=== PATIENT | female | born 1940 | race Caucasian/White ===

== ENCOUNTER 2016-11-28 13:20 | Observation (INO) | payer MEDICARE, OTHER ==
[2016-11-28] MEDS ORDERED: Sodium Chloride 0.9% 10 ML Syringe FLUSH PRN (13:35)
[2016-11-28] MEDS ORDERED: Aspirin 81 MG Tab.Chew PO ONE (13:39)
[2016-11-28] MEDS ORDERED: Labetalol 20 MG/4 ML Syringe IVPUSH ONE (13:40)
--- NOTE | 2016-11-28 13:45 | EDM.PDOC ---
[id number] 4d C/O Irregular heart beat Time Seen by Provider: 11/28/16 13:30 Source of Information: Reports: Patient History Limitations: Reports: No Limitations - History of Present Illness Onset: Gradual Onset Date: 11/28/16 Duration: Hour(s):, Intermittent Location: Reports: Chest, Upper Extremity, Left Severity: Mild Improves with: Reports: None Worsens with: Reports: None Associated Symptoms: Reports: Confusion (for the past 3 to 4 month notice increase confusion with the left hand numbness), Chest Pain Treatments STOCK TURNER: Reports: Aspirin, EKG, Other Medication(s) - Related Data Allergies Allergy/AdvReac Type Severity Reaction Status Date / Time albuterol Allergy Vomiting Verified 11/28/16 13:44 [From Proventil HFA] nitrofurantoin Allergy Rash Verified 11/28/16 13:44 macrocrystalline [From Macrobid] Penicillins Allergy Cannot Verified 11/28/16 13:44 Remember sulfamethoxazole Allergy Itching Verified 11/28/16 13:44 [From Bactrim] Home Meds: Home Meds Aspirin [Halfprin] 81 mg PO DAILY 06/05/13 [History] Calcium Carbonate/Vitamin D3 [Calcium 500 + Vit D 400] 1 tab PO BID 06/05/13 [ History] Diltiazem HCl [Diltiazem 24Hr ER] 180 mg PO BEDTIME 06/05/13 [History] Metoprolol Succinate [Toprol XL 100mg] 50 mg PO DAILY 06/05/13 [History] [place]-3 Fatty Acids/Fish Oil [Fish Oil 1,200 mg Softgel] 600 mg PO BID 06/05/13 [History] Ranitidine [Zantac] 150 mg PO BID 06/05/13 [History] atorvaSTATin [Lipitor] 20 mg PO BEDTIME 06/05/13 [History] Hydrochlorothiazide 12.5 mg PO DAILY 11/28/16 [History] Losartan Potassium [Cozaar] 100 mg PO DAILY 11/28/16 [History] Past Medical History HEENT History: Reports: Impaired Vision Cardiovascular History: Reports: Heart Murmur, High Cholesterol, Hypertension Other Cardiovascular History: vasovagal response Gastrointestinal History: Reports: GERD, Other (See Below) Other Gastrointestinal History: darren s esophagus [employer] History: Reports: Other (See Below) Other OB/BYN History: cysts removed from ovaries Musculoskeletal History: Reports: Arthritis Neurological History: Reports: Seizure Psychiatric History: Reports: None Endocrine/Metabolic History: Reports: None Hematologic History: Reports: None Immunologic History: Reports: None Oncologic (Cancer) History: Reports: None Dermatologic History: Reports: None - Infectious Disease History Infectious Disease History: Reports: Chicken Pox, Measles, Shingles - Past Surgical History HEENT Surgical History: Reports: Cataract Surgery Musculoskeletal Surgical History: Reports: Knee Replacement, Other (See Below) Social & Family History - Tobacco Use Smoking Status *Q: Never Smoker Second Hand Smoke Exposure: Yes - Caffeine Use Caffeine Use: Reports: Coffee - Alcohol Use Days Per Week of Alcohol Use: 0 - Recreational Drug Use Recreational Drug Use: No - Living Situation & Occupation Living situation: Reports: , with Family ED ROS GENERAL - Review of Systems Review Of Systems: See Below Constitutional: Reports: No Symptoms HEENT: Reports: No Symptoms Respiratory: Reports: Shortness of Breath Cardiovascular: Reports: Chest Pain, Blood Pressure Problem, Other (atrial fib.) Endocrine: Reports: No Symptoms GI/Abdominal: Reports: No Symptoms : Reports: No Symptoms Musculoskeletal: Reports: Other (left arm numbness) Skin: Reports: No Symptoms Neurological: Reports: Confusion, Numbness (left arm) Psychiatric: Reports: No Symptoms Hematologic/Lymphatic: Reports: No Symptoms Immunologic: Reports: No Symptoms ED EXAM, GENERAL - Physical Exam Exam: See Below Exam Limited By: No Limitations General Appearance: Alert, WD/WN, Obese Ears: Normal External Exam, Normal Canal Nose: Normal Inspection, Normal Mucosa, No Blood Throat/Mouth: Normal Inspection, Normal Lips Head: Atraumatic, Normocephalic. No: Facial Swelling, Facial Tenderness, Sinus Tenderness Neck: Normal Inspection, Supple Respiratory/Chest: No Respiratory Distress, Lungs Clear, Normal Breath Sounds, No Accessory Muscle Use, Chest Non-Tender Cardiovascular: Regular Rate, Rhythm, No Edema, No Murmur, No Rub GI/Abdominal: Normal Bowel Sounds, Soft Course - Vital Signs Last Recorded V/S: Last Vital Signs Temp 97.5 F 11/28/16 13:49 Pulse 51 L 11/28/16 14:55 Resp 20 11/28/16 14:55 BP 153/62 H 11/28/16 14:55 Pulse Ox 93 L 11/28/16 14:55 - Orders/Labs/Meds Orders: Active Orders 24 hr Category Date Time Status Admission Status [Patient Status] [ADT] Routine ADT 11/28/16 15:09 Active Cardiac Monitoring [RC] . DIRECTED Care 11/28/16 14:18 Active EKG Documentation Completion [RC] ASDIRECTED Care 11/28/16 13:36 Active CXR [Chest 2V] [CR] Stat Exams 11/28/16 13:34 Taken Head wo Cont [CT] Stat Exams 11/28/16 14:16 Taken Sodium Chloride 0.9% [Saline Flush] Med 11/28/16 13:35 Active 10 ml FLUSH ASDIRECTED PRN Saline Lock Insert [OM.PC] Stat Oth 11/28/16 13:34 Ordered Medication Orders Aspirin (Halfprin) 81 mg PO DAILY [facility] Calcium Carbonate (Caltrate 600+D 1500 Mg-400 Units) 1 tab PO BID FERN Diltiazem HCl (Cardizem Cd) 120 mg PO Q12H [facility]ERN Enoxaparin Sodium (Lovenox) 40 mg SUBCUT BEDTIME FERN Hydrochlorothiazide (Hydrochlorothiazide) 12.5 mg PO DAILY [facility] Non-Formulary Medication (Losartan Potassium [Cozaar]) 100 mg PO DAILY [facility]ERN Non-Formulary Medication (Metoprolol Succinate [Toprol Xl 100mg]) 50 mg PO DAILY [facility]ERN Non-Formulary Medication ([place]-3 Fatty Acids/Fish Oil [Fish Oil 1,200 Mg Softgel]) 600 mg PO BID FERN Non-Formulary Medication (Ranitidine [Zantac]) 150 mg PO BID [facility] Non-Formulary Medication (Atorvastatin [Lipitor]) 20 mg PO BEDTIME FERN Sodium Chloride (Saline Flush) 10 ml FLUSH ASDIRECTED PRN PRN Reason: Keep Vein Open Last Admin: 11/28/16 14:03 Dose: 10 ml Labs: Laboratory Tests 11/28/16 11/28/16 11/28/16 Range/Units 13:40 13:40 13:40 WBC 5.4 (4.0-10.2) K/uL RBC 4.25 (3.77-5.09) M/uL Hgb 14.1 (11.7-15.5) g/dL Hct 40.5 (34.0-46.0) % MCV 95.3 (84.0-98.0) fL MCH 33.2 (28.2-33.3) pg MCHC 34.8 (31.7-36.0) g/dL RDW 12.2 (11.2-14.1) % Plt Count 174 (150-350) K/uL Neut % (Auto) 51.8 (45.0-80.0) % Lymph % (Auto) 34.7 (10.0-50.0) % [place] % (Auto) 7.0 (2.0-14.0) % Eos % (Auto) 4.8 (0.0-5.0) % Baso % (Auto) 1.7 (0.0-2.0) % Neut # (Auto) 2.81 (1.40-7.00) K/uL Lymph # (Auto) 1.88 (0.50-3.50) K/uL [place] # (Auto) 0.38 (0.00-1.00) K/uL Eos # (Auto) 0.26 (0.00-0.50) K/uL Baso # (Auto) 0.09 (0.00-0.20) K/uL D-Dimer, Quantitative (0-400) ng/mL Sodium 139 (136-145) mmol/L Potassium 3.2 L (3.5-5.1) mmol/L Chloride 103 (98-107) mmol/L Carbon Dioxide 30.4 (21.0-32.0) mmol/L BUN 22 H (7-18) mg/dL Creatinine 0.97 (0.51-1.17) mg/dL Est Cr Clr Drug Dosing TNP Estimated GFR (MDRD) 56 mL/min Glucose 138 H (74-106) mg/dL Calcium 8.9 (8.5-10.1) mg/dL Troponin I 0.000 (0.000-0.056) ng/mL 11/28/16 Range/Units 13:40 WBC (4.0-10.2) K/uL RBC (3.77-5.09) M/uL Hgb (11.7-15.5) g/dL Hct (34.0-46.0) % MCV (84.0-98.0) fL MCH (28.2-33.3) pg MCHC (31.7-36.0) g/dL RDW (11.2-14.1) % Plt Count (150-350) K/uL Neut % (Auto) (45.0-80.0) % Lymph % (Auto) (10.0-50.0) % De[place] % (Auto) (2.0-14.0) % Eos % (Auto) (0.0-5.0) % Baso % (Auto) (0.0-2.0) % Neut # (Auto) (1.40-7.00) K/uL Lymph # (Auto) (0.50-3.50) K/uL Deuel # (Auto) (0.00-1.00) K/uL Eos # (Auto) (0.00-0.50) K/uL Baso # (Auto) (0.00-0.20) K/uL D-Dimer, Quantitative 439 H (0-400) ng/mL Sodium (136-145) mmol/L Potassium (3.5-5.1) mmol/L Chloride (98-107) mmol/L Carbon Dioxide (21.0-32.0) mmol/L BUN (7-18) mg/dL Creatinine (0.51-1.17) mg/dL Est Cr Clr Drug Dosing Estimated GFR (MDRD) mL/min Glucose (74-106) mg/dL Calcium (8.5-10.1) mg/dL Troponin I (0.000-0.056) ng/mL Meds: Medications Generic Name Dose Route Start Last Admin Trade Name Freq PRN Reason Stop Dose Admin Aspirin 81 mg 11/29/16 08:00 Halfprin PO DAILY FERN Calcium Carbonate 1 tab 11/28/16 18:00 Caltrate 600+D 1500 Mg-400 Units PO BID FERN Diltiazem HCl 120 mg 11/28/16 20:00 Cardizem Cd PO Q12H FERN Enoxaparin Sodium 40 mg 11/28/16 20:00 Lovenox SUBCUT BEDTIME FERN Hydrochlorothiazide 12.5 mg 11/29/16 08:00 Hydrochlorothiazide PO DAILY FERN Non-Formulary Medication 100 mg 11/29/16 08:00 Losartan Potassium [Cozaar] PO DAILY FERN Non-Formulary Medication 50 mg 11/29/16 08:00 Metoprolol Succinate [Toprol Xl 100mg] PO DAILY FERN Non-Formulary Medication 600 mg 11/28/16 18:00 [place]-3 Fatty Acids/Fish Oil [Fish Oil 1,200 Mg Softgel] PO BID FERN Non-Formulary Medication 150 mg 11/28/16 18:00 Ranitidine [Zantac] PO BID FERN Non-Formulary Medication 20 mg 11/28/16 20:00 Atorvastatin [Lipitor] PO BEDTIME FERN Sodium Chloride 10 ml 11/28/16 13:35 11/28/16 14:03 Saline Flush FLUSH 10 ml ASDIRECTED PRN Administration Keep Vein Open Discontinued Medications Generic Name Dose Route Start Last Admin Trade Name Freq PRN Reason Stop Dose Admin Aspirin 324 mg 11/28/16 13:39 11/28/16 13:48 Aspirin PO 11/28/16 13:40 324 mg ONETIME ONE Administration Iopamidol 100 ml 11/28/16 16:20 Isovue-370 (76%) IVPUSH 11/28/16 16:21 ONETIME ONE Labetalol HCl 10 mg 11/28/16 13:40 11/28/16 13:54 Normodyne IVPUSH 11/28/16 13:41 10 mg ONETIME ONE Administration Protocol Departure - Departure Time of Disposition: 15:18 Disposition: Refer to Observation Condition: fair Clinical Impression: Chest pain in adult - My Orders Last 24 Hours: My Active Orders 11/28/16 13:34 CXR [Chest 2V] [CR] Stat Saline Lock Insert [OM.PC] Stat 11/28/16 13:35 Sodium Chloride 0.9% [Saline Flush] 10 ml FLUSH ASDIRECTED PRN 11/28/16 13:36 EKG Documentation Completion [RC] ASDIRECTED 11/28/16 14:16 Head wo Cont [CT] Stat 11/28/16 14:18 Cardiac Monitoring [RC] . DIRECTED 11/28/16 15:09 Admission Status [Patient Status] [ADT] Routine - Assessment/Plan Last 24 Hours: My Active Orders 11/28/16 13:34 CXR [Chest 2V] [CR] Stat Saline Lock Insert [OM.PC] Stat 11/28/16 13:35 Sodium Chloride 0.9% [Saline Flush] 10 ml FLUSH ASDIRECTED PRN 11/28/16 13:36 EKG Documentation Completion [RC] ASDIRECTED 11/28/16 14:16 Head wo Cont [CT] Stat 11/28/16 14:18 Cardiac Monitoring [RC] . DIRECTED 11/28/16 15:09 Admission Status [Patient Status] [ADT] Routine
[2016-11-28 14:04] LABS: CHLORIDE,CL 103 mmol/L (98-107); SODIUM,NA 139 mmol/L (136-145)
[2016-11-28] MEDS ORDERED: Iopamidol 755 Mg/ML 100 ML Bottle IVPUSH ONE (16:20)
[2016-11-28] MEDS: Famotidine 20 MG Tab PO SCH (18:09)
[2016-11-28] MEDS: Calcium Carbonate/Vitamin D3 1500 MG-400 Units Tab PO SCH (18:10)
[2016-11-28] MEDS: Diltiazem 120 MG Cap.CD PO SCH (19:33)
[2016-11-28] MEDS ORDERED: Enoxaparin 40 MG/0.4 ML Syringe SUBCUT SCH (20:00)
[2016-11-28] MEDS ORDERED: atorvaSTATin 10 MG Tab PO SCH (20:00)
[2016-11-29 06:21] LABS: CHLORIDE,CL 106 mmol/L (98-107); SODIUM,NA 142 mmol/L (136-145)
[2016-11-29] MEDS: Calcium Carbonate/Vitamin D3 1500 MG-400 Units Tab PO SCH (07:14)
[2016-11-29] MEDS: Diltiazem 120 MG Cap.CD PO SCH (07:15)
[2016-11-29] MEDS: Famotidine 20 MG Tab PO SCH (07:16)
[2016-11-29 07:17] VITALS: BP 145/57
[2016-11-29] MEDS ORDERED: Hydrochlorothiazide 25 MG Tab PO SCH (08:00)
[2016-11-29] MEDS ORDERED: Losartan 50 MG Tab PO SCH (08:00)
[2016-11-29] MEDS ORDERED: Metoprolol Succinate 50 MG Tab.ER PO SCH (08:00)
[2016-11-29] MEDS ORDERED: Fish Oil/Omega-3 Fatty Acids 1 Gm Cap PO SCH (08:00)
[2016-11-29] MEDS ORDERED: Aspirin 81 MG Tab.EC PO SCH (08:00)
--- NOTE | 2016-11-29 09:29 | PCM.PN ---
- General Info Date of Service: 11/29/16 Admission Dx/Problem (Free Text): chest pain - Patient Data Vitals - most recent: Last Vital Signs Temp 98.3 F 11/29/16 08:00 Pulse 69 11/29/16 08:00 Resp 18 11/29/16 08:00 BP 145/57 H 11/29/16 08:00 Pulse Ox 94 L 11/29/16 08:00 Weight - most recent: 192 lb 8.016 oz I&O - last 24 hours: Intake & Output 11/28/16 11/29/16 11/29/16 22:59 06:59 14:59 Intake Total 940 1040 Output Total 1000 550 Balance -60 490 Lab Results last 24 hrs: Laboratory Results - last 24 hr 11/28/16 11/29/16 11/29/16 Range/Units 20:50 03:45 03:45 Sodium 142 (136-145) mmol/L Potassium 3.2 L (3.5-5.1) mmol/L Chloride 106 (98-107) mmol/L Carbon Dioxide 27.6 (21.0-32.0) mmol/L BUN 19 H (7-18) mg/dL Creatinine 0.89 (0.51-1.17) mg/dL Est Cr Clr Drug Dosing 40.58 mL/min Estimated GFR (MDRD) > 60 mL/min Glucose 95 (74-106) mg/dL Calcium 9.0 (8.5-10.1) mg/dL Troponin I 0.002 0.000 (0.000-0.056) ng/mL Med Orders - Current: Current Medications Aspirin (Halfprin) 81 mg PO DAILY [facility] Last Admin: 11/29/16 07:15 Dose: 81 mg Atorvastatin Calcium (Lipitor) 20 mg PO BEDTIME [facility] Last Admin: 11/28/16 19:33 Dose: 20 mg Calcium Carbonate (Caltrate 600+D 1500 Mg-400 Units) 1 tab PO BID [facility] Last Admin: 11/29/16 07:14 Dose: 1 tab Diltiazem HCl (Cardizem Cd) 120 mg PO Q12H [facility] Last Admin: 11/29/16 07:15 Dose: 120 mg Enoxaparin Sodium (Lovenox) 40 mg SUBCUT BEDTIME [facility] Last Admin: 11/28/16 19:39 Dose: 40 mg Famotidine (Pepcid) 10 mg PO BIDAC [facility] Last Admin: 11/29/16 07:16 Dose: 10 mg Fish Oil (Fish Oil) 1 gm PO DAILY [facility] Last Admin: 11/29/16 07:12 Dose: 1 gm Hydrochlorothiazide (Hydrochlorothiazide) 12.5 mg PO DAILY [facility] Last Admin: 11/29/16 07:13 Dose: 12.5 mg Losartan Potassium (Cozaar) 100 mg PO DAILY [facility] Last Admin: 11/29/16 07:14 Dose: 100 mg Metoprolol Succinate (Toprol Xl) 50 mg PO DAILY [facility] Last Admin: 11/29/16 07:15 Dose: 50 mg Sodium Chloride (Saline Flush) 10 ml FLUSH ASDIRECTED PRN PRN Reason: Keep Vein Open Last Admin: 11/28/16 14:03 Dose: 10 ml Discontinued Medications Aspirin (Aspirin) 324 mg PO ONETIME ONE Stop: 11/28/16 13:40 Last Admin: 11/28/16 13:48 Dose: 324 mg Iopamidol (Isovue-370 (76%)) 100 ml IVPUSH ONETIME ONE Stop: 11/28/16 16:21 Last Admin: 11/28/16 16:59 Dose: 100 ml Labetalol HCl (Normodyne) 10 mg IVPUSH ONETIME ONE PRN Reason: Protocol Stop: 11/28/16 13:41 Last Admin: 11/28/16 13:54 Dose: 10 mg - Problem List Review Problem List Initiated/Reviewed/Updated: Yes - My Orders Last 24 Hours: My Active Orders 11/28/16 15:54 Patient Status [ADT] Routine Ambulate [RC] ASDIRECTED Oxygen Therapy [RC] PRN VTE/DVT Education [RC] PER UNIT ROUTINE Vital Signs [RC] Q4H Resuscitation Status Routine 11/28/16 15:58 Cardiac Monitoring [RC] CONTINUOUS Notify Provider Vital Signs [RC] ASDIRECTED 11/28/16 16:05 EKG Documentation Completion [RC] ASDIRECTED 11/28/16 16:15 CTA Chest W WO Contrast [Ang Chest] [CT] Routine 11/28/16 17:30 Famotidine [Pepcid] 10 mg PO BIDAC 11/28/16 18:00 Calcium Carbonate/Vitamin D3 [Caltrate 600+D 1500 MG-400 Units] 1 tab PO BID 11/28/16 20:00 Diltiazem [Cardizem CD] 120 mg PO Q12H Enoxaparin [Lovenox] 40 mg SUBCUT BEDTIME atorvaSTATin [Lipitor] 20 mg PO BEDTIME 11/28/16 Dinner Regular Diet [DIET] 11/29/16 08:00 Aspirin [Halfprin] 81 mg PO DAILY Fish Oil/[place]-3 Fatty Acids [Fish Oil] 1 gm PO DAILY Hydrochlorothiazide 12.5 mg PO DAILY Losartan [Cozaar] 100 mg PO DAILY Metoprolol Succinate [Toprol XL] 50 mg PO DAILY 11/29/16 08:30 Venous Doppler Lwr Ext Bi [US] Routine
[2016-11-29] MEDS ORDERED: Potassium Chloride 20 MEQ Tab.ER PO SCH (09:30)
== END 2016-11-29 10:58 | disposition home or self-care (01) ==
LOC: LL.ED 13:20 → LL.MS 15:18
PROVIDERS: ADMIT Family Medicine; ATTEND Family Medicine
DX: R07.9 Chest pain, unspecified (principal); I10 Essential (primary) hypertension; E78.00 Pure hypercholesterolemia, unspecified; K21.9 Gastro-esophageal reflux disease without esophagitis; Z88.0 Allergy status to penicillin; Z88.2 Allergy status to sulfonamides; Z88.8 Allergy status to other drugs, medicaments and biological substances; Z79.82 Long term (current) use of aspirin; Z79.899 Other long term (current) drug therapy; Z98.890 Other specified postprocedural states; Z96.659 Presence of unspecified artificial knee joint
CPT/HCPCS: 36415; 70450; 71020; 71275; 80048; 84484; 85025; 85379; 93005; 93970; 96372; 96374; 99285; A9270; G0378; J1650; J7050; Q9967; 99217; 99219

== ENCOUNTER 2017-10-20 17:37 | Observation (INO) | payer MEDICARE, OTHER ==
[2017-10-20] MEDS ORDERED: Metoprolol Tartrate 25 MG Tab PO ONE (17:48)
[2017-10-20 18:51] LABS: CHLORIDE,CL 101 mmol/L (98-107); SODIUM,NA 137 mmol/L (136-145)
--- NOTE | 2017-10-20 19:00 | EDM.PDOC ---
ED HPI GENERAL MEDICAL PROBLEM - General Chief Complaint: General Stated Complaint: high blood pressure Time Seen by Provider: 10/20/17 18:13 Source of Information: Reports: Patient History Limitations: Reports: No Limitations - History of Present Illness INITIAL COMMENTS - FREE TEXT/NARRATIVE: Patient notes that she didn't feel well starting around 4pm. Complains of mild generalized headache. Intermittent epigastric fullness, left jaw feels a bit numb at times. Has had headaches and has felt like this in past when having elevated BP. Took own BP at home and noted systolic elevated at 170/111. Checked it a few more times and decided to come to the ER when systolic exceeded 200. Has not taken any extra BP meds. Denies any changes in medications except for starting Lexapro early in September, almost one month ago. Has history of widely variable BP readings, so this is not a new problem. She is on a number of BP medications in an attempt to keep BP under decent control. No recent illness or other health changes reported. Denies fevers/chills. Denies sweating. No other HEENT changes except for headache/jaw complaint. No SOB/cough/respiratory change. Has felt the epigastric fullness/heartburn like sensation but no radiation of discomfort noted. History of GERD and Harris's esophagus. No nausea/GI changes. No complaints. No vision changes/focal neuro changes. No other complaints. Was feeling like usual self this morning. Headache Pain Score (Numeric/FACES): 4 Epigastric Pain Score (Numeric/FACES): 3 - Related Data Allergies Allergy/AdvReac Type Severity Reaction Status Date / Time albuterol Allergy Vomiting Verified 10/20/17 20:48 [From Proventil HFA] nitrofurantoin Allergy Rash Verified 10/20/17 20:48 macrocrystalline [From Macrobid] Penicillins Allergy Cannot Verified 10/20/17 20:48 Remember sulfamethoxazole Allergy Itching Verified 10/20/17 20:48 [From Bactrim] Home Meds: Home Meds Aspirin [Halfprin] 81 mg PO Q2D 06/05/13 [History] Calcium Carbonate/Vitamin D3 [Calcium 500 + Vit D 400] 1 tab PO BID 06/05/13 [ History] Metoprolol Succinate [Toprol XL 100mg] 50 mg PO DAILY 06/05/13 [History] [place]-3 Fatty Acids/Fish Oil [Fish Oil 1,200 mg Softgel] 600 mg PO BID 06/05/13 [History] Ranitidine [Zantac] 150 mg PO BID 06/05/13 [History] atorvaSTATin [Lipitor] 20 mg PO BEDTIME 06/05/13 [History] Hydrochlorothiazide 12.5 mg PO DAILY 11/28/16 [History] Losartan Potassium [Cozaar] 100 mg PO DAILY 11/28/16 [History] Diltiazem [Cardizem CD] 120 mg PO BID #60 cap.cd 11/29/16 [Rx] Potassium Chloride [Klor-Con M20] 20 meq PO DAILY #30 tab.er 11/29/16 [Rx] Escitalopram [Lexapro] 10 mg PO BEDTIME 10/20/17 [History] Past Medical History HEENT History: Reports: Impaired Vision Cardiovascular History: Reports: Heart Murmur, High Cholesterol, Hypertension, Syncope Other Cardiovascular History: vasovagal response Gastrointestinal History: Reports: GERD, Other (See Below) Other Gastrointestinal History: darren s esophagus 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 (See Below) Other OB/BYN History: cysts removed from ovaries Musculoskeletal History: Reports: Arthritis Neurological History: Reports: Seizure Psychiatric History: Reports: None Endocrine/Metabolic History: Reports: None Hematologic History: Reports: None Immunologic History: Reports: None Oncologic (Cancer) History: Reports: None Dermatologic History: Reports: None - Infectious Disease History Infectious Disease History: Reports: Chicken Pox, Measles, Shingles - Past Surgical History HEENT Surgical History: Reports: Cataract Surgery Musculoskeletal Surgical History: Reports: Knee Replacement, Other (See Below) Social & Family History - Tobacco Use Smoking Status *Q: Never Smoker Second Hand Smoke Exposure: Yes - Caffeine Use Caffeine Use: Reports: Coffee - Alcohol Use Days Per Week of Alcohol Use: 0 - Recreational Drug Use Recreational Drug Use: No - Living Situation & Occupation Living situation: Reports: , with Family ED ROS GENERAL - Review of Systems Review Of Systems: See Below Constitutional: Reports: No Symptoms HEENT: Reports: Other (left jawline feels a bit numb) Respiratory: Reports: No Symptoms. Denies: Shortness of Breath, Wheezing, Pleuritic Chest Pain, Cough, Sputum, Hemoptysis Cardiovascular: Reports: Chest Pain (heartburn-like epigastric discomfort. ), Blood Pressure Problem. Denies: Dyspnea on Exertion, Edema, Lightheadedness, Palpitations, Syncope GI/Abdominal: Reports: No Symptoms : Reports: No Symptoms Musculoskeletal: Reports: Other (Jaw discomfort as noted above) Skin: Reports: No Symptoms Neurological: Reports: Headache. Denies: Confusion, Dizziness, Syncope, Trouble Speaking, Difficulty Walking, Weakness, Change in Speech, Gait Disturbance Psychiatric: Reports: No Symptoms Hematologic/Lymphatic: Reports: No Symptoms Immunologic: Reports: No Symptoms ED EXAM, GENERAL - Physical Exam Exam: See Below Exam Limited By: No Limitations General Appearance: Alert, WD/WN, No Apparent Distress Eye Exam: Bilateral Eye: EOMI, Normal Inspection, PERRL Ears: Normal External Exam Nose: No: Nasal Deformity, Nasal Swelling, Nasal Drainage Throat/Mouth: Normal Inspection, Normal Lips, Normal Voice, No Airway Compromise Head: Atraumatic, Normocephalic Neck: Normal Inspection, Supple, Non-Tender, Full Range of Motion. No: Lymphadenopathy (L), Lymphadenopathy (R) Respiratory/Chest: No Respiratory Distress, Lungs Clear, Normal Breath Sounds, No Accessory Muscle Use, Chest Non-Tender Cardiovascular: Normal Peripheral Pulses, Regular Rate, Rhythm, No Edema, No Murmur Peripheral Pulses: 2+: Radial (L), Radial (R), Dorsalis Pedis (L), Dorsalis Pedis (R) GI/Abdominal: Normal Bowel Sounds, Soft, Non-Tender, No Distention (Female) Exam: Deferred Rectal (Female) Exam: Deferred Back Exam: Normal Inspection. No: CVA Tenderness (L), Paraspinal Tenderness Extremities: Normal Inspection, Normal Range of Motion, Non-Tender, No Pedal Edema, Normal Capillary Refill Neurological: Alert, Oriented, CN II-XII Intact, Normal Cognition, Normal Gait, No Motor/Sensory Deficits Psychiatric: Flat Affect (pleasant but somewhat flat affect noted. ) Skin Exam: Warm, Dry, Intact, Normal Color EKG INTERPRETATION EKG Date: 10/20/17 Time: 19:04 Rhythm: Other (Sinus Bradycardia) Rate (Beats/Min): 50 [place]or: Normal P-Wave: Present QRS: Normal ST-T: Normal QT: Normal MO/PQ Interval: 1st degree AV block, MO interval 212ms Comparison: Other: (Minimal change from previous EKG except for previous MO interval of 200ms and today it was 212. Has history of bradycardia.) Course - Vital Signs Last Recorded V/S: Last Vital Signs Temp 36.2 C 10/20/17 17:40 Pulse 53 L 10/20/17 19:00 Resp 18 10/20/17 19:00 BP 178/66 H 10/20/17 19:00 Pulse Ox 95 10/20/17 19:00 - Orders/Labs/Meds Orders: Active Orders 24 hr Category Date Time Status EKG Documentation Completion [RC] ASDIRECTED Care 10/20/17 18:51 Active Chest 2V [CR] Routine Exams 10/20/17 20:05 Ordered MG [MAGNESIUM] [CHEM] Stat Lab 10/20/17 18:30 Results UA W/MICROSCOPIC [URIN] Stat Lab 10/20/17 19:00 Ordered VITAMIN D,25-HYDROXY [CHEM] Stat Lab 10/20/17 18:30 Results Sodium Chloride 0.9% [Saline Flush] Med 10/20/17 18:59 Active 10 ml FLUSH ASDIRECTED PRN Saline Lock Insert [OM.PC] Routine Oth 10/20/17 18:58 Ordered Medication Orders Sodium Chloride (Saline Flush) 10 ml FLUSH ASDIRECTED PRN PRN Reason: Keep Vein Open Labs: Laboratory Tests 10/20/17 10/20/17 10/20/17 Range/Units 18:30 18:30 18:30 WBC 5.8 (4.0-10.2) K/uL RBC 4.05 (3.77-5.09) M/uL Hgb 13.7 (11.7-15.5) g/dL Hct 38.7 (34.0-46.0) % MCV 95.6 (84.0-98.0) fL MCH 33.8 H (28.2-33.3) pg MCHC 35.4 (31.7-36.0) g/dL RDW 12.1 (11.2-14.1) % Plt Count 169 (150-350) K/uL Neut % (Auto) 46.7 (45.0-80.0) % Lymph % (Auto) 36.8 (10.0-50.0) % [place] % (Auto) 12.0 (2.0-14.0) % Eos % (Auto) 3.6 (0.0-5.0) % Baso % (Auto) 0.9 (0.0-2.0) % Neut # (Auto) 2.69 (1.40-7.00) K/uL Lymph # (Auto) 2.12 (0.50-3.50) K/uL [place] # (Auto) 0.69 (0.00-1.00) K/uL Eos # (Auto) 0.21 (0.00-0.50) K/uL Baso # (Auto) 0.05 (0.00-0.20) K/uL Sodium 137 (136-145) mmol/L Potassium 3.3 L (3.5-5.1) mmol/L Chloride 101 (98-107) mmol/L Carbon Dioxide 29.5 (21.0-32.0) mmol/L BUN 20 H (7-18) mg/dL Creatinine 0.88 (0.51-1.17) mg/dL Est Cr Clr Drug Dosing 40.40 mL/min Estimated GFR (MDRD) > 60 mL/min Glucose 98 (74-106) mg/dL Calcium 9.0 (8.5-10.1) mg/dL Magnesium 1.8 (1.8-2.4) mg/dL Total Bilirubin 0.5 (0.2-1.0) mg/dL AST 22 (15-37) U/L ALT 40 (12-78) U/L Alkaline Phosphatase 60 (46-116) IU/L Creatine Kinase (26-308) U/L Creatine Kinase Index (0.0-2.5) % CK-MB (CK-2) (0.00-3.60) ng/mL Troponin I (0.000-0.056) ng/mL Total Protein 7.1 (6.4-8.2) g/dL Albumin 3.8 (3.4-5.0) g/dL Specimen Type Urine Color Urine Appearance Urine pH (5.0-9.0) Ur Specific [place] (1.005-1.030) Urine Protein (NEGATIVE) mg/dL Urine Glucose (UA) (NEGATIVE) mg/dL Urine Ketones (NEGATIVE) mg/dL Urine Occult Blood (NEGATIVE) Urine Nitrite (NEGATIVE) Urine Bilirubin (NEGATIVE) Urine Urobilinogen (0.2-1.0) E.U./dL Ur Leukocyte Esterase (NEGATIVE) Urine RBC /HPF Urine WBC /HPF Ur Epithelial Cells /LPF Urine Bacteria (NONE TO FEW) /HPF 10/20/17 10/20/17 Range/Units 18:30 19:00 WBC (4.0-10.2) K/uL RBC (3.77-5.09) M/uL Hgb (11.7-15.5) g/dL Hct (34.0-46.0) % MCV (84.0-98.0) fL MCH (28.2-33.3) pg MCHC (31.7-36.0) g/dL RDW (11.2-14.1) % Plt Count (150-350) K/uL Neut % (Auto) (45.0-80.0) % Lymph % (Auto) (10.0-50.0) % [place] % (Auto) (2.0-14.0) % Eos % (Auto) (0.0-5.0) % Baso % (Auto) (0.0-2.0) % Neut # (Auto) (1.40-7.00) K/uL Lymph # (Auto) (0.50-3.50) K/uL [place] # (Auto) (0.00-1.00) K/uL Eos # (Auto) (0.00-0.50) K/uL Baso # (Auto) (0.00-0.20) K/uL Sodium (136-145) mmol/L Potassium (3.5-5.1) mmol/L Chloride (98-107) mmol/L Carbon Dioxide (21.0-32.0) mmol/L BUN (7-18) mg/dL Creatinine (0.51-1.17) mg/dL Est Cr Clr Drug Dosing mL/min Estimated GFR (MDRD) mL/min Glucose (74-106) mg/dL Calcium (8.5-10.1) mg/dL Magnesium (1.8-2.4) mg/dL Total Bilirubin (0.2-1.0) mg/dL AST (15-37) U/L ALT (12-78) U/L Alkaline Phosphatase (46-116) IU/L Creatine Kinase 89 (26-308) U/L Creatine Kinase Index 1.9 (0.0-2.5) % CK-MB (CK-2) 1.70 (0.00-3.60) ng/mL Troponin I 0.005 (0.000-0.056) ng/mL Total Protein (6.4-8.2) g/dL Albumin (3.4-5.0) g/dL Specimen Type Urinblad Urine Color Light yellow Urine Appearance Clear Urine pH 7.0 (5.0-9.0) Ur Specific [place] 1.010 (1.005-1.030) Urine Protein Negative (NEGATIVE) mg/dL Urine Glucose (UA) Negative (NEGATIVE) mg/dL Urine Ketones Negative (NEGATIVE) mg/dL Urine Occult Blood Negative (NEGATIVE) Urine Nitrite Negative (NEGATIVE) Urine Bilirubin Negative (NEGATIVE) Urine Urobilinogen 0.2 (0.2-1.0) E.U./dL Ur Leukocyte Esterase Negative (NEGATIVE) Urine RBC 0-5 /HPF Urine WBC 0-5 /HPF Ur Epithelial Cells Rare /LPF Urine Bacteria Rare (NONE TO FEW) /HPF Meds: Medications Generic Name Dose Route Start Last Admin Trade Name Freq PRN Reason Stop Dose Admin Sodium Chloride 10 ml 10/20/17 18:59 Saline Flush FLUSH ASDIRECTED PRN Keep Vein Open Discontinued Medications Generic Name Dose Route Start Last Admin Trade Name Freq PRN Reason Stop Dose Admin Metoprolol Tartrate 25 mg 10/20/17 17:48 10/20/17 17:54 Lopressor PO 10/20/17 17:49 25 mg ONETIME ONE Administration - Radiology Interpretation Free Text/Narrative:: Chest xray shows cardiomegaly. No localized infiltrates/pneumo noted. - Re-Assessments/Exams Free Text/Narrative Re-Assessment/Exam: 10/20/17 19:55 Headache improved as BP improved after single dose Metoprolol given in ER. EKG unremarkable except for bradycardia and 1st degree AV block. Patient reports that her pulse is usually in low 50s. Troponin/CKMB normal. CBC/UA/Chem normal except for mild decrease in K as well as low normal serum Mg. Low serum Magnesium is associated with very low intracellular Mg levels, as well as hypertension/CAD/depression thus Mg Sulfate ordered given patient's BP issues. Plan at this time is to admit patient overnight and continue telemetry and monitoring of BP trend. Repeat Troponin and EKG planned for morning. Departure - Departure Time of Disposition: 20:15 Disposition: Refer to Observation Condition: Good Clinical Impression: Hypertension, Epigastric discomfort - Discharge Information Referrals: Jonathan Ribeiro NP [Primary Care Provider] - Forms: ED Department Discharge - Problem List & Annotations (1) Epigastric discomfort SNOMED Code(s): 871529080 Code(s): R10.13 - EPIGASTRIC PAIN Status: Chronic Priority: High Annotation/Comment:: Patient does have long history of GERD/Harris's and suspect that her complaint is likely related to this. However, given the elevated BP as well as left jaw numbness, will admit patient to Obs overnight and continue to monitory BP/Telemetry as well as repeat cardiac labs and EKG in the morning. (2) Hypomagnesemia SNOMED Code(s): 561980622 Code(s): E83.42 - HYPOMAGNESEMIA Status: Acute Priority: High Annotation/Comment:: Patient has very low normal level of serum Magnesium which in turn reflects significant depletion of intracellualar Magnesium. As low Mag is associated with a variety of problems, inclusing hypertension, supplemental IV magnesium is ordered with recheck of level tomorrow. (3) Hypokalemia SNOMED Code(s): 93771477 Code(s): E87.6 - HYPOKALEMIA Status: Chronic Priority: Medium Onset Date: ~08/20/16 Annotation/Comment:: 3.2 Will give additional K orally and recheck level tomorrow. Patient is already on daily supplementation. (4) Hypertension SNOMED Code(s): 55692513 Code(s): I10 - ESSENTIAL (PRIMARY) HYPERTENSION Status: Chronic Priority : Medium Annotation/Comment:: Continue to observe closely. Long history of widely variable BP trends. Improved in ER. Qualifiers: Hypertension type: essential hypertension Qualified Code(s): I10 - Essential (primary) hypertension (5) Peptic reflux disease SNOMED Code(s): 838221352 Code(s): K21.9 - GASTRO-ESOPHAGEAL REFLUX DISEASE WITHOUT ESOPHAGITIS Status: Chronic Priority: Medium Annotation/Comment:: Stable by patient history with previous history of Harris's esophagitis - Problem List Review Problem List Initiated/Reviewed/Updated: Yes - My Orders Last 24 Hours: My Active Orders 10/20/17 18:30 MG [MAGNESIUM] [CHEM] Stat VITAMIN D,25-HYDROXY [CHEM] Stat 10/20/17 18:51 EKG Documentation Completion [RC] ASDIRECTED 10/20/17 18:58 Saline Lock Insert [OM.PC] Routine 10/20/17 18:59 Sodium Chloride 0.9% [Saline Flush] 10 ml FLUSH ASDIRECTED PRN 10/20/17 19:00 UA W/MICROSCOPIC [URIN] Stat 10/20/17 20:05 Chest 2V [CR] Routine - Assessment/Plan Admission H&P: Please use this note as an admission H&P Last 24 Hours: My Active Orders 10/20/17 18:30 MG [MAGNESIUM] [CHEM] Stat VITAMIN D,25-HYDROXY [CHEM] Stat 10/20/17 18:51 EKG Documentation Completion [RC] ASDIRECTED 10/20/17 18:58 Saline Lock Insert [OM.PC] Routine 10/20/17 18:59 Sodium Chloride 0.9% [Saline Flush] 10 ml FLUSH ASDIRECTED PRN 10/20/17 19:00 UA W/MICROSCOPIC [URIN] Stat 10/20/17 20:05 Chest 2V [CR] Routine Assessment:: as above Plan: as above
[2017-10-20] MEDS ORDERED: Pantoprazole 40 MG Vial IVPUSH ONE (20:59)
[2017-10-20] MEDS ORDERED: Potassium Chloride 20 MEQ Tab.ER PO ONE (21:02)
[2017-10-20] MEDS: Sodium Chloride 0.9% 10 ML Syringe FLUSH PRN (21:47)
[2017-10-21] MEDS: Sodium Chloride 0.9% 10 ML Syringe FLUSH PRN ×2 (05:32→07:39)
[2017-10-21] MEDS ORDERED: Potassium Chloride 20 MEQ Tab.ER PO ONE (06:00)
[2017-10-21] MEDS ORDERED: Diltiazem 120 MG Cap.CD PO SCH (08:00)
[2017-10-21] MEDS ORDERED: Pantoprazole 40 MG Vial IVPUSH ONE (08:00)
[2017-10-21] MEDS ORDERED: Metoprolol Succinate 50 MG Tab.ER PO SCH (08:00)
[2017-10-21] MEDS ORDERED: Losartan 50 MG Tab PO SCH (08:00)
[2017-10-21] MEDS ORDERED: Hydrochlorothiazide 25 MG Tab PO SCH (08:00)
[2017-10-21] MEDS ORDERED: Aspirin 81 MG Tab.EC PO SCH (09:00)
[2017-10-21 12:40] VITALS: BP 143/59
--- NOTE | 2017-10-21 13:31 | PCM.DCSUM1 ---
Discharge Summary - Hospital Course Brief History: Patient came to ER with complaint of elevated blood pressures, headache, left jaw numbness, and epigastric discomfort. - Discharge Data Discharge Date: 10/21/17 Discharge Disposition: Home, Self-Care 01 Condition: Good - Discharge Diagnosis/Problem(s) (1) Epigastric discomfort SNOMED Code(s): 008464999 ICD Code: R10.13 - EPIGASTRIC PAIN Status: Chronic Priority: High Current Visit: No Problem Details: Patient does have long history of GERD/ Harris's and suspect that her complaint is likely related to this. Currently pain-free. Given Protonix last night as well as this morning. Cardiac labs negative last night and this morning. No indication of ischemia noted on EKGs. (2) Hypomagnesemia SNOMED Code(s): 867781013 ICD Code: E83.42 - HYPOMAGNESEMIA Status: Acute Priority: High Current Visit: No Problem Details: Patient had low normal level of serum Magnesium which in turn reflects significant depletion of intracellualar Magnesium. As low Mag is associated with a variety of problems, including hypertension, supplemental IV magnesium was ordered. BP did trend downward overnight and is in very good range this morning. Will recommend PO supplementation to be started in two weeks as range now at upper normal limits when level rechecked today so Magnesium levels will have a chance to drop back within more normal range. (3) Hypokalemia SNOMED Code(s): 01836782 ICD Code: E87.6 - HYPOKALEMIA Status: Chronic Priority: Medium Current Visit: No Onset Date: ~08/20/16 Problem Details: Improved today. Recommended patient to increase Potassium supplement to 20mg twice daily three times a week and on other days to stay with 20mg dose she is currently taking. (4) Hypertension SNOMED Code(s): 54384178 ICD Code: I10 - ESSENTIAL (PRIMARY) HYPERTENSION Status: Chronic Priority : Medium Current Visit: No Problem Details: Significantly improved. Patient states that it has been a "very long time" since her BP has been in this range. Suspect improvement was due to Magnesium given. No other medication changes performed other than patient receiving single dose of short acting Metoprolol after arrival to ER last night. Qualifiers: Hypertension type: essential hypertension Qualified Code(s): I10 - Essential (primary) hypertension (5) Peptic reflux disease SNOMED Code(s): 579537249 ICD Code: K21.9 - GASTRO-ESOPHAGEAL REFLUX DISEASE WITHOUT ESOPHAGITIS Status: Chronic Priority: Medium Current Visit: No Problem Details: Stable by patient history with previous history of Harris's esophagitis (6) Bradycardia SNOMED Code(s): 57548121 ICD Code: R00.1 - BRADYCARDIA, UNSPECIFIED Status: Chronic Priority: Low Current Visit: Yes Problem Details: Longstanding history of bradycardia. To date, it does not appear to be symptomatic per patient. Suspect it is influenced by antihypertensive regiment patient is currently on. (7) Low vitamin D level SNOMED Code(s): 770976084 ICD Code: E55.9 - VITAMIN D DEFICIENCY, UNSPECIFIED Status: Chronic Priority: Medium Current Visit: Yes Problem Details: Testing shows Vit D level on the very bottom of 'normal' at 33. Increasing evidence that this is still too low a level. Recommend daily supplementation with follow up by primary in future for routine yearly testing with target of 45-50. - Patient Summary/Data Complications: none Hospital Course: Significant improvement of BP observed throughout stay. Patient is currently without complaint and feels well. Negative serial cardiac labs. - Patient Instructions Diet: Usual Diet as Tolerated (Recommend decrease in sugar/processed food/high glycemic carbs) Activity: As Tolerated Driving: May Drive Today Showering/Bathing: May Shower Other/Special Instructions: Follow up with primary provider within next several weeks to review current med regimen and BP/pulse trends. Follow up as needed otherwise if you have problems. - Discharge Plan Home Medications: Home Meds Aspirin [Halfprin] 81 mg PO Q2D 06/05/13 [History] Calcium Carbonate/Vitamin D3 [Calcium 500 + Vit D 400] 1 tab PO BID 06/05/13 [ History] Metoprolol Succinate [Toprol XL 100mg] 50 mg PO DAILY 06/05/13 [History] Elizabeth-3 Fatty Acids/Fish Oil [Fish Oil 1,200 mg Softgel] 600 mg PO BID 06/05/13 [History] Ranitidine [Zantac] 150 mg PO BID 06/05/13 [History] atorvaSTATin [Lipitor] 20 mg PO BEDTIME 06/05/13 [History] Hydrochlorothiazide 12.5 mg PO DAILY 11/28/16 [History] Losartan Potassium [Cozaar] 100 mg PO DAILY 11/28/16 [History] Diltiazem [Cardizem CD] 120 mg PO BID #60 cap.cd 11/29/16 [Rx] Potassium Chloride [Klor-Con M20] 20 meq PO DAILY #30 tab.er 11/29/16 [Rx] Escitalopram [Lexapro] 10 mg PO BEDTIME 10/20/17 [History] Forms: ED Department Discharge Referrals: Jonathan Ribeiro NP [Primary Care Provider] - - Discharge Summary/Plan Comment DC Time >30 min.: No - General Info Date of Service: 10/21/17 Admission Dx/Problem (Free Text: Admitted for exacerbation of hypertension as well as epigastric discomfort/ telemetry/repeat troponin. Functional Status: Reports: Pain Controlled, Tolerating Diet, Ambulating. Denies: New Symptoms - Review of Systems General: Reports: No Symptoms HEENT: Reports: No Symptoms, Glasses Pulmonary: Reports: No Symptoms Cardiovascular: Reports: No Symptoms Gastrointestinal: Reports: No Symptoms Genitourinary: Reports: No Symptoms Musculoskeletal: Reports: No Symptoms Skin: Reports: No Symptoms Neurological: Reports: No Symptoms Psychiatric: Reports: No Symptoms - Patient Data Vitals - Most Recent: Last Vital Signs Temp 36.8 C 10/21/17 07:20 Pulse 52 L 10/21/17 12:00 Resp 16 10/21/17 12:00 BP 143/59 H 10/21/17 12:00 Pulse Ox 96 10/21/17 12:00 Weight - Most Recent: 87.679 kg I&O - Last 24 hours: Intake & Output 10/20/17 10/21/17 10/21/17 22:59 06:59 14:59 Intake Total 100 240 Output Total 500 Balance 100 -500 240 Lab Results - Last 24 hrs: Laboratory Results - last 24 hr 10/20/17 10/20/17 10/20/17 Range/Units 18:30 18:30 18:30 WBC 5.8 (4.0-10.2) K/uL RBC 4.05 (3.77-5.09) M/uL Hgb 13.7 (11.7-15.5) g/dL Hct 38.7 (34.0-46.0) % MCV 95.6 (84.0-98.0) fL MCH 33.8 H (28.2-33.3) pg MCHC 35.4 (31.7-36.0) g/dL RDW 12.1 (11.2-14.1) % Plt Count 169 (150-350) K/uL Neut % (Auto) 46.7 (45.0-80.0) % Lymph % (Auto) 36.8 (10.0-50.0) % [place] % (Auto) 12.0 (2.0-14.0) % Eos % (Auto) 3.6 (0.0-5.0) % Baso % (Auto) 0.9 (0.0-2.0) % Neut # (Auto) 2.69 (1.40-7.00) K/uL Lymph # (Auto) 2.12 (0.50-3.50) K/uL [place] # (Auto) 0.69 (0.00-1.00) K/uL Eos # (Auto) 0.21 (0.00-0.50) K/uL Baso # (Auto) 0.05 (0.00-0.20) K/uL Sodium 137 (136-145) mmol/L Potassium 3.3 L (3.5-5.1) mmol/L Chloride 101 (98-107) mmol/L Carbon Dioxide 29.5 (21.0-32.0) mmol/L BUN 20 H (7-18) mg/dL Creatinine 0.88 (0.51-1.17) mg/dL Est Cr Clr Drug Dosing 40.40 mL/min Estimated GFR (MDRD) > 60 mL/min Glucose 98 (74-106) mg/dL Calcium 9.0 (8.5-10.1) mg/dL Magnesium 1.8 (1.8-2.4) mg/dL Total Bilirubin 0.5 (0.2-1.0) mg/dL AST 22 (15-37) U/L ALT 40 (12-78) U/L Alkaline Phosphatase 60 (46-116) IU/L Creatine Kinase (26-308) U/L Creatine Kinase Index (0.0-2.5) % CK-MB (CK-2) (0.00-3.60) ng/mL Troponin I (0.000-0.056) ng/mL Total Protein 7.1 (6.4-8.2) g/dL Albumin 3.8 (3.4-5.0) g/dL Vitamin D 25-Hydroxy 33.7 (30-100) ng/mL Specimen Type Urine Color Urine Appearance Urine pH (5.0-9.0) Ur Specific [place] (1.005-1.030) Urine Protein (NEGATIVE) mg/dL Urine Glucose (UA) (NEGATIVE) mg/dL Urine Ketones (NEGATIVE) mg/dL Urine Occult Blood (NEGATIVE) Urine Nitrite (NEGATIVE) Urine Bilirubin (NEGATIVE) Urine Urobilinogen (0.2-1.0) E.U./dL Ur Leukocyte Esterase (NEGATIVE) Urine RBC /HPF Urine WBC /HPF Ur Epithelial Cells /LPF Urine Bacteria (NONE TO FEW) /HPF 10/20/17 10/20/17 10/21/17 Range/Units 18:30 19:00 07:00 WBC 4.6 (4.0-10.2) K/uL RBC 3.81 (3.77-5.09) M/uL Hgb 13.0 (11.7-15.5) g/dL Hct 37.0 (34.0-46.0) % MCV 97.1 (84.0-98.0) fL MCH 34.1 H (28.2-33.3) pg MCHC 35.1 (31.7-36.0) g/dL RDW 12.2 (11.2-14.1) % Plt Count 158 (150-350) K/uL Neut % (Auto) 42.2 L (45.0-80.0) % Lymph % (Auto) 38.4 (10.0-50.0) % [place] % (Auto) 14.4 H (2.0-14.0) % Eos % (Auto) 4.1 (0.0-5.0) % Baso % (Auto) 0.9 (0.0-2.0) % Neut # (Auto) 1.96 (1.40-7.00) K/uL Lymph # (Auto) 1.78 (0.50-3.50) K/uL [place] # (Auto) 0.67 (0.00-1.00) K/uL Eos # (Auto) 0.19 (0.00-0.50) K/uL Baso # (Auto) 0.04 (0.00-0.20) K/uL Sodium (136-145) mmol/L Potassium (3.5-5.1) mmol/L Chloride (98-107) mmol/L Carbon Dioxide (21.0-32.0) mmol/L BUN (7-18) mg/dL Creatinine (0.51-1.17) mg/dL Est Cr Clr Drug Dosing mL/min Estimated GFR (MDRD) mL/min Glucose (74-106) mg/dL Calcium (8.5-10.1) mg/dL Magnesium (1.8-2.4) mg/dL Total Bilirubin (0.2-1.0) mg/dL AST (15-37) U/L ALT (12-78) U/L Alkaline Phosphatase (46-116) IU/L Creatine Kinase 89 (26-308) U/L Creatine Kinase Index 1.9 (0.0-2.5) % CK-MB (CK-2) 1.70 (0.00-3.60) ng/mL Troponin I 0.005 (0.000-0.056) ng/mL Total Protein (6.4-8.2) g/dL Albumin (3.4-5.0) g/dL Vitamin D 25-Hydroxy (30-100) ng/mL Specimen Type Urinblad Urine Color Light yellow Urine Appearance Clear Urine pH 7.0 (5.0-9.0) Ur Specific [place] 1.010 (1.005-1.030) Urine Protein Negative (NEGATIVE) mg/dL Urine Glucose (UA) Negative (NEGATIVE) mg/dL Urine Ketones Negative (NEGATIVE) mg/dL Urine Occult Blood Negative (NEGATIVE) Urine Nitrite Negative (NEGATIVE) Urine Bilirubin Negative (NEGATIVE) Urine Urobilinogen 0.2 (0.2-1.0) E.U./dL Ur Leukocyte Esterase Negative (NEGATIVE) Urine RBC 0-5 /HPF Urine WBC 0-5 /HPF Ur Epithelial Cells Rare /LPF Urine Bacteria Rare (NONE TO FEW) /HPF 10/21/17 Range/Units 07:00 WBC (4.0-10.2) K/uL RBC (3.77-5.09) M/uL Hgb (11.7-15.5) g/dL Hct (34.0-46.0) % MCV (84.0-98.0) fL MCH (28.2-33.3) pg MCHC (31.7-36.0) g/dL RDW (11.2-14.1) % Plt Count (150-350) K/uL Neut % (Auto) (45.0-80.0) % Lymph % (Auto) (10.0-50.0) % [place] % (Auto) (2.0-14.0) % Eos % (Auto) (0.0-5.0) % Baso % (Auto) (0.0-2.0) % Neut # (Auto) (1.40-7.00) K/uL Lymph # (Auto) (0.50-3.50) K/uL [place] # (Auto) (0.00-1.00) K/uL Eos # (Auto) (0.00-0.50) K/uL Baso # (Auto) (0.00-0.20) K/uL Sodium 139 (136-145) mmol/L Potassium 4.0 (3.5-5.1) mmol/L Chloride 105 (98-107) mmol/L Carbon Dioxide 29.9 (21.0-32.0) mmol/L BUN 17 (7-18) mg/dL Creatinine 0.95 (0.51-1.17) mg/dL Est Cr Clr Drug Dosing 37.42 mL/min Estimated GFR (MDRD) 57 mL/min Glucose 101 (74-106) mg/dL Calcium 8.7 (8.5-10.1) mg/dL Magnesium 2.7 H (1.8-2.4) mg/dL Total Bilirubin (0.2-1.0) mg/dL AST (15-37) U/L ALT (12-78) U/L Alkaline Phosphatase (46-116) IU/L Creatine Kinase 54 (26-308) U/L Creatine Kinase Index 2.2 (0.0-2.5) % CK-MB (CK-2) 1.20 (0.00-3.60) ng/mL Troponin I 0.006 (0.000-0.056) ng/mL Total Protein (6.4-8.2) g/dL Albumin (3.4-5.0) g/dL Vitamin D 25-Hydroxy (30-100) ng/mL Specimen Type Urine Color Urine Appearance Urine pH (5.0-9.0) Ur Specific [place] (1.005-1.030) Urine Protein (NEGATIVE) mg/dL Urine Glucose (UA) (NEGATIVE) mg/dL Urine Ketones (NEGATIVE) mg/dL Urine Occult Blood (NEGATIVE) Urine Nitrite (NEGATIVE) Urine Bilirubin (NEGATIVE) Urine Urobilinogen (0.2-1.0) E.U./dL Ur Leukocyte Esterase (NEGATIVE) Urine RBC /HPF Urine WBC /HPF Ur Epithelial Cells /LPF Urine Bacteria (NONE TO FEW) /HPF Med Orders - Current: Current Medications Aspirin (Halfprin) 81 mg PO Q2D [facility] Last Admin: 10/21/17 08:58 Dose: 81 mg Atorvastatin Calcium (Lipitor) 20 mg PO BEDTIME [facility] Diltiazem HCl (Cardizem Cd) 120 mg PO BID [facility] Last Admin: 10/21/17 07:38 Dose: 120 mg Escitalopram Oxalate (Lexapro) 10 mg PO BEDTIME [facility] Hydrochlorothiazide (Hydrochlorothiazide) 12.5 mg PO DAILY [facility] Last Admin: 10/21/17 07:38 Dose: 12.5 mg Losartan Potassium (Cozaar) 100 mg PO DAILY [facility] Last Admin: 10/21/17 07:37 Dose: 100 mg Metoprolol Succinate (Toprol Xl) 50 mg PO DAILY [facility] Last Admin: 10/21/17 07:38 Dose: 50 mg Sodium Chloride (Saline Flush) 10 ml FLUSH ASDIRECTED PRN PRN Reason: Keep Vein Open Last Admin: 10/21/17 07:39 Dose: 10 ml Discontinued Medications Magnesium Sulfate/Dextrose (Magnesium 1 Gm In D5w 100 Ml) 100 mls @ 100 mls/hr IV ONETIME ONE Stop: 10/21/17 06:59 Last Admin: 10/21/17 05:31 Dose: 100 mls/hr Magnesium Sulfate/Dextrose (Magnesium 1 Gm In D5w 100 Ml) 1 gm IV NOW ONE Stop: 10/20/17 21:04 Last Admin: 10/20/17 21:47 Dose: 1 gm Metoprolol Tartrate (Lopressor) 25 mg PO ONETIME ONE Stop: 10/20/17 17:49 Last Admin: 10/20/17 17:54 Dose: 25 mg Pantoprazole Sodium (Protonix Iv) 40 mg IVPUSH ONETIME ONE Stop: 10/20/17 21:00 Last Admin: 10/20/17 21:47 Dose: 40 mg Pantoprazole Sodium (Protonix Iv) 40 mg IVPUSH ONETIME ONE Stop: 10/21/17 08:01 Last Admin: 10/21/17 07:37 Dose: 40 mg Potassium Chloride (Klor-Con M20) 40 meq PO ONETIME ONE Stop: 10/20/17 21:03 Last Admin: 10/20/17 21:46 Dose: 40 meq Potassium Chloride (Klor-Con M20) 40 meq PO ONETIME ONE Stop: 10/21/17 06:01 Last Admin: 10/21/17 05:31 Dose: 40 meq - Exam General: Reports: Alert, Oriented, Cooperative, No Acute Distress HEENT: Reports: Pupils Equal, Pupils Reactive, EOMI, Mucous Membr. Moist/[place] Neck: Reports: Supple Lungs: Reports: Clear to Auscultation, Normal Respiratory Effort Cardiovascular: Reports: Regular Rhythm, Bradycardia GI/Abdominal Exam: Normal Bowel Sounds, Soft, Non-Tender (Female) Exam: Deferred Rectal (Female) Exam: Deferred Extremities: Non-Tender, Normal Capillary Refill Skin: Reports: Warm, Dry Neurological: Reports: No New Focal Deficit Psy/Mental Status: Reports: Alert, Normal Affect, Normal Mood EKG INTERPRETATION EKG Date: 10/21/17 Time: 13:01 Rhythm: Other (bradycardia) Rate (Beats/Min): 55 [place]: Normal P-Wave: Present QRS: Other (RSR' noted V2 suggesting incomplete RBBB) ST-T: Other (No acute changes suggesting ischemia) QT: Normal Comparison: Change From Previous EKG (1st Degree AV block not observed today. RSR' in V2 not present yesterday, T wave V1 inverted today.)
[2017-10-21] MEDS ORDERED: atorvaSTATin 10 MG Tab PO SCH (20:00)
[2017-10-21] MEDS ORDERED: Escitalopram 20 MG Tab PO SCH (20:00)
== END 2017-10-21 13:40 | disposition home or self-care (01) ==
LOC: LL.ED 17:37 → LL.MS 19:40 → UNDOADMOB 19:40 → LL.MS 20:53 → UNDODISOB 10-21 13:40
PROVIDERS: ADMIT Emergency Medicine; ATTEND Emergency Medicine
DX: R10.13 Epigastric pain (principal); I10 Essential (primary) hypertension; K21.9 Gastro-esophageal reflux disease without esophagitis; E83.42 Hypomagnesemia; E87.6 Hypokalemia; E55.9 Vitamin D deficiency, unspecified; E78.00 Pure hypercholesterolemia, unspecified; M19.90 Unspecified osteoarthritis, unspecified site; Z79.82 Long term (current) use of aspirin; Z79.899 Other long term (current) drug therapy; Z88.8 Allergy status to other drugs, medicaments and biological substances; Z88.0 Allergy status to penicillin
CPT/HCPCS: 36000; 36415; 71046; 80048; 80053; 81001; 82550; 82553; 83735; 84484; 85025; 93005; 96365; 96366; 96375; 96376; 99285; A9270-GY; C9113; G0378; J3475; J7050

== ENCOUNTER 2019-03-09 17:54 | Observation (INO) | payer MEDICARE, OTHER ==
[2019-03-09] MEDS ORDERED: Sodium Chloride 0.9% 10 ML Syringe FLUSH PRN (18:26)
[2019-03-09] MEDS ORDERED: Nitroglycerin 0.4 MG Tab.SL SL ONE (19:09)
[2019-03-09] MEDS ORDERED: Diltiazem 120 MG Cap.CD PO ONE (20:10)
--- NOTE | 2019-03-09 20:39 | EDM.PDOC ---
ED HPI GENERAL MEDICAL PROBLEM - General Chief Complaint: General Stated Complaint: elevated b/p, PAGE Time Seen by Provider: 03/09/19 18:15 Source of Information: Reports: Patient History Limitations: Reports: No Limitations - History of Present Illness INITIAL COMMENTS - FREE TEXT/NARRATIVE: Patient is a 78-year-old female well known to myself seen today because of increased blood pressure which she's been having for a while and headaches at this time is seen evaluated Onset: Gradual Duration: Day(s):, Getting Worse Location: Reports: Head Quality: Reports: Ache, Dull Severity: Moderate Improves with: Reports: None Worsens with: Reports: Rest Associated Symptoms: Reports: Headaches, Nausea/Vomiting, Weakness Left Temporal Headache Pain Score (Numeric/FACES): 6 - Related Data Allergies Allergy/AdvReac Type Severity Reaction Status Date / Time albuterol Allergy Vomiting Verified 03/09/19 18:28 [From Proventil HFA] nitrofurantoin Allergy Rash Verified 03/09/19 18:28 macrocrystalline [From Macrobid] Penicillins Allergy Rash Verified 03/09/19 18:28 sulfamethoxazole Allergy Itching Verified 03/09/19 18:28 [From Bactrim] Home Meds: Home Meds Aspirin [Halfprin] 81 mg PO Q2D 06/05/13 [History] Calcium Carbonate/Vitamin D3 [Calcium 500 + Vit D 400] 2 tab PO DAILY@06/05 [History] Metoprolol Succinate [Toprol XL 100mg] 50 mg PO BID 06/05/13 [History] Ranitidine [Zantac] 150 mg PO BID 06/05/13 [History] atorvaSTATin [Lipitor] 20 mg PO BEDTIME 06/05/13 [History] Losartan Potassium [Cozaar] 100 mg PO DAILY@79911/28/16 [History] hydroCHLOROthiazide [Hydrochlorothiazide] 12.5 mg PO DAILY@79911/28/16 [ History] Potassium Chloride [Klor-Con M20] 20 meq PO DAILY #30 tab.er 11/29/16 [Rx] Diltiazem [Cardizem CD] 120 mg PO DAILY@0803/09/19 [History] Past Medical History HEENT History: Reports: Impaired Vision Cardiovascular History: Reports: Heart Murmur, High Cholesterol, Hypertension, Syncope Other Cardiovascular History: vasovagal response Gastrointestinal History: Reports: GERD, Other (See Below) Other Gastrointestinal History: darren s esophagus 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: Other (See Below) Other MEDICAL DEVICE SALES 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 History: cysts removed from ovaries Musculoskeletal History: Reports: Arthritis Neurological History: Reports: Seizure Psychiatric History: Reports: None Endocrine/Metabolic History: Reports: None Hematologic History: Reports: None Immunologic History: Reports: None Oncologic (Cancer) History: Reports: None Dermatologic History: Reports: None - Infectious Disease History Infectious Disease History: Reports: Chicken Pox, Measles, Shingles - Past Surgical History HEENT Surgical History: Reports: Cataract Surgery Musculoskeletal Surgical History: Reports: Knee Replacement, Other (See Below) Social & Family History - Tobacco Use Smoking Status *Q: Never Smoker - Caffeine Use Caffeine Use: Reports: Coffee - Living Situation & Occupation Living situation: Reports: , with Family ED ROS GENERAL - Review of Systems Review Of Systems: See Below Constitutional: Reports: No Symptoms HEENT: Reports: No Symptoms Respiratory: Reports: No Symptoms Cardiovascular: Reports: Lightheadedness Endocrine: Reports: No Symptoms GI/Abdominal: Reports: No Symptoms : Reports: No Symptoms Musculoskeletal: Reports: No Symptoms Skin: Reports: No Symptoms ED EXAM, GENERAL - Physical Exam Exam: See Below Exam Limited By: No Limitations General Appearance: Alert, WD/WN, No Apparent Distress Ears: Normal External Exam, Normal Canal, Hearing Grossly Normal, Normal TMs Nose: Normal Inspection, Normal Mucosa, No Blood Throat/Mouth: Normal Inspection, Normal Lips, Normal Teeth, Normal Gums, Normal Oropharynx, Normal Voice, No Airway Compromise Head: Atraumatic, Normocephalic Neck: Normal Inspection, Supple, Non-Tender, Full Range of Motion Respiratory/Chest: No Respiratory Distress, Lungs Clear, Normal Breath Sounds, No Accessory Muscle Use, Chest Non-Tender Cardiovascular: Bradycardia GI/Abdominal: Normal Bowel Sounds, Soft, Non-Tender, No Organomegaly, No Distention, No Abnormal Bruit, No Mass (Female) Exam: Deferred Rectal (Female) Exam: Deferred Back Exam: Normal Inspection, Full Range of Motion, NT Extremities: Normal Inspection, Normal Range of Motion, Non-Tender, Normal Capillary Refill, No Pedal Edema Neurological: Alert, Oriented, CN II-XII Intact, Normal Cognition, Normal Gait, Normal Reflexes, No Motor/Sensory Deficits Psychiatric: Normal Affect, Normal Mood Skin Exam: Warm, Dry, Intact, Normal Color, No Rash Lymphatic: No Adenopathy Course - Vital Signs Last Recorded V/S: Last Vital Signs Temp 97.7 F 03/09/19 19:39 Pulse 54 L 03/09/19 20:18 Resp 16 03/09/19 20:09 BP 168/58 H 03/09/19 21:39 Pulse Ox 100 03/09/19 20:09 - Orders/Labs/Meds Orders: Active Orders 24 hr Category Date Time Status Cardiac Monitoring [RC] . DIRECTED Care 03/09/19 18:58 Active EKG Documentation Completion [RC] ASDIRECTED Care 03/09/19 18:15 Active Quinapril [Accupril] Med 03/09/19 19:45 Active 10 mg PO DAILY Sodium Chloride 0.9% [Saline Flush] Med 03/09/19 18:26 Active 10 ml FLUSH ASDIRECTED PRN cloNIDine [Catapres] Med 03/09/19 21:15 Active 0.1 mg PO DAILY Saline Lock Insert [OM.PC] Routine Oth 03/09/19 18:26 Ordered Medication Orders Clonidine HCl (Catapres) 0.1 mg PO DAILY [facility] Last Admin: 03/09/19 21:15 Dose: 0.1 mg Quinapril HCl (Accupril) 10 mg PO DAILY [facility] Last Admin: 03/09/19 19:47 Dose: 10 mg Sodium Chloride (Saline Flush) 10 ml FLUSH ASDIRECTED PRN PRN Reason: Keep Vein Open Last Admin: 03/09/19 18:15 Dose: 10 ml Meds: Medications Generic Name Dose Route Start Last Admin Trade Name Freq PRN Reason Stop Dose Admin Clonidine HCl 0.1 mg 03/09/19 21:15 03/09/19 21:15 Catapres PO 0.1 mg DAILY [facility] Administration Quinapril HCl 10 mg 03/09/19 19:45 03/09/19 19:47 Accupril PO 10 mg DAILY [facility] Administration Sodium Chloride 10 ml 03/09/19 18:26 03/09/19 18:15 Saline Flush FLUSH 10 ml ASDIRECTED PRN Administration Keep Vein Open Discontinued Medications Generic Name Dose Route Start Last Admin Trade Name Freq PRN Reason Stop Dose Admin Clonidine HCl 0.1 mg 03/09/19 21:36 03/09/19 21:39 Catapres PO 03/09/19 21:37 0.1 mg ONETIME ONE Administration Diltiazem HCl 120 mg 03/09/19 20:10 03/09/19 20:18 Cardizem Cd PO 03/09/19 20:11 120 mg ONETIME ONE Administration Nitroglycerin 0.4 mg 03/09/19 19:09 03/09/19 19:13 Nitrostat SL 03/09/19 19:10 0.4 mg ONETIME ONE Administration Departure - Departure Time of Disposition: 22:44 Disposition: Refer to Observation Clinical Impression: Generalized headaches Hypertension Qualifiers: Hypertension type: essential hypertension Qualified Code(s): I10 - Essential ( primary) hypertension - Discharge Information *PRESCRIPTION DRUG MONITORING PROGRAM REVIEWED*: No *COPY OF PRESCRIPTION DRUG MONITORING REPORT IN PATIENT J LUIS: No Referrals: Josemanuel Enriquez MD [Primary Care Provider] - Forms: ED Department Discharge - Problem List & Annotations (1) Hypertension SNOMED Code(s): 44800012 Code(s): I10 - ESSENTIAL (PRIMARY) HYPERTENSION Status: Acute Current Visit: Yes Annotation/Comment:: Patient multiple medication still having blood pressures in the 180s over 190 systolic was given up to 3 doses of clonidine to control blood pressure at this time I will admit her for observation and titration of a my medications - Problem List Review Problem List Initiated/Reviewed/Updated: Yes - My Orders Last 24 Hours: My Active Orders 03/09/19 18:15 EKG Documentation Completion [RC] ASDIRECTED 03/09/19 18:26 Sodium Chloride 0.9% [Saline Flush] 10 ml FLUSH ASDIRECTED PRN Saline Lock Insert [OM.PC] Routine 03/09/19 18:58 Cardiac Monitoring [RC] . DIRECTED 03/09/19 19:45 Quinapril [Accupril] 10 mg PO DAILY 03/09/19 21:15 cloNIDine [Catapres] 0.1 mg PO DAILY - Assessment/Plan Admission H&P: Please use this note as an admission H&P Last 24 Hours: My Active Orders 03/09/19 18:15 EKG Documentation Completion [RC] ASDIRECTED 03/09/19 18:26 Sodium Chloride 0.9% [Saline Flush] 10 ml FLUSH ASDIRECTED PRN Saline Lock Insert [OM.PC] Routine 03/09/19 18:58 Cardiac Monitoring [RC] . DIRECTED 03/09/19 19:45 Quinapril [Accupril] 10 mg PO DAILY 03/09/19 21:15 cloNIDine [Catapres] 0.1 mg PO DAILY Plan: Patient will be admitted for observation and titration of medication
[2019-03-09] MEDS: cloNIDine 0.1 MG Tab PO SCH (21:15)
[2019-03-09] MEDS ORDERED: cloNIDine 0.1 MG Tab PO ONE (21:36)
[2019-03-09] MEDS ORDERED: Acetaminophen 325 MG Tab PO PRN (22:45)
[2019-03-09] MEDS ORDERED: Aspirin 81 MG Tab.EC PO SCH (23:00)
[2019-03-10] MEDS ORDERED: Non-Formulary Medication 1 Each (Losartan Potassium [Cozaar] 100 MG) PO SCH (08:00)
[2019-03-10] MEDS: Diltiazem 120 MG Cap.CD PO SCH (18:14)
[2019-03-10] MEDS: Hydrochlorothiazide 25 MG Tab PO SCH (18:15)
[2019-03-10] MEDS: cloNIDine 0.1 MG Tab PO SCH (18:15)
[2019-03-10] MEDS: Non-Formulary Medication 1 Each (Metoprolol Succinate [Toprol Xl 100mg] 50 MG) PO SCH ×2 (18:15→19:42)
[2019-03-10] MEDS: Non-Formulary Medication 1 Each (Ranitidine [Zantac] 150 MG) PO SCH ×2 (18:16→19:52)
[2019-03-10] MEDS ORDERED: Losartan 50 MG Tab PO SCH (19:30)
[2019-03-10] MEDS ORDERED: Metoprolol Succinate 50 MG Tab.ER PO SCH ×2 (19:31→19:45)
[2019-03-10] MEDS ORDERED: Calcium Carbonate/Vitamin D3 1500 MG-400 Units Tab PO SCH (20:00)
[2019-03-10] MEDS ORDERED: atorvaSTATin 10 MG Tab PO SCH (20:00)
--- NOTE | 2019-03-10 22:56 | PCM.PN ---
- General Info Date of Service: 03/10/19 Admission Dx/Problem (Free Text): Hypertension with bradycardia - Review of Systems General: Reports: No Symptoms HEENT: Reports: Other (Patient has improved sinus bradycardia resolved) Pulmonary: Reports: No Symptoms Cardiovascular: Reports: No Symptoms Gastrointestinal: Reports: No Symptoms Genitourinary: Reports: No Symptoms Musculoskeletal: Reports: No Symptoms Skin: Reports: No Symptoms Neurological: Reports: No Symptoms Psychiatric: Reports: No Symptoms - Patient Data Vitals - Most Recent: Last Vital Signs Temp 98.9 F 03/10/19 19:13 Pulse 60 03/10/19 19:51 Resp 18 03/10/19 19:13 BP 141/55 H 03/10/19 19:51 Pulse Ox 96 03/10/19 19:13 Weight - Most Recent: 200 lb I&O - Last 24 Hours: Intake & Output 03/10/19 03/10/19 03/10/19 06:59 14:59 22:59 Intake Total 1080 Balance 1080 Lab Results Last 24 Hours: Laboratory Results - last 24 hr 03/10/19 03/10/19 Range/Units 07:15 07:15 WBC 4.9 (4.0-10.2) K/uL RBC 3.75 L (3.77-5.09) M/uL Hgb 12.6 D (11.7-15.5) g/dL Hct 36.5 (34.0-46.0) % MCV 97.3 (84.0-98.0) fL MCH 33.6 H (28.2-33.3) pg MCHC 34.5 (31.7-36.0) g/dL RDW 12.2 (11.2-14.1) % Plt Count 156 (150-350) K/uL Neut % (Auto) 35.2 L (45.0-80.0) % Lymph % (Auto) 47.2 (10.0-50.0) % [place] % (Auto) 11.5 (2.0-14.0) % Eos % (Auto) 5.3 H (0.0-5.0) % Baso % (Auto) 0.8 (0.0-2.0) % Neut # (Auto) 1.71 (1.40-7.00) K/uL Lymph # (Auto) 2.30 (0.50-3.50) K/uL [place] # (Auto) 0.56 (0.00-1.00) K/uL Eos # (Auto) 0.26 (0.00-0.50) K/uL Baso # (Auto) 0.04 (0.00-0.20) K/uL Sodium 142 (136-145) mmol/L Potassium 3.6 (3.5-5.1) mmol/L Chloride 106 (98-107) mmol/L Carbon Dioxide 30.4 (21.0-32.0) mmol/L BUN 18 (7-18) mg/dL Creatinine 1.05 (0.51-1.17) mg/dL Est Cr Clr Drug Dosing 33.32 mL/min Estimated GFR (MDRD) 51 mL/min Glucose 106 (74-106) mg/dL Calcium 9.0 D (8.5-10.1) mg/dL Total Bilirubin 0.6 (0.2-1.0) mg/dL AST 15 (15-37) U/L ALT 27 (12-78) U/L Alkaline Phosphatase 59 (46-116) IU/L Total Protein 6.0 L (6.4-8.2) g/dL Albumin 3.1 L (3.4-5.0) g/dL Med Orders - Current: Current Medications Acetaminophen (Tylenol) 650 mg PO Q4H PRN PRN Reason: analgesia/fever Aspirin (Halfprin) 81 mg PO Q2D [facility] Last Admin: 03/10/19 00:46 Dose: Not Given Atorvastatin Calcium (Lipitor) 20 mg PO BEDTIME [facility] Last Admin: 03/10/19 19:50 Dose: 20 mg Calcium Carbonate (Caltrate 600+D 1500 Mg-400 Units) 2 tab PO DAILY@2000 [facility] Last Admin: 03/10/19 19:51 Dose: 2 tab Clonidine HCl (Catapres) 0.1 mg PO DAILY [facility] Last Admin: 03/10/19 18:15 Dose: Not Given Diltiazem HCl (Cardizem Cd) 120 mg PO DAILY@0800 [facility] Last Admin: 03/10/19 18:14 Dose: Not Given Famotidine (Pepcid) 20 mg PO DAILY [facility] Hydrochlorothiazide (Hydrochlorothiazide) 25 mg PO DAILY [facility] Last Admin: 09/15/19 18:15 Dose: Not Given Losartan Potassium (Cozaar) 100 mg PO DAILY@0800 [facility] Metoprolol Succinate (Toprol Xl) 50 mg PO DAILY [facility] Sodium Chloride (Saline Flush) 10 ml FLUSH ASDIRECTED PRN PRN Reason: Keep Vein Open Last Admin: 03/09/19 18:15 Dose: 10 ml Discontinued Medications Clonidine HCl (Catapres) 0.1 mg PO ONETIME ONE Stop: 03/09/19 21:37 Last Admin: 03/09/19 21:39 Dose: 0.1 mg Diltiazem HCl (Cardizem Cd) 120 mg PO ONETIME ONE Stop: 03/09/19 20:11 Last Admin: 03/09/19 20:18 Dose: 120 mg Metoprolol Succinate (Toprol Xl) 50 mg PO BID [facility] Metoprolol Succinate (Toprol Xl) 50 mg PO BID [facility] Last Admin: 03/10/19 19:51 Dose: 50 mg Nitroglycerin (Nitrostat) 0.4 mg SL ONETIME ONE Stop: 03/09/19 19:10 Last Admin: 03/09/19 19:13 Dose: 0.4 mg Non-Formulary Medication (Losartan Potassium [Cozaar]) 100 mg PO DAILY@0800 [facility] Last Admin: 03/10/19 18:15 Dose: Not Given Non-Formulary Medication (Metoprolol Succinate [Toprol Xl 100mg]) 50 mg PO BID [facility] Last Admin: 03/10/19 19:42 Dose: Not Given Non-Formulary Medication (Ranitidine [Zantac]) 150 mg PO BID [facility] Last Admin: 03/10/19 19:52 Dose: Not Given Quinapril HCl (Accupril) 10 mg PO DAILY [facility] Last Admin: 03/10/19 18:14 Dose: Not Given - Exam General: Alert, Oriented, Cooperative, No Acute Distress HEENT: Pupils Equal, Pupils Reactive, EOMI, Mucous Membr. Moist/[place] Neck: Supple Lungs: Clear to Auscultation Cardiovascular: Regular Rate, Regular Rhythm, No Murmurs GI/Abdominal Exam: Normal Bowel Sounds, Soft, Non-Tender, No Organomegaly, No Distention, No Abnormal Bruit, No Mass, Pelvis Stable (Female) Exam: Deferred Back Exam: Normal Inspection, Full Range of Motion Extremities: Normal Inspection, Normal Range of Motion, Non-Tender, No Pedal Edema, Normal Capillary Refill Skin: Warm, Dry, Intact Wound/Incisions: Healing Well Neurological: No New Focal Deficit Psy/Mental Status: Alert, Normal Affect, Normal Mood - Problem List & Annotations (1) Hypertension SNOMED Code(s): 90381228 Code(s): I10 - ESSENTIAL (PRIMARY) HYPERTENSION Status: Acute Current Visit: Yes Qualifiers: Hypertension type: essential hypertension Qualified Code(s): I10 - Essential (primary) hypertension Annotation/Comment:: Patient's medicines have been modified overall doing better heart rate in the 60s to 70s blood pressure 140/64 doing great decrease metoprolol to 50 a day decreased Cardizem with increased hydrochlorothiazide to 25 mg in the morning - Problem List Review Problem List Initiated/Reviewed/Updated: Yes - My Orders Last 24 Hours: My Active Orders 03/09/19 22:45 Patient Status [ADT] Routine May Shower [RC] ASDIRECTED Vital Signs [RC] Q4HR Acetaminophen [Tylenol] 650 mg PO Q4H PRN DVT/VTE Prophylaxis Reflex [OM.PC] Routine 03/09/19 22:50 Antiembolic Devices [RC] 08,20 VTE/DVT Education [RC] DAILY 03/09/19 23:00 Aspirin [Halfprin] 81 mg PO Q2D 03/10/19 08:00 Diltiazem [Cardizem CD] 120 mg PO DAILY@0800 hydroCHLOROthiazide 25 mg PO DAILY 03/10/19 18:16 Communication Order [RC] STAT 03/10/19 19:30 Losartan [Cozaar] 100 mg PO DAILY@0800 03/10/19 20:00 Calcium Carbonate/Vitamin D3 [Caltrate 600+D 1500 MG-400 Units] 2 tab PO DAILY @1999 atorvaSTATin [Lipitor] 20 mg PO BEDTIME 03/10/19 Breakfast 2 Gram Sodium Diet [DIET] 03/11/19 08:00 Famotidine [Pepcid] 20 mg PO DAILY Metoprolol Succinate [Toprol XL] 50 mg PO DAILY - Plan Plan:: Patient's medicines have been modified overall doing better heart rate in the 60s to 70s blood pressure 140/64 doing great decrease metoprolol to 50 a day decreased Cardizem with increased hydrochlorothiazide to 25 mg in the morning
[2019-03-11] MEDS ORDERED: Metoprolol Succinate 50 MG Tab.ER PO SCH (08:00)
[2019-03-11] MEDS ORDERED: Famotidine 20 MG Tab PO SCH (08:00)
[2019-03-11] MEDS: cloNIDine 0.1 MG Tab PO SCH (08:45)
[2019-03-11] MEDS: Diltiazem 120 MG Cap.CD PO SCH (08:45)
[2019-03-11] MEDS: Hydrochlorothiazide 25 MG Tab PO SCH (08:59)
[2019-03-11 11:24] VITALS: BP 152/96; PULSE 54
--- NOTE | 2019-03-11 14:36 | PCM.DCSUM1 ---
Discharge Summary - Hospital Course Free Text/Narrative:: Patient seen today feeling better vision has improved blood pressure seems to be controlled at this time patient will be sent home I will follow her in 3 days Diagnosis: Stroke: No - Discharge Data Discharge Date: 03/11/19 Discharge Disposition: Home, Self-Care 01 Condition: Good - Referral to Home Health Date of Face to Face Encounter: 03/11/19 Primary Care Physician: Josemanuel Enriquez MD - Discharge Diagnosis/Problem(s) (1) Hypertension SNOMED Code(s): 16811786 ICD Code: I10 - ESSENTIAL (PRIMARY) HYPERTENSION Status: Acute Current Visit: Yes Problem Details: Patient's medications have been modified overall doing better heart rate in the 60s to 70s blood pressure 140/64 doing great decrease metoprolol to 50 a day decreased Cardizem with increased hydrochlorothiazide to 25 mg in the morning Qualifiers: Hypertension type: essential hypertension Qualified Code(s): I10 - Essential (primary) hypertension - Patient Instructions Diet: Heart Healthy Diet, Low Sodium, Drink 8-10+ Glasses/Day Driving: Do Not Drive Showering/Bathing: May Shower - Discharge Plan *PRESCRIPTION DRUG MONITORING PROGRAM REVIEWED*: No *COPY OF PRESCRIPTION DRUG MONITORING REPORT IN PATIENT J LUIS: No Home Medications: Home Meds Aspirin [Halfprin] 81 mg PO Q2D 06/05/13 [History] Calcium Carbonate/Vitamin D3 [Calcium 500 + Vit D 400] 2 tab PO DAILY@06/05 [History] Metoprolol Succinate [Toprol XL 100mg] 50 mg PO BID 06/05/13 [History] Ranitidine [Zantac] 150 mg PO BID 06/05/13 [History] atorvaSTATin [Lipitor] 20 mg PO BEDTIME 06/05/13 [History] Losartan Potassium [Cozaar] 100 mg PO DAILY@79911/28/16 [History] hydroCHLOROthiazide [Hydrochlorothiazide] 12.5 mg PO DAILY@79911/28/16 [ History] Potassium Chloride [Klor-Con M20] 20 meq PO DAILY #30 tab.er 11/29/16 [Rx] Diltiazem [Cardizem CD] 120 mg PO DAILY@79903/09/19 [History] Oxygen Therapy Mode: Room Air Forms: ED Department Discharge Referrals: Josemanuel Enriquez MD [Primary Care Provider] - - Discharge Summary/Plan Comment DC Time >30 min.: No Discharge Summary/Plan Comment: Patient overall doing better I will adjust medications before leaving follow her up in 3 or 4 days - General Info Functional Status: Reports: Tolerating Diet, Ambulating - Review of Systems General: Reports: No Symptoms HEENT: Reports: No Symptoms Pulmonary: Reports: No Symptoms Cardiovascular: Reports: No Symptoms Gastrointestinal: Reports: No Symptoms Genitourinary: Reports: No Symptoms Musculoskeletal: Reports: No Symptoms Skin: Reports: No Symptoms Neurological: Reports: No Symptoms Psychiatric: Reports: No Symptoms - Patient Data Vitals - Most Recent: Last Vital Signs Temp 98.0 F 03/11/19 11:22 Pulse 54 L 03/11/19 11:22 Resp 20 03/11/19 11:22 BP 152/96 H 03/11/19 11:22 Pulse Ox 97 03/11/19 11:22 Weight - Most Recent: 199 lb 15.983 oz I&O - Last 24 hours: Intake & Output 03/10/19 03/11/19 03/11/19 22:59 06:59 14:59 Intake Total 820 Balance 820 Med Orders - Current: Current Medications Acetaminophen (Tylenol) 650 mg PO Q4H PRN PRN Reason: analgesia/fever Last Admin: 03/11/19 00:20 Dose: 650 mg Aspirin (Halfprin) 81 mg PO Q2D [facility] Last Admin: 03/10/19 00:46 Dose: Not Given Atorvastatin Calcium (Lipitor) 20 mg PO BEDTIME [facility] Last Admin: 03/10/19 19:50 Dose: 20 mg Calcium Carbonate (Caltrate 600+D 1500 Mg-400 Units) 2 tab PO DAILY@1999 [facility] Last Admin: 03/10/19 19:51 Dose: 2 tab Clonidine HCl (Catapres) 0.1 mg PO DAILY [facility] Last Admin: 03/11/19 08:45 Dose: Not Given Diltiazem HCl (Cardizem Cd) 120 mg PO DAILY@0800 [facility] Last Admin: 03/11/19 08:45 Dose: Not Given Famotidine (Pepcid) 20 mg PO DAILY [facility] Last Admin: 03/11/19 08:59 Dose: 20 mg Hydrochlorothiazide (Hydrochlorothiazide) 25 mg PO DAILY [facility] Last Admin: 03/11/19 08:59 Dose: 25 mg Losartan Potassium (Cozaar) 100 mg PO DAILY@0800 [facility] Last Admin: 03/11/19 08:59 Dose: 100 mg Metoprolol Succinate (Toprol Xl) 50 mg PO DAILY [facility] Last Admin: 03/11/19 08:59 Dose: 50 mg Sodium Chloride (Saline Flush) 10 ml FLUSH ASDIRECTED PRN PRN Reason: Keep Vein Open Last Admin: 03/09/19 18:15 Dose: 10 ml Discontinued Medications Clonidine HCl (Catapres) 0.1 mg PO ONETIME ONE Stop: 03/09/19 21:37 Last Admin: 03/09/19 21:39 Dose: 0.1 mg Diltiazem HCl (Cardizem Cd) 120 mg PO ONETIME ONE Stop: 03/09/19 20:11 Last Admin: 03/09/19 20:18 Dose: 120 mg Metoprolol Succinate (Toprol Xl) 50 mg PO BID [facility] Metoprolol Succinate (Toprol Xl) 50 mg PO BID [facility] Last Admin: 03/10/19 19:51 Dose: 50 mg Nitroglycerin (Nitrostat) 0.4 mg SL ONETIME ONE Stop: 03/09/19 19:10 Last Admin: 03/09/19 19:13 Dose: 0.4 mg Non-Formulary Medication (Losartan Potassium [Cozaar]) 100 mg PO DAILY@0800 [facility] Last Admin: 03/10/19 18:15 Dose: Not Given Non-Formulary Medication (Metoprolol Succinate [Toprol Xl 100mg]) 50 mg PO BID [facility] Last Admin: 03/10/19 19:42 Dose: Not Given Non-Formulary Medication (Ranitidine [Zantac]) 150 mg PO BID [facility] Last Admin: 03/10/19 19:52 Dose: Not Given Quinapril HCl (Accupril) 10 mg PO DAILY [facility] Last Admin: 03/10/19 18:14 Dose: Not Given - Exam General: Reports: Alert, Oriented HEENT: Reports: Pupils Equal, Pupils Reactive, EOMI, Mucous Membr. Moist/[place] Neck: Reports: Supple Lungs: Reports: Clear to Auscultation, Normal Respiratory Effort Cardiovascular: Reports: Regular Rate, Regular Rhythm, Other (Hypertension) GI/Abdominal Exam: Normal Bowel Sounds, Soft, Non-Tender, No Organomegaly, No Distention, No Abnormal Bruit, No Mass, Pelvis Stable (Female) Exam: Deferred Rectal (Female) Exam: Deferred Back Exam: Reports: Normal Inspection, Full Range of Motion Extremities: Normal Inspection, Normal Range of Motion, Non-Tender, No Pedal Edema, Normal Capillary Refill Skin: Reports: Warm, Dry, Intact Neurological: Reports: No New Focal Deficit Psy/Mental Status: Reports: Alert, Normal Affect, Normal Mood
== END 2019-03-11 15:05 | disposition home or self-care (01) ==
LOC: LL.ED 17:54 → UNDOADMOB 22:45 → LL.MS 22:45
PROVIDERS: ADMIT Family Medicine; ATTEND Family Medicine
DX: I10 Essential (primary) hypertension (principal); E78.00 Pure hypercholesterolemia, unspecified; K21.9 Gastro-esophageal reflux disease without esophagitis; M19.90 Unspecified osteoarthritis, unspecified site; Z79.82 Long term (current) use of aspirin; Z79.899 Other long term (current) drug therapy; Z88.8 Allergy status to other drugs, medicaments and biological substances; Z88.1 Allergy status to other antibiotic agents; Z88.0 Allergy status to penicillin
CPT/HCPCS: 36000; 36415; 80053; 85025; 93005; 99217; 99219; 99225; 99284-25; A9270-GY; G0378

== ENCOUNTER 2019-03-14 18:45 | Emergency (ER) | payer MEDICARE, OTHER ==
[2019-03-14] MEDS: Nitroglycerin 0.4 MG Tab.SL SL PRN (19:22)
[2019-03-14] MEDS: NIFEdipine 30 MG Tab.ER PO ONE ×2 (21:38→22:50)
--- NOTE | 2019-03-15 00:24 | EDM.PDOC ---
ED HPI GENERAL MEDICAL PROBLEM - General Chief Complaint: Cardiovascular Problem Stated Complaint: htn Time Seen by Provider: 03/14/19 19:00 Source of Information: Reports: Patient History Limitations: Reports: No Limitations - History of Present Illness INITIAL COMMENTS - FREE TEXT/NARRATIVE: Patient is a 78-year-old is well known to myself I have seen her multiple times secondary to hypertension I had titrated her medications recently but still her blood pressure is elevated she had called myself and she was having a systolic pressure of 200/105 at home so I instructed her to come in to the ER Onset: Sudden Duration: Hour(s):, Getting Worse Location: Reports: Head Quality: Reports: Ache, Pressure Severity: Moderate Improves with: Reports: None Worsens with: Reports: Rest Context: Reports: Activity Associated Symptoms: Reports: No Other Symptoms Forehead Pain Score (Numeric/FACES): 5 - Related Data Allergies Allergy/AdvReac Type Severity Reaction Status Date / Time albuterol Allergy Vomiting Verified 03/14/19 19:52 [From Proventil HFA] nitrofurantoin Allergy Rash Verified 03/14/19 19:52 macrocrystalline [From Macrobid] Penicillins Allergy Rash Verified 03/14/19 19:52 sulfamethoxazole Allergy Itching Verified 03/14/19 19:52 [From Bactrim] Home Meds: Home Meds Aspirin [Halfprin] 81 mg PO Q2D 06/05/13 [History] Calcium Carbonate/Vitamin D3 [Calcium 500 + Vit D 400] 2 tab PO DAILY@06/05 [History] Ranitidine [Zantac] 150 mg PO BID 06/05/13 [History] atorvaSTATin [Lipitor] 20 mg PO BEDTIME 06/05/13 [History] Losartan Potassium [Cozaar] 100 mg PO DAILY@0800 11/28/16 [History] Metoprolol Succinate [Toprol XL 50mg] 50 mg PO DAILY #30 tab.er 03/11/19 [Rx] cloNIDine [Catapres] 0.1 mg PO ASDIRECTED PRN #30 tablet 03/11/19 [Rx] hydroCHLOROthiazide [Hydrochlorothiazide] 25 mg PO DAILY #30 tablet 03/11/19 [Rx ] NIFEdipine [Nifedipine ER] 60 mg PO DAILY 30 Days #30 tablet.er 03/15/19 [Rx] Past Medical History HEENT History: Reports: Impaired Vision Cardiovascular History: Reports: Heart Murmur, High Cholesterol, Hypertension, Syncope Other Cardiovascular History: vasovagal response Gastrointestinal History: Reports: GERD, Other (See Below) Other Gastrointestinal History: darren s esophagus ESTATE AGENT History: Reports: Other (See Below) Other ESTATE AGENT History: cysts removed from ovaries Musculoskeletal History: Reports: Arthritis Neurological History: Reports: Seizure Psychiatric History: Reports: None Endocrine/Metabolic History: Reports: None Hematologic History: Reports: None Immunologic History: Reports: None Oncologic (Cancer) History: Reports: None Dermatologic History: Reports: None - Infectious Disease History Infectious Disease History: Reports: Chicken Pox, Measles, Shingles - Past Surgical History HEENT Surgical History: Reports: Cataract Surgery Musculoskeletal Surgical History: Reports: Knee Replacement, Other (See Below) Social & Family History - Tobacco Use Smoking Status *Q: Never Smoker - Caffeine Use Caffeine Use: Reports: None - Recreational Drug Use Recreational Drug Use: No - Living Situation & Occupation Living situation: Reports: , with Family ED ROS GENERAL - Review of Systems Review Of Systems: See Below Constitutional: Reports: No Symptoms HEENT: Reports: No Symptoms Respiratory: Reports: No Symptoms Cardiovascular: Reports: Blood Pressure Problem Endocrine: Reports: No Symptoms GI/Abdominal: Reports: No Symptoms : Reports: No Symptoms Musculoskeletal: Reports: No Symptoms Skin: Reports: No Symptoms Neurological: Reports: Headache Psychiatric: Reports: No Symptoms Hematologic/Lymphatic: Reports: No Symptoms ED EXAM, GENERAL - Physical Exam Exam: See Below Exam Limited By: No Limitations General Appearance: Alert, WD/WN, No Apparent Distress Ears: Normal External Exam, Normal Canal, Hearing Grossly Normal, Normal TMs Ear Exam: Bilateral Ear: Auricle Normal, Canal Normal, TM normal Nose: Normal Inspection, Normal Mucosa, No Blood Throat/Mouth: Normal Inspection, Normal Lips, Normal Teeth, Normal Gums, Normal Oropharynx, Normal Voice, No Airway Compromise Head: Atraumatic, Normocephalic, Other (Headaches) Neck: Normal Inspection, Supple, Non-Tender, Full Range of Motion Respiratory/Chest: No Respiratory Distress, Lungs Clear, Normal Breath Sounds, No Accessory Muscle Use, Chest Non-Tender Cardiovascular: Normal Peripheral Pulses, Regular Rate, Rhythm, No Edema, No Gallop, No JVD, No Murmur, No Rub GI/Abdominal: Normal Bowel Sounds (Female) Exam: Deferred Rectal (Female) Exam: Deferred Back Exam: Normal Inspection, Full Range of Motion, NT Extremities: Normal Inspection, Normal Range of Motion, Non-Tender, Normal Capillary Refill, No Pedal Edema Neurological: Alert, Oriented, CN II-XII Intact, Normal Cognition, Normal Gait, Normal Reflexes, No Motor/Sensory Deficits Psychiatric: Normal Affect, Normal Mood Skin Exam: Warm, Dry, Intact, Normal Color, No Rash Lymphatic: No Adenopathy Course - Vital Signs Last Recorded V/S: Last Vital Signs Temp 98.7 F 03/14/19 18:48 Pulse 58 L 03/14/19 20:00 Resp 15 03/14/19 20:00 BP 159/58 H 03/14/19 22:50 Pulse Ox 95 03/14/19 20:00 - Orders/Labs/Meds Orders: Active Orders 24 hr Category Date Time Status Nitroglycerin [Nitrostat] Med 03/14/19 19:12 Active 0.4 mg SL Q5M PRN Medication Orders Nitroglycerin (Nitrostat) 0.4 mg SL Q5M PRN PRN Reason: Chest Pain Last Admin: 03/14/19 19:22 Dose: 0.4 mg Labs: Laboratory Tests 03/14/19 03/14/19 Range/Units 19:15 19:15 WBC 6.9 (4.0-10.2) K/uL RBC 3.85 (3.77-5.09) M/uL Hgb 12.9 (11.7-15.5) g/dL Hct 36.5 (34.0-46.0) % MCV 94.8 (84.0-98.0) fL MCH 33.5 H (28.2-33.3) pg MCHC 35.3 (31.7-36.0) g/dL RDW 12.0 (11.2-14.1) % Plt Count 170 (150-350) K/uL Neut % (Auto) 36.8 L (45.0-80.0) % Lymph % (Auto) 45.9 (10.0-50.0) % [place] % (Auto) 12.2 (2.0-14.0) % Eos % (Auto) 4.5 (0.0-5.0) % Baso % (Auto) 0.6 (0.0-2.0) % Neut # (Auto) 2.53 (1.40-7.00) K/uL Lymph # (Auto) 3.15 (0.50-3.50) K/uL [place] # (Auto) 0.84 (0.00-1.00) K/uL Eos # (Auto) 0.31 (0.00-0.50) K/uL Baso # (Auto) 0.04 (0.00-0.20) K/uL Sodium 135 L (136-145) mmol/L Potassium 3.3 L (3.5-5.1) mmol/L Chloride 96 L (98-107) mmol/L Carbon Dioxide 27.4 (21.0-32.0) mmol/L BUN 24 H (7-18) mg/dL Creatinine 1.13 (0.51-1.17) mg/dL Est Cr Clr Drug Dosing 29.47 mL/min Estimated GFR (MDRD) 47 mL/min Glucose 103 (74-106) mg/dL Calcium 9.7 (8.5-10.1) mg/dL Meds: Medications Generic Name Dose Route Start Last Admin Trade Name Freq PRN Reason Stop Dose Admin Nitroglycerin 0.4 mg 03/14/19 19:12 03/14/19 19:22 Nitrostat SL 0.4 mg Q5M PRN Administration Chest Pain Discontinued Medications Generic Name Dose Route Start Last Admin Trade Name Freq PRN Reason Stop Dose Admin Nifedipine 30 mg 03/14/19 21:27 03/14/19 21:38 Procardia Xl PO 03/14/19 21:28 30 mg ONETIME ONE Administration Nifedipine 30 mg 03/14/19 22:42 03/14/19 22:50 Procardia Xl PO 03/14/19 22:43 30 mg ONETIME ONE Administration Departure - Departure Time of Disposition: 00:25 Disposition: Home, Self-Care 01 Condition: Good Clinical Impression: Hypertensive heart disease Qualifiers: Heart failure presence: without heart failure Qualified Code(s): I11.9 - Hypertensive heart disease without heart failure Prescriptions: NIFEdipine [Nifedipine ER] 60 mg PO DAILY 30 Days #30 tablet.er Referrals: Josemanuel Enriquez MD [Primary Care Provider] - Care Plan Goals: Patient will be sent home with nifedipine ER 60 mg 1 tablet daily at at bedtime for control of blood pressure - My Orders Last 24 Hours: My Active Orders 03/14/19 19:12 Nitroglycerin [Nitrostat] 0.4 mg SL Q5M PRN - Assessment/Plan Last 24 Hours: My Active Orders 03/14/19 19:12 Nitroglycerin [Nitrostat] 0.4 mg SL Q5M PRN
[2019-03-15 00:50] VITALS: BP 150/62; PULSE 59
== END 2019-03-15 00:30 | disposition home or self-care (01) ==
LOC: LL.ED 18:45
DX: I11.9 Hypertensive heart disease without heart failure (principal); E78.00 Pure hypercholesterolemia, unspecified; Z88.8 Allergy status to other drugs, medicaments and biological substances; Z88.0 Allergy status to penicillin; Z88.2 Allergy status to sulfonamides; Z79.82 Long term (current) use of aspirin; Z79.899 Other long term (current) drug therapy; Z88.1 Allergy status to other antibiotic agents
CPT/HCPCS: 36415; 80048; 85025; 99283; A9270-GY

== ENCOUNTER 2019-03-31 09:13 | Emergency (ER) | payer MEDICARE, OTHER ==
--- NOTE | 2019-03-31 10:35 | EDM.PDOC ---
ED HPI GENERAL MEDICAL PROBLEM - General Chief Complaint: General Stated Complaint: heart racing Time Seen by Provider: 03/31/19 09:40 Source of Information: Reports: Patient History Limitations: Reports: No Limitations - History of Present Illness INITIAL COMMENTS - FREE TEXT/NARRATIVE: Patient is a 78-year-old female who looks younger than her stated age well known to myself presents with cough generalized weakness tachycardia between 104 and 120 we have changed her blood pressure medications recently and at this time we stopped the diltiazem we will go ahead and restart diltiazem at 120 per day plus we will give her next dose of H CT Z and see her on Monday Onset: Today Duration: Hour(s):, Constant Location: Reports: Chest Quality: Reports: Ache Severity: Mild Worsens with: Reports: Medication Associated Symptoms: Reports: No Other Symptoms Treatments 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: 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: Acetaminophen Generalized Pain Score (Numeric/FACES): 4 - Related Data Allergies Allergy/AdvReac Type Severity Reaction Status Date / Time albuterol Allergy Vomiting Verified 03/14/19 19:52 [From Proventil HFA] nitrofurantoin Allergy Rash Verified 03/14/19 19:52 macrocrystalline [From Macrobid] Penicillins Allergy Rash Verified 03/14/19 19:52 sulfamethoxazole Allergy Itching Verified 03/14/19 19:52 [From Bactrim] Home Meds: Home Meds Aspirin [Halfprin] 81 mg PO Q2D 06/05/13 [History] Calcium Carbonate/Vitamin D3 [Calcium 500 + Vit D 400] 2 tab PO DAILY@06/05 [History] Ranitidine [Zantac] 150 mg PO BID 06/05/13 [History] atorvaSTATin [Lipitor] 20 mg PO BEDTIME 06/05/13 [History] Losartan Potassium [Cozaar] 100 mg PO DAILY@0800 11/28/16 [History] cloNIDine [Catapres] 0.1 mg PO ASDIRECTED PRN #30 tablet 03/11/19 [Rx] Metoprolol Succinate [Toprol XL 50mg] 50 mg PO DAILY@03/31/19 [History] NIFEdipine [Nifedipine ER] 60 mg PO DAILY@03/31/19 [History] hydroCHLOROthiazide [Hydrochlorothiazide] 25 mg PO DAILY@03/31/19 [History] Past Medical History HEENT History: Reports: Impaired Vision Cardiovascular History: Reports: Heart Murmur, High Cholesterol, Hypertension, Syncope Other Cardiovascular History: vasovagal response Gastrointestinal History: Reports: GERD, Other (See Below) Other Gastrointestinal History: darren s esophagus GROCERY CLERK SELLING History: Reports: Other (See Below) Other GROCERY CLERK SELLING History: cysts removed from ovaries Musculoskeletal History: Reports: Arthritis Neurological History: Reports: Seizure Psychiatric History: Reports: None Endocrine/Metabolic History: Reports: None Hematologic History: Reports: None Immunologic History: Reports: None Oncologic (Cancer) History: Reports: None Dermatologic History: Reports: None - Infectious Disease History Infectious Disease History: Reports: Chicken Pox, Measles, Shingles - Past Surgical History HEENT Surgical History: Reports: Cataract Surgery Musculoskeletal Surgical History: Reports: Knee Replacement, Other (See Below) Social & Family History - Tobacco Use Smoking Status *Q: Never Smoker - Caffeine Use Caffeine Use: Reports: None - Living Situation & Occupation Living situation: Reports: , with Family ED ROS GENERAL - Review of Systems Review Of Systems: See Below Constitutional: Reports: No Symptoms HEENT: Reports: No Symptoms Respiratory: Reports: Cough Cardiovascular: Reports: Blood Pressure Problem Endocrine: Reports: No Symptoms GI/Abdominal: Reports: No Symptoms : Reports: No Symptoms Musculoskeletal: Reports: No Symptoms Skin: Reports: No Symptoms Neurological: Reports: No Symptoms Psychiatric: Reports: No Symptoms Hematologic/Lymphatic: Reports: No Symptoms ED EXAM, GENERAL - Physical Exam Exam: See Below Exam Limited By: No Limitations General Appearance: Alert, WD/WN, No Apparent Distress Ears: Normal External Exam, Normal Canal, Hearing Grossly Normal, Normal TMs Ear Exam: Bilateral Ear: Auricle Normal, Canal Normal, TM normal Nose: Normal Inspection, Normal Mucosa, No Blood Throat/Mouth: Normal Inspection, Normal Lips, Normal Teeth, Normal Gums, Normal Oropharynx, Normal Voice, No Airway Compromise Head: Atraumatic, Normocephalic Neck: Normal Inspection, Supple, Non-Tender, Full Range of Motion Respiratory/Chest: Rales Cardiovascular: Normal Peripheral Pulses, Regular Rate, Rhythm, No Edema, No Gallop, No JVD, No Murmur, No Rub GI/Abdominal: Normal Bowel Sounds, Soft, Non-Tender, No Organomegaly, No Distention, No Abnormal Bruit, No Mass (Female) Exam: Deferred Rectal (Female) Exam: Deferred Back Exam: Normal Inspection, Full Range of Motion, NT Extremities: Normal Inspection, Normal Range of Motion, Non-Tender, Normal Capillary Refill, No Pedal Edema Neurological: Alert, Oriented, CN II-XII Intact, Normal Cognition, Normal Gait, Normal Reflexes, No Motor/Sensory Deficits Psychiatric: Normal Affect, Normal Mood Lymphatic: No Adenopathy Course - Vital Signs Last Recorded V/S: Last Vital Signs Temp 98.5 F 03/31/19 10:15 Pulse 94 03/31/19 10:15 Resp 19 03/31/19 10:15 BP 130/49 L 03/31/19 10:15 Pulse Ox 97 03/31/19 10:15 - Orders/Labs/Meds Orders: Active Orders 24 hr Category Date Time Status Cardiac Monitoring [RC] . DIRECTED Care 03/31/19 09:52 Active CXR [Chest 2V] [CR] Stat Exams 03/31/19 09:35 Taken PRO B-TYPE NATRIUR PEPT,BNPPRO [CHEM] Stat Lab 03/31/19 10:15 Ordered Labs: Laboratory Tests 03/31/19 03/31/19 03/31/19 Range/Units 09:45 09:45 09:45 WBC 10.7 H (4.0-10.2) K/uL RBC 4.17 (3.77-5.09) M/uL Hgb 13.9 (11.7-15.5) g/dL Hct 39.1 (34.0-46.0) % MCV 93.8 (84.0-98.0) fL MCH 33.3 (28.2-33.3) pg MCHC 35.5 (31.7-36.0) g/dL RDW 11.7 (11.2-14.1) % Plt Count 185 (150-350) K/uL Neut % (Auto) 54.7 (45.0-80.0) % Lymph % (Auto) 21.9 (10.0-50.0) % Kay % (Auto) 15.6 H (2.0-14.0) % Eos % (Auto) 7.4 H (0.0-5.0) % Baso % (Auto) 0.4 (0.0-2.0) % Neut # (Auto) 5.87 (1.40-7.00) K/uL Lymph # (Auto) 2.35 (0.50-3.50) K/uL Kay # (Auto) 1.67 H (0.00-1.00) K/uL Eos # (Auto) 0.79 H (0.00-0.50) K/uL Baso # (Auto) 0.04 (0.00-0.20) K/uL Sodium 133 L (136-145) mmol/L Potassium 3.8 (3.5-5.1) mmol/L Chloride 97 L (98-107) mmol/L Carbon Dioxide 26.2 (21.0-32.0) mmol/L BUN 20 H (7-18) mg/dL Creatinine 1.00 (0.51-1.17) mg/dL Est Cr Clr Drug Dosing 34.99 mL/min Estimated GFR (MDRD) 54 mL/min Glucose 118 H (74-106) mg/dL Lactic Acid 0.7 (0.4-2.0) mmol/L Calcium 9.1 (8.5-10.1) mg/dL Total Bilirubin 0.5 (0.2-1.0) mg/dL AST 17 (15-37) U/L ALT 24 (12-78) U/L Alkaline Phosphatase 73 (46-116) IU/L Total Protein 7.0 (6.4-8.2) g/dL Albumin 3.3 L (3.4-5.0) g/dL Departure - Departure Time of Disposition: 10:36 Disposition: Home, Self-Care 01 Condition: Fair Clinical Impression: Bronchitis - Discharge Information *PRESCRIPTION DRUG MONITORING PROGRAM REVIEWED*: No *COPY OF PRESCRIPTION DRUG MONITORING REPORT IN PATIENT J LUIS: No Referrals: Josemanuel Enriquez MD [Primary Care Provider] - Care Plan Goals: Patient will be sent home to take an extra hydrochlorothiazide we will give her Zithromax one tablet for 6 days follow-up in 5 days call if any problems - My Orders Last 24 Hours: My Active Orders 03/31/19 09:35 CXR [Chest 2V] [CR] Stat 03/31/19 09:52 Cardiac Monitoring [RC] . DIRECTED 03/31/19 10:15 PRO B-TYPE NATRIUR PEPT,BNPPRO [CHEM] Stat - Assessment/Plan Last 24 Hours: My Active Orders 03/31/19 09:35 CXR [Chest 2V] [CR] Stat 03/31/19 09:52 Cardiac Monitoring [RC] . DIRECTED 03/31/19 10:15 PRO B-TYPE NATRIUR PEPT,BNPPRO [CHEM] Stat
[2019-03-31 10:37] VITALS: BP 122/75; PULSE 102
== END 2019-03-31 11:05 | disposition home or self-care (01) ==
LOC: LL.ED 09:13
DX: J40 Bronchitis, not specified as acute or chronic (principal); I10 Essential (primary) hypertension; E78.00 Pure hypercholesterolemia, unspecified; K21.9 Gastro-esophageal reflux disease without esophagitis; Z88.8 Allergy status to other drugs, medicaments and biological substances; Z88.1 Allergy status to other antibiotic agents; Z88.0 Allergy status to penicillin; Z88.2 Allergy status to sulfonamides; Z79.899 Other long term (current) drug therapy; Z79.82 Long term (current) use of aspirin
CPT/HCPCS: 36415; 71046; 80053; 83605; 83880; 85025; 99285-25

== ENCOUNTER 2019-06-03 16:39 | Inpatient (IN) | payer MEDICARE, OTHER ==
[2019-06-03] MEDS ORDERED: Ticagrelor 90 MG Tab PO ONE (17:03)
[2019-06-03] MEDS ORDERED: Aspirin 81 MG Tab.Chew CHEW ONE (17:03)
[2019-06-03] MEDS ORDERED: Famotidine 20 MG/2 ML SDV IVPUSH ONE (17:03)
--- NOTE | 2019-06-03 17:03 | EDM.PDOC ---
ED HPI GENERAL MEDICAL PROBLEM - General Chief Complaint: Cardiovascular Problem Stated Complaint: fast heartbeat Time Seen by Provider: 06/03/19 16:55 Source of Information: Reports: Patient, Family, Old Records ([facility] chart/EMR) History Limitations: Reports: No Limitations - History of Present Illness INITIAL COMMENTS - FREE TEXT/NARRATIVE: The patient was brought to the emergency room via private automobile by her for evaluation of not feeling quite well, including some dizziness, heart flutter, and possible superior retrosternal chest pain radiating to her left jaw and right neck region with symptoms occurring at about 07:30 a.m. this morning. Note that she did stop taking her diltiazem on her own a few days ago secondary to somewhat low blood pressure at that time. The patient denies any orthostasis, orthopnea, diaphoresis, paresthesias, recent decreased exercise tolerance, or any other anginal-type symptoms. She has had some progressive dependent edema during the last month. In addition, she has breakthrough atrial fibrillation about 3 times per year despite previous medical therapy with no anticoagulation therapy at this time. No recent history of abdominal pain, heartburn, nausea, diarrhea, melena, gross hematochezia, or any food intolerance , including fatty foods, etc.. She denies any gross hematuria, colic, or other UTI symptoms. The patient also denies any recent fever, cough, wheezing, dyspnea , etc.. No history of recent headaches, visual changes, diplopia, change in mental status, or other change in neurological status. She denies any current pain or discomfort at this time, although her discomfort this morning was 8-9/ 10. Onset: Today, Gradual Onset Date: 06/03/19 Onset Time: 07:30 Duration: Intermittent Location: Reports: Face, Neck, Chest, Radiates to (As above). Denies: Head, Abdomen, Back, Upper Extremity, Left, Upper Extremity, Right Quality: Reports: Ache, Same as Previous Episode Severity: Moderate Improves with: Reports: None Worsens with: Reports: None Context: Reports: Other (As above). Denies: Sick Contact, Trauma Associated Symptoms: Reports: Chest Pain. Denies: Confusion, Cough, cough w sputum, Diaphoresis, Fever/Chills, Headaches, Loss of Appetite, Malaise, Nausea/ Vomiting, Rash, Seizure, Shortness of Breath, Syncope, Weakness Treatments MULTIMEDIA AUTHORING SPECIALIST: Reports: Other (see below) (None) - Related Data Allergies Allergy/AdvReac Type Severity Reaction Status Date / Time albuterol Allergy Vomiting Verified 06/03/19 16:45 [From Proventil HFA] nitrofurantoin Allergy Rash Verified 06/03/19 16:45 macrocrystalline [From Macrobid] Penicillins Allergy Rash Verified 06/03/19 16:45 sulfamethoxazole Allergy Itching Verified 06/03/19 16:45 [From Bactrim] Home Meds: Home Meds Aspirin [Halfprin] 81 mg PO Q2D 06/05/13 [History] Calcium Carbonate/Vitamin D3 [Calcium 500 + Vit D 400] 2 tab PO DAILY@06/05 [History] Ranitidine [Zantac] 150 mg PO BID 06/05/13 [History] atorvaSTATin [Lipitor] 20 mg PO BEDTIME 06/05/13 [History] Losartan Potassium [Cozaar] 100 mg PO DAILY@0800 11/28/16 [History] cloNIDine [Catapres] 0.1 mg PO ASDIRECTED PRN #30 tablet 03/11/19 [Rx] Metoprolol Succinate [Toprol XL 50mg] 50 mg PO DAILY@08 03/31/19 [History] NIFEdipine [Nifedipine ER] 60 mg PO DAILY@22 03/31/19 [History] hydroCHLOROthiazide [Hydrochlorothiazide] 37.5 mg PO DAILY@08 03/31/19 [History] Past Medical History HEENT History: Reports: Cataract, Hard of Hearing, Impaired Vision, Otitis Media , Sinusitis. Denies: Allergic Rhinitis, Glaucoma, Macular Degeneration, Retinal Detachment Other HEENT History: She wears glasses. Mild bilateral presbycusis with no current hearing therapy. Recurrent otitis media with no previous PE tubes therapy. Cardiovascular History: Reports: Afib, Arrhythmia, Heart Failure, Heart Murmur, High Cholesterol, Hypertension, Syncope. Denies: Aneurysm, Blood Clots/VTE/DVT , CAD, Cardiomyopathy, LA, PTCA, PVD Other Cardiovascular History: Recurrent atrial fibrillation since colonoscopy on 07/28/16 with no current anticoagulation therapy. First-degree AV block and complete right bundle branch block. Carotid occlusive disease by MRI of the head on 02/11/09. Syncopal episode related to vasovagal reaction. Mild mitral valve insufficiency and left atrial enlargement by echocardiogram with aortic valve calcification without stenosis. D-dimer elevation in November 2016 with negative workup as below. Respiratory History: Reports: Bronchitis, Recurrent, COPD, Intubation, Previous , Pulmonary Fibrosis, Sleep Apnea, Other (See Below). Denies: Intubation, Difficult, PE, Pneumonia, Recurrent, Pneumothorax, TB Other Respiratory History: She has been compliant with CPAP therapy since January 2019. Benign bilateral pulmonary nodules. Gastrointestinal History: Reports: Cholelithiasis, Colon Polyp, Diverticulosis, Gastritis, GERD, Hemorrhoids, Hiatal Hernia, Other (See Below). 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 Serrated adenomatous polyps in the ascending colon 2 removed via colonoscopy in 2014. Rectal tubulovillous adenoma removed on 06/06/13. Sigmoid diverticulosis. Benign hepatic cysts. Benign hyperplastic polyp of the stomach and rectal tubulovillous adenoma from the rectum removed on 12/06/12. Genitourinary History: Reports: None. Denies: Acute Renal Failure, Chronic Renal Insuffiency, Renal Calculus, STD, Urinary Incontinence, UTI, Recurrent CHEMICAL PROCESS PROJECT ENGINEER History: Reports: Polycystic Ovaries, . Denies: Dysfunctional Uterine Bleeding, Endometriosis, Fibroids : 4 Para: 4 LMP (Approximate): Other (See Below) Other CHEMICAL PROCESS PROJECT ENGINEER History: Ovarian cysts. Menopause in her late 40s. Full term without complications during pregnancies or deliveries. Musculoskeletal History: Reports: Arthritis, Back Pain, Chronic, Fracture, Neck Pain, Chronic, Osteoarthritis, Osteoporosis, Other (See Below). Denies: Gout, RA, SLE Other Musculoskeletal History: L1-L2 vertebral body compression fractures Distal fourth pharyngeal finger fracture of the right hand in her 40s. Right partial rotator cuff tear by MRI on 04/14/10. Neurological History: Reports: Headaches, Chronic, Seizure, Other (See Below). Denies: Cerebral Aneurysms, Concussion, CVA, Head Trauma, Migraines, MS, Neuropathy, Peripheral, Parkinson's, TIA, Vertigo Other Neuro History: Questionable nonspecific seizure versus vasovagal reaction. Psychiatric History: Reports: None. Denies: Abuse, Victim of, ADD, ADHD, Addiction, Anxiety, Depression, Psych Hospitalization(s), PTSD, Suicide Attempt , Suicidal Ideation Endocrine/Metabolic History: Reports: Obesity/BMI 30+, Osteopenia, Osteoporosis , Vitamin D Deficiency, Other (See Below). Denies: Diabetes, Gestational, Diabetes, Type I, Diabetes, Type II, Diabetes Mellitus, Type 3c, Hypothyroidism , IDDM Other Endocrine/Metabolic History: Hypokalemia, hyponatremia, hypomagnesemia. Hematologic History: Reports: Blood Transfusion(s), Other (See Below). Denies: Anemia, B12 Deficiency, Iron Deficiency Other Hematologic History: Auto transfusion with total knee arthroplasties as below. Immunologic History: Reports: None. Denies: AIDS, HIV, SLE Oncologic (Cancer) History: Reports: None. Denies: Basal Cell Carcinoma, Cervix , Colon, Hodgkin's Lymphoma, Leukemia, Lymphoma, Malignant Melanoma, Non-Hodgkin 's Lymphoma, Ovarian, Squamous Cell Carcinoma Dermatologic History: Reports: Psoriasis, Other (See Below). Denies: Eczema Other Dermatologic History: Seborrheic keratosis. - Infectious Disease History Infectious Disease History: Reports: Chicken Pox, Measles, Mumps, Pertussis ( Whooping Cough), Shingles (Left-sided zoster ophthalmicus in the early . Herpes zoster in the right CVA and right upper quadrant of the abdomen about 2012). Denies: C-Difficile, Helicobacter Pylori, Meningitis, Mononucleosis, MRSA, Rheumatic Fever, Rubella, Scarlet Fever, TB, VRE - Past Surgical History Head Surgeries/Procedures: Reports: None HEENT Surgical History: Reports: Cataract Surgery, Oral Surgery, Other (See Below). Denies: Adenoidectomy, Eye Surgery, Laser Surgery, LASIK, Myringotomy w Tube(s), Naso-Sinus Surgery, Tonsillectomy Other HEENT Surgeries/Procedures: Bilateral cataract surgery in about 2014. [place] teeth extraction 4 in her 40s. Cardiovascular Surgical History: Reports: None. Denies: Varicose Respiratory Surgical History: Reports: None. Denies: Thoracentesis GI Surgical History: Reports: Cholecystectomy, Colonoscopy, EGD, Polypectomy, Other (See Below). Denies: Appendectomy, Hernia, Abdominal, Hernia, Inguinal, Hernia Repair/Other Other GI Surgeries/Procedures: Open Cholecystectomy concomitant with ovarian cyst removal in the 1960s. Colonoscopy with polypectomies on 07/28/16 and . EGD and colonoscopy on 04/19/18, 02/26/15, and 12/06/12. Appendectomy in 1962. Female Surgical History: Reports: Cystoscopy, D&C, Oophorectomy, Other (See Below). Denies: Breast Biopsy, Section, Hysterectomy, Salpingo- Oophorectomy, Tubal Ligation Other Female Surgeries/Procedures: Right ovarian cyst excision in the . Cystoscopy in the early 1999. D&C on 12/01/10 secondary to thickened endometrium by ultrasound. Endocrine Surgical History: Reports: None. Denies: Thyroid Biopsy Neurological Surgical History: Denies: C-Spine, Discectomy, Laminectomy, Lumbar Spine, Sacral Spine, Spinal Fusion, Thoracic Spine, Vertebroplasty Musculoskeletal Surgical History: Reports: Carpal Tunnel, Joint Replacement, Knee Replacement, Other (See Below). Denies: Ganglion Cyst, Shoulder Surgery Other Musculoskeletal Surgeries/Procedures:: Tendon repair of partial tear of the left posterior tibial tendon in 2015. Right carpal tunnel release in the . Bilateral hemiarthroplasty of her knees on 11/29/07. Oncologic Surgical History: Reports: None Dermatological Surgical History: Reports: Skin Biopsy, Other (See Below) Other Dermatological Surgeries/Procedures: Excision of seborrheic keratosis from the right upper arm and left thigh on 08/13/18. Excision of seborrheic keratosis from the right cheek region on 11/08/17. Excision of borderline psoriasis from the right buttocks on 05/03/18. - Past Imaging History Past Imaging History: Reports: Cardiac Echo (02/1719 with ejection fraction of 55 60 percent with otherwise findings as above. Previous echocardiogram on .), Carotid US (02/13/14.), CAT Scan (Negative CTA of the chest for PE on . CT of the brain on 11/28/16. CT of the facial bones and sinuses on 09/01/15. CT of the abdomen and pelvis on 01/20/15. CT of the head on 01/02/08.), DEXA Scan ( and 01/27/06..), HIDA Scan (Normal on 12/20/12.), Mammogram (Last on 08/07/18. ), MRA (Brain on 02/11/09 positive for carotid occlusive disease as above.), MRI (Left ankle on 03/07/16. Right shoulder on 04/14/10. MRI C-spine and right shoulder on 04/14/10.), Sleep Study (Including CPAP titration in January 2019.), Stress Testing (Negative Cardiolite stress test on 03/03/11 with ejection fraction of 75%.), Ultrasound (Gallbladder ultrasound with Kinevac on 01/28/15 with previous gallbladder ultrasound on 12/06/12. Pelvic ultrasound on 11/12/10. Abdominal ultrasound on 04/09/10. Soft tissue ultrasound on 10/13/06.), Venous Doppler (Legs bilaterally negative on 11/29/16) Social & Family History - Family History HEENT: Reports: None. Denies: Cataract, Glaucoma, Macular Degeneration, Retinal Detachment Cardiac: Reports: Arrhythmia, Blood Clots/VTE/DVT, CAD, Heart Failure, Heart Murmur, High Cholesterol, Hypertension, LA, Pacemaker, Stent, Other (See Below) . Denies: Afib, PVD/COD Other Cardiac Family History: Mother with fatal heart disease at age 94. Sisters 2 with valve replacement one in her 60s see other in the 80s with another sister having valvular disease not requiring surgery with no history of rheumatic fever in any of these siblings. Sister with history of LA and PTCA/ stent her 70s and another sister having a PTCA/stent also in her 70s with subsequent Fatal LA in Her 80s.. Sister with fatal blood clots during pacemaker placement in her late 70s. Brother with LA and fatal CHF at age 80. All of the above family members also suffered from hyperlipidemia and hypertension. Respiratory: Reports: Asthma, COPD, PE, Sleep Apnea, Other (See Below). Denies : Pneumothorax Other Respiratory Family Hisory: Brother with COPD likely secondary to tobacco use. Sisters 2 with sleep apnea. Possible intraoperative PE and pacemaker placement and sister as above. Asthma with paternal aunt and paternal uncle. GI: Denies: Celiac Disease, Cholelithiasis, Colon Polyps, GERD, GI bleed, Inflammatory Bowel Disease, Irritable Bowel Syndrome, PUD : Reports: None. Denies: Dialysis, Renal Calculus, Renal Disease/ Insufficiency OBGYN: Reports: None. Denies: Endometriosis, Recurrent Spontaneous Musculoskeletal: Reports: None. Denies: Gout, RA, SLE Neurological: Reports: CVA, Other (See Below). Denies: Alzheimers Disease, Cerebral Aneurysms, Dementia, Migraines, MS, Parkinson's, Seizure, TIA Other Neurological Family History: Father with recurrent CVAs fatal at age 89. Psychiatric: Reports: None. Denies: Abuse, Victim of, ADD, ADHD, Anxiety, Depression, Psych Hospitalization(s), PTSD, Suicide Attempt Endocrine/Metabolic: Reports: Diabetes, type II, IDDM, Other (See Below). Denies: Diabetes, Gestational, Diabetes, Type I, Diabetes Mellitus, Type 3c, Hypothyroidism Other Endocrine/Metabolic Family History: Mother and sister with IDDM. Sisters 2 with AODM currently diet controlled. AODM and 3 maternal aunts and 2 maternal uncles. Hematologic: Reports: None. Denies: Anemia Immunologic: Reports: None. Denies: AIDS, HIV, SLE Dermatologic: Reports: None. Denies: Eczema, Psoriasis Oncologic: Reports: Breast, Colon, Esophageal, Metastatic, Pancreatic, Other ( See Below). Denies: Hodgkin's Lymphoma, Leukemia, Lung, Lymphoma, Non-Hodgkin' s Lymphoma, Skin, Uterine Other Oncologic Family History: Sister with fatal breast, pancreatic, and colon cancer in her 80s. Sisters 2 with colon cancer in their 70s. Brother with fatal esophageal cancer with previous history of Harris's esophagitis in his 80s with history of tobacco use. Maternal grandparents with fatal pancreatic cancer in their 70s. - Tobacco Use Smoking Status *Q: Never Smoker Tobacco Use Within Last Twelve Months: No Used Tobacco, but Quit: No Smoking Cessation Information Provided To Patient: No Second Hand Smoke Exposure: No Second Hand Smoke Education Provided: No - Caffeine Use Caffeine Use: Reports: Coffee (12 cups per day.). Denies: Energy Drinks, Soda , Tea - Alcohol Use Alcohol Use History: Yes Days Per Week of Alcohol Use: 0 Number of Drinks Per Day: 1 Number of Drinks Per Day Comment: Usually wine for holidays. No previous DWIs, problems with alcohol abuse, etc. Total Drinks Per Week: 0 Alcohol Use in Last Twelve Months: Yes Alcohol Use Frequency: Rarely - Recreational Drug Use Recreational Drug Use: No Drug Use in Last 12 Months: No Recreational Drug Type: Denies: Amphetamines (Speed), Cocaine, Heroin, Inhalants (Glues, Solvents, Aerosols), LSD (Acid), Marijuana/Hashish, Methamphetamine, Morphine, Oxycodone - Living Situation & Occupation Living situation: Reports: (1957, 4 children), with Family () Occupation: Retired ([employer] ) ED ROS GENERAL - Review of Systems Review Of Systems: Comprehensive ROS is negative, except as noted in HPI. ED EXAM, GENERAL - Physical Exam Exam: See Below Exam Limited By: No Limitations General Appearance: Alert, WD/WN, No Apparent Distress Eye Exam: Bilateral Eye: EOMI, Normal Inspection (No nystagmus. Patient wearing glasses.), PERRL Ears: Normal External Exam, Normal Canal, Normal TMs, Hearing Loss (Mild bilateral presbycusis). No: Hearing Grossly Normal Nose: Normal Inspection, Normal Mucosa, No Blood Throat/Mouth: Normal Inspection, Normal Lips, Normal Teeth, Normal Gums, Normal Oropharynx, Normal Voice, No Airway Compromise. No: Dysphagia, Perioral Cyanosis Head: Atraumatic, Normocephalic. No: Facial Swelling, Facial Tenderness, Sinus Tenderness Neck: Supple, Non-Tender, Full Range of Motion, Carotid Bruit (Mild bilateral carotid bruits). No: Lymphadenopathy (L), Lymphadenopathy (R), Thyromegaly Respiratory/Chest: No Respiratory Distress, No Accessory Muscle Use, Chest Non- Tender, Rales (Bilateral basilarmild). No: Rhonchi, Wheezing, Pleural Rub, Retractions Cardiovascular: No Gallop, No JVD, No Murmur, No Rub, Tachycardia, Irregularly Irregular. No: No Edema (Dependent edema as below), Gallop/S3, Gallop/S4, Friction Rub Peripheral Pulses: 2+: Radial (L), Radial (R), Dorsalis Pedis (L), Dorsalis Pedis (R) GI/Abdominal: Normal Bowel Sounds, Soft, Non-Tender, No Organomegaly, No Distention, No Abnormal Bruit, No Mass, Pelvis Stable, Other (Obese). No: Guarding (Female) Exam: Deferred Rectal (Female) Exam: Deferred Back Exam: Full Range of Motion, Other (Scoliosismild). No: CVA Tenderness (L) , CVA Tenderness (R), Muscle Spasm, Paraspinal Tenderness, Vertebral Tenderness Extremities: Normal Range of Motion, Non-Tender, Normal Capillary Refill, Pedal Edema (Bilateral lymphedema of the lower extremities). No: Keyur's Sign Neurological: Alert, Oriented, CN II-XII Intact, Normal Cognition, Normal Gait, Normal Reflexes (Negative Babinski's), No Motor/Sensory Deficits Psychiatric: Normal Affect, Normal Mood Skin Exam: Warm, Dry, Intact, Normal Color, No Rash, Other (Seborrheic keratosis ). No: Diaphoretic, Wound/Incision Lymphatic: No Adenopathy EKG INTERPRETATION EKG Date: 06/03/19 Time: 17:09 Rhythm: NSR Rate (Beats/Min): 80 [place]: Normal (Left cardiac) P-Wave: Variable QRS: Normal (0.09 seconds) ST-T: Normal (With previous T-wave inversion in lead 3) QT: Normal IN/PQ Interval: Variable. Previous first degree AV block and moderate diffuse biphasic P waves with poor R-wave progression in the anterior leads Comparison: Change From Previous EKG (As above since 03/09/19.) EKG Interpretation Comments: 1. No acute ischemic changes 2. Atrial fibrillation Course - Vital Signs Last Recorded V/S: Last Vital Signs Temp 36.9 C 06/03/19 17:03 Pulse 61 06/03/19 18:38 Resp 20 06/03/19 18:28 BP 147/68 H 06/03/19 18:38 Pulse Ox 100 06/03/19 18:28 Vital Signs - 24 hr 06/03/19 06/03/19 06/03/19 16:41 17:03 18:08 Temperature [ 36.9 C 36.9 C Oral] Pulse, 85 82 72 Peripheral [ Left Pulse Oximetry] Respiratory 16 20 16 Rate Blood Pressure 135/82 131/83 145/65 H [Right Upper Arm] O2 Sat by Pulse 96 97 98 Oximetry 06/03/19 06/03/19 06/03/19 18:19 18:28 18:38 Temperature [ Oral] Pulse, 59 L 68 61 Peripheral [ Left Pulse Oximetry] Respiratory 16 20 Rate Blood Pressure 138/69 136/64 147/68 H [Right Upper Arm] O2 Sat by Pulse 99 100 Oximetry - Orders/Labs/Meds Orders: Active Orders 24 hr Category Date Time Status Cardiac Monitoring [RC] . DIRECTED Care 06/03/19 17:03 Active EKG Documentation Completion [RC] ASDIRECTED Care 06/03/19 17:03 Active Oxygen Therapy, ED [RC] PRN Care 06/03/19 17:03 Active Peripheral IV Care [RC] . DIRECTED Care 06/03/19 17:03 Active Pulse Oximetry [RC] CONTINUOUS Care 06/03/19 17:03 Active Up With Assistance [RC] PFP Care 06/03/19 17:03 Active Vital Signs [RC] PFP Care 06/03/19 17:03 Active Nothing per Oral Now Diet [DIET] Diet 06/03/19 Breakfast Active Chest 1V Frontal [CR] Stat Exams 06/03/19 17:03 Taken Sodium Chloride 0.9% [Saline Flush] Med 06/03/19 17:03 Active 10 ml FLUSH ASDIRECTED PRN Obtain Past Medical Record [OM.PC] Urgent Oth 06/03/19 17:03 Active Peripheral IV Insertion Adult [OM.PC] Stat Oth 06/03/19 17:03 Ordered Resuscitation Status Stat Resus Stat 06/03/19 17:03 Ordered Medication Orders Sodium Chloride (Saline Flush) 10 ml FLUSH ASDIRECTED PRN PRN Reason: Keep Vein Open Last Admin: 06/03/19 18:10 Dose: 10 ml Labs: Laboratory Tests 06/03/19 06/03/19 06/03/19 Range/Units 17:00 17:00 17:00 WBC 6.1 (4.0-10.2) K/uL RBC 3.77 (3.77-5.09) M/uL Hgb 12.5 (11.7-15.5) g/dL Hct 36.0 (34.0-46.0) % MCV 95.5 (84.0-98.0) fL MCH 33.2 (28.2-33.3) pg MCHC 34.7 (31.7-36.0) g/dL RDW 12.7 (11.2-14.1) % Plt Count 207 (150-350) K/uL Neut % (Auto) 46.7 (45.0-80.0) % Lymph % (Auto) 38.8 (10.0-50.0) % [place] % (Auto) 10.7 (2.0-14.0) % Eos % (Auto) 2.6 (0.0-5.0) % Baso % (Auto) 1.2 (0.0-2.0) % Neut # (Auto) 2.84 (1.40-7.00) K/uL Lymph # (Auto) 2.36 (0.50-3.50) K/uL [place] # (Auto) 0.65 (0.00-1.00) K/uL Eos # (Auto) 0.16 (0.00-0.50) K/uL Baso # (Auto) 0.07 (0.00-0.20) K/uL PT 10.3 (9.5-12.0) SEC INR 1.0 APTT 29.4 (21.0-31.3) SEC D-Dimer, Quantitative 197 (0-400) ng/mL Sodium (136-145) mmol/L Potassium (3.5-5.1) mmol/L Chloride (98-107) mmol/L Carbon Dioxide (21.0-32.0) mmol/L BUN (7-18) mg/dL Creatinine (0.51-1.17) mg/dL Est Cr Clr Drug Dosing mL/min Estimated GFR (MDRD) mL/min Glucose (74-106) mg/dL Lactic Acid (0.4-2.0) mmol/L Uric Acid (2.6-7.2) mg/dL Calcium (8.5-10.1) mg/dL Magnesium (1.8-2.4) mg/dL Total Bilirubin (0.2-1.0) mg/dL AST (15-37) U/L ALT (12-78) U/L Alkaline Phosphatase (46-116) IU/L Creatine Kinase (26-308) U/L Creatine Kinase Index (0.0-2.5) % CK-MB (CK-2) (0.00-3.60) ng/mL Troponin I (0.000-0.056) ng/mL NT-Pro-B Natriuret Pep (0-125) pg/mL Total Protein (6.4-8.2) g/dL Albumin (3.4-5.0) g/dL TSH, Ultra Sensitive (0.358-3.740) mIU/mL 06/03/19 06/03/19 Range/Units 17:00 17:00 WBC (4.0-10.2) K/uL RBC (3.77-5.09) M/uL Hgb (11.7-15.5) g/dL Hct (34.0-46.0) % MCV (84.0-98.0) fL MCH (28.2-33.3) pg MCHC (31.7-36.0) g/dL RDW (11.2-14.1) % Plt Count (150-350) K/uL Neut % (Auto) (45.0-80.0) % Lymph % (Auto) (10.0-50.0) % [place] % (Auto) (2.0-14.0) % Eos % (Auto) (0.0-5.0) % Baso % (Auto) (0.0-2.0) % Neut # (Auto) (1.40-7.00) K/uL Lymph # (Auto) (0.50-3.50) K/uL [place] # (Auto) (0.00-1.00) K/uL Eos # (Auto) (0.00-0.50) K/uL Baso # (Auto) (0.00-0.20) K/uL PT (9.5-12.0) SEC INR APTT (21.0-31.3) SEC D-Dimer, Quantitative (0-400) ng/mL Sodium 136 (136-145) mmol/L Potassium 3.7 (3.5-5.1) mmol/L Chloride 99 (98-107) mmol/L Carbon Dioxide 26.6 (21.0-32.0) mmol/L BUN 32 H (7-18) mg/dL Creatinine 1.04 (0.51-1.17) mg/dL Est Cr Clr Drug Dosing 33.10 mL/min Estimated GFR (MDRD) 51 mL/min Glucose 105 (74-106) mg/dL Lactic Acid 0.6 (0.4-2.0) mmol/L Uric Acid 5.9 (2.6-7.2) mg/dL Calcium 9.6 (8.5-10.1) mg/dL Magnesium 1.9 (1.8-2.4) mg/dL Total Bilirubin 0.4 (0.2-1.0) mg/dL AST 19 (15-37) U/L ALT 24 (12-78) U/L Alkaline Phosphatase 64 (46-116) IU/L Creatine Kinase 51 (26-308) U/L Creatine Kinase Index 1.4 (0.0-2.5) % CK-MB (CK-2) 0.70 (0.00-3.60) ng/mL Troponin I 0.000 (0.000-0.056) ng/mL NT-Pro-B Natriuret Pep 852 H (0-125) pg/mL Total Protein 7.3 (6.4-8.2) g/dL Albumin 3.8 (3.4-5.0) g/dL TSH, Ultra Sensitive 0.992 (0.358-3.740) mIU/mL Meds: Medications Generic Name Dose Route Start Last Admin Trade Name Freq PRN Reason Stop Dose Admin Sodium Chloride 10 ml 06/03/19 17:03 06/03/19 18:10 Saline Flush FLUSH 10 ml ASDIRECTED PRN Administration Keep Vein Open Discontinued Medications Generic Name Dose Route Start Last Admin Trade Name Freq PRN Reason Stop Dose Admin Aspirin 324 mg 06/03/19 17:03 06/03/19 17:09 Aspirin CHEW 06/03/19 17:04 324 mg ONETIME ONE Administration Diltiazem HCl 20 mg 06/03/19 17:57 06/03/19 18:05 Diltiazem IVPUSH 06/03/19 17:58 10 mg ONETIME ONE Administration Famotidine 40 mg 06/03/19 17:03 06/03/19 17:08 Pepcid IVPUSH 06/03/19 17:04 40 mg ONETIME ONE Administration Ticagrelor 180 mg 06/03/19 17:03 06/03/19 17:09 Brilinta PO 06/03/19 17:04 180 mg ONETIME ONE Administration Note only 10 mg of IV diltiazem required. 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 Chest x-ray, portable, shows moderate cardiomegaly with moderate centralized CHF , COPD, and pulmonary fibrotic changes with no pulmonary infiltrates, pneumothorax, etc. Moderate aortic valve calcification with elevated right hemidiaphragm. Mild to moderate scoliosis with additional osteoarthritic changes. Departure - Departure Time of Disposition: 19:30 Disposition: Admitted As Inpatient 66 Condition: Good Clinical Impression: Peptic reflux disease, PVCs (premature ventricular contractions), PAC ( premature atrial contraction), Chest pain in adult CHF (congestive heart failure) Qualifiers: Qualified Code(s): I50.9 - Heart failure, unspecified Hypertension Qualifiers: Hypertension type: essential hypertension Qualified Code(s): I10 - Essential ( primary) hypertension Osteoarthritis Qualifiers: Osteoarthritis location: multiple joints Osteoarthritis type: primary Qualified Code(s): M15.0 - Primary generalized (osteo)arthritis Hyperlipidemia Qualifiers: Hyperlipidemia type: unspecified Qualified Code(s): E78.5 - Hyperlipidemia, unspecified COPD (chronic obstructive pulmonary disease) Qualifiers: COPD type: emphysema Emphysema type: panlobular Qualified Code(s): J43.1 - Panlobular emphysema Sleep apnea Qualifiers: Sleep apnea type: unspecified type Qualified Code(s): G47.30 - Sleep apnea, unspecified Atrial fibrillation Qualifiers: Atrial fibrillation type: paroxysmal Qualified Code(s): I48.0 - Paroxysmal atrial fibrillation Forms: ED Department Discharge Care Plan Goals: See plan. - Problem List & Annotations (1) CHF (congestive heart failure) SNOMED Code(s): 23704051 Code(s): I50.9 - HEART FAILURE, UNSPECIFIED Status: Chronic Priority: Medium Current Visit: Yes Onset Date: ~08/22/16 Annotation/Comment:: Moderate CHF per chest x-ray with additional BNP elevation. Otherwise cardiac enzymes were negative with no significant EKG changes. Initiate standard rule out LA orders. She did respond extremely well to low-dose IV diltiazem as above. Note that the patient did discontinue her diltiazem on her own 1 week ago. Medication compliance strongly encouraged. Initiate standard rule out LA orders with further cardiology consultation depending on her clinical course. Recent echocardiogram on 03/12/19. Qualifiers: Heart failure type: systolic Heart failure chronicity: acute on chronic Qualified Code(s): I50.23 - Acute on chronic systolic (congestive) heart failure (2) Chest pain in adult SNOMED Code(s): 33093215 Code(s): R07.9 - CHEST PAIN, UNSPECIFIED Status: Acute Priority: High Current Visit: Yes Onset Date: 06/03/19 Annotation/Comment:: Chest pain protocol initiated in the emergency room. Otherwise as above. (3) Atrial fibrillation SNOMED Code(s): 44169035 Code(s): I48.91 - UNSPECIFIED ATRIAL FIBRILLATION Status: Acute Priority : High Current Visit: Yes Onset Date: 06/03/19 Annotation/Comment:: Recurrent atrial fibrillation as above. Patient will need to be placed on anticoagulation therapy injury to her recurrent atrial fibrillation by history. Initially subcutaneous Lovenox therapy on admission. Qualifiers: Atrial fibrillation type: paroxysmal Qualified Code(s): I48.0 - Paroxysmal atrial fibrillation (4) Hypertension SNOMED Code(s): 73630722 Code(s): I10 - ESSENTIAL (PRIMARY) HYPERTENSION Status: Chronic Priority : Medium Current Visit: No Annotation/Comment:: Blood pressures were under good control in the emergency room. She will require multiple medication adjustments including timing of these medications, etc. secondary to her recurrent atrial fibrillation CHF, etc. as above. Qualifiers: Hypertension type: essential hypertension Qualified Code(s): I10 - Essential (primary) hypertension (5) Peptic reflux disease SNOMED Code(s): 196596119 Code(s): K21.9 - GASTRO-ESOPHAGEAL REFLUX DISEASE WITHOUT ESOPHAGITIS Status: Chronic Priority: Medium Current Visit: Yes Annotation/Comment:: Stable by patient history and previous EGD as above. with previous history of Harris's esophagitis. High-dose IV Pepcid given as GI prophylaxis in the emergency room. (6) Osteoarthritis SNOMED Code(s): 075133868 Code(s): M19.90 - UNSPECIFIED OSTEOARTHRITIS, UNSPECIFIED SITE Status: Chronic Priority: Medium Current Visit: Yes Annotation/Comment:: Stable by patient history Qualifiers: Osteoarthritis location: multiple joints Osteoarthritis type: primary Qualified Code(s): M15.0 - Primary generalized (osteo)arthritis (7) Hyperlipidemia SNOMED Code(s): 13430434 Code(s): E78.5 - HYPERLIPIDEMIA, UNSPECIFIED Status: Chronic Priority: Medium Current Visit: Yes Annotation/Comment:: Under therapy with lipid panel and glycosylated hemoglobin in the a.m. Qualifiers: Hyperlipidemia type: unspecified Qualified Code(s): E78.5 - Hyperlipidemia , unspecified (8) COPD (chronic obstructive pulmonary disease) SNOMED Code(s): 90421634 Code(s): J44.9 - CHRONIC OBSTRUCTIVE PULMONARY DISEASE, UNSPECIFIED Status : Chronic Priority: Medium Current Visit: Yes Annotation/Comment:: Stable by history with no recent fever or bronchitic type symptoms. Qualifiers: COPD type: emphysema Emphysema type: panlobular Qualified Code(s): J43.1 - Panlobular emphysema (9) PAC (premature atrial contraction) SNOMED Code(s): 141200462 Code(s): I49.1 - ATRIAL PREMATURE DEPOLARIZATION Status: Acute Priority: Medium Current Visit: Yes Onset Date: 06/03/19 Annotation/Comment:: Medication adjustments during this hospitalization. (10) PVCs (premature ventricular contractions) SNOMED Code(s): 61873778 Code(s): I49.3 - VENTRICULAR PREMATURE DEPOLARIZATION Status: Acute Priority: Medium Current Visit: Yes Onset Date: 06/03/19 Annotation/ Comment:: Medication adjustments during this hospitalization. (11) Sleep apnea SNOMED Code(s): 04595513 Code(s): G47.30 - SLEEP APNEA, UNSPECIFIED Status: Chronic Priority: Medium Current Visit: Yes Annotation/Comment:: will bring CPAP machine for use during this hospitalization. She has been compliant with this therapy. Qualifiers: Sleep apnea type: unspecified type Qualified Code(s): G47.30 - Sleep apnea , unspecified - Problem List Review Problem List Initiated/Reviewed/Updated: Yes - My Orders Last 24 Hours: My Active Orders 06/03/19 17:03 Cardiac Monitoring [RC] . DIRECTED EKG Documentation Completion [RC] ASDIRECTED Oxygen Therapy, ED [RC] PRN Peripheral IV Care [RC] . DIRECTED Pulse Oximetry [RC] CONTINUOUS Up With Assistance [RC] PFP Vital Signs [RC] PFP Chest 1V Frontal [CR] Stat Sodium Chloride 0.9% [Saline Flush] 10 ml FLUSH ASDIRECTED PRN Obtain Past Medical Record [OM.PC] Urgent Peripheral IV Insertion Adult [OM.PC] Stat Resuscitation Status Stat 06/03/19 Breakfast Nothing per Oral Now Diet [DIET] - Assessment/Plan Admission H&P: Please use this note as an admission H&P Last 24 Hours: My Active Orders 06/03/19 17:03 Cardiac Monitoring [RC] . DIRECTED EKG Documentation Completion [RC] ASDIRECTED Oxygen Therapy, ED [RC] PRN Peripheral IV Care [RC] . DIRECTED Pulse Oximetry [RC] CONTINUOUS Up With Assistance [RC] PFP Vital Signs [RC] PFP Chest 1V Frontal [CR] Stat Sodium Chloride 0.9% [Saline Flush] 10 ml FLUSH ASDIRECTED PRN Obtain Past Medical Record [OM.PC] Urgent Peripheral IV Insertion Adult [OM.PC] Stat Resuscitation Status Stat 06/03/19 Breakfast Nothing per Oral Now Diet [DIET] Assessment:: As above Plan: As above. Extensive precautions were given to the patient and her , who are in agreement with the treatment plan. The patient will require about 3-4 days of inpatient/acute care secondary to multiple health problems as above.
[2019-06-03] MEDS ORDERED: Diltiazem 25 MG/5 ML SDV IVPUSH ONE (17:57)
[2019-06-03] MEDS: Sodium Chloride 0.9% 10 ML Syringe FLUSH PRN ×2 (18:10→20:52)
[2019-06-03] MEDS ORDERED: Temazepam 15 MG Cap PO PRN (19:41)
[2019-06-03] MEDS ORDERED: Acetaminophen 325 MG Tab PO PRN (19:41)
[2019-06-03] MEDS ORDERED: Sodium Chloride 0.9% 10 ML Syringe FLUSH PRN (19:41)
[2019-06-03] MEDS ORDERED: Diltiazem 120 MG Cap.CD PO SCH (19:45)
[2019-06-03] MEDS ORDERED: Non-Formulary Medication 1 Each (Atorvastatin [Lipitor] 20 MG) PO SCH (20:00)
[2019-06-03] MEDS: Furosemide 40 MG/4 ML VIAL IVPUSH SCH (20:50)
[2019-06-03] MEDS ORDERED: Enoxaparin 60 MG/0.6 ML Syringe SUBCUT SCH (21:00)
[2019-06-03] MEDS ORDERED: atorvaSTATin 10 MG Tab PO SCH ×2 (21:09→22:00)
--- NOTE | 2019-06-04 03:33 | PCM.DCSUM1 ---
Discharge Summary - Hospital Course HPI Initial Comments: See emergency room note/admission H&P Brief History: See emergency room note/admission H&P Diagnosis: Stroke: No Modified [place] Scale: No Symptoms at All Modified [place] Scale Score: 0 - Discharge Data Discharge Date: 06/04/19 Discharge Disposition: DC/Tfer to Acute Hospital 02 Condition: Fair - Referral to Home Health Primary Care Physician: PCP None - Discharge Diagnosis/Problem(s) (1) Seizure SNOMED Code(s): 35654162 ICD Code: R56.9 - UNSPECIFIED CONVULSIONS Status: Acute Priority: High Current Visit: Yes Onset Date: 06/04/19 Problem Details: At about 02:50 hours the nurses accompanying the patient back from the bathroom after a small urine urination when the patient suddenly became extremely dizzy with subsequent true syncopal episode and possible tonic-clonic seizure activity without urinary or stool incontinence. She experienced severe bradycardia with heart rates in the 20s to 30s with breakthrough occasional PVCs and subsequent recurrent 3 beat runs of V. tach with symptoms lasting for about 3 minutes. No history of significant fall, head injury, or true postictal sedation. She denied any chest pain/pressure, headaches, visual changes, nausea or diaphoresis , or other anginal-type symptoms. This episode was apparently similar to previous multiple episodes in the past, including last episode in May 2018. Based on absence of postictal sedation suspect syncope related to her bradycardia with possibility of sick sinus syndrome. Despite severe bradycardia the patient remained in otherwise normal sinus rhythm with no significant heart block, etc. based on review of rhythm strips. Note that the nurses did have a crash cart and applied defibrillation pads however this was is not required. Stat Accu-Chek was normal at 139 mg percent. The patient was back to her normal baseline at time of my arrival to the hospital room with expected event amnesia secondary to her severe bradycardia brief loss of consciousness. Telephone consultation with [facility] in 04:40 hours with subsequent telephone consultation at 04:[address] Faustin, hospitalist at [facility] in [place], who does accept the patient for direct admission, with no further treatment recommendations given. Ambulance transfer with casino assistant manager accompaniment. (2) Bradycardia SNOMED Code(s): 77280383 ICD Code: R00.1 - BRADYCARDIA, UNSPECIFIED Status: Chronic Priority: High Current Visit: Yes Problem Details: As above with previous known history of intermittent bradycardia, which had been related to her medical therapy in the past. Note initial plans to decrease her morning Toprol-XL to 25 mg daily during to persistent bradycardia during early phases of this hospitalization. In addition, note discontinuation of patient's previous Procardia XL and clonidine therapy. (3) CHF (congestive heart failure) SNOMED Code(s): 85095015 ICD Code: I50.9 - HEART FAILURE, UNSPECIFIED Status: Chronic Priority: Medium Current Visit: Yes Onset Date: ~08/22/16 Problem Details: Moderate CHF per chest x-ray with additional BNP elevation on admission. Serial cardiac enzymes have been negative for acute DC to this point. Note significant bradycardia as above with no significant EKG changes. She did respond extremely well to low-dose IV diltiazem in the emergency room with this medication also effective in the past. Note that the patient did discontinue her diltiazem on her own 1 week ago secondary to her blood pressures being normal/improved at that time. Medication compliance strongly encouraged. Recent echocardiogram was conducted on 03/12/19 with results as per emergency room note. IV Lasix and additional potassium supplementation were initiated on admission however the patient only received 1 dose of IV Lasix with 3 AM Lasix dose held and patient given an additional 40 mEq oral dose of potassium chloride prior to transfer. She may benefit from a pacemaker initially in light of recurrent bradycardia as above/below. Qualifiers: Heart failure type: systolic Heart failure chronicity: acute on chronic Qualified Code(s): I50.23 - Acute on chronic systolic (congestive) heart failure (4) PVCs (premature ventricular contractions) SNOMED Code(s): 63024382 ICD Code: I49.3 - VENTRICULAR PREMATURE DEPOLARIZATION Status: Acute Priority: Medium Current Visit: Yes Onset Date: 06/03/19 Problem Details: As above. Note recurrent breakthrough 3 beat runs of ventricular tachycardia at time of severe bradycardia as above. (5) Chest pain in adult SNOMED Code(s): 64307129 ICD Code: R07.9 - CHEST PAIN, UNSPECIFIED Status: Acute Priority: High Current Visit: Yes Onset Date: 06/03/19 Problem Details: Chest pain protocol initiated in the emergency room. Otherwise as above. (6) Atrial fibrillation SNOMED Code(s): 29093712 ICD Code: I48.91 - UNSPECIFIED ATRIAL FIBRILLATION Status: Acute Priority : High Current Visit: Yes Onset Date: 06/03/19 Problem Details: Recurrent atrial fibrillation as per emergency room note. Patient will need to be placed on anticoagulation therapy secondary to her recurrent atrial fibrillation by history. She has requesting initiation of Eliquis rather than Coumadin therapy , although initially subcutaneous Lovenox therapy was initiated on admission very to her nonspecific atypical chest discomfort prior to admission as per emergency room note. No recurrence of atrial fibrillation despite significant bradycardia as above. Qualifiers: Atrial fibrillation type: paroxysmal Qualified Code(s): I48.0 - Paroxysmal atrial fibrillation (7) Hypertension SNOMED Code(s): 40370947 ICD Code: I10 - ESSENTIAL (PRIMARY) HYPERTENSION Status: Chronic Priority : Medium Current Visit: Yes Problem Details: Blood pressures were under good control in the emergency room and during this hospitalization. Multiple medication adjustments, including timing of these medications, etc. secondary to her recurrent atrial fibrillation CHF, etc. were planned during this hospitalization. Qualifiers: Hypertension type: essential hypertension Qualified Code(s): I10 - Essential (primary) hypertension (8) Peptic reflux disease SNOMED Code(s): 366659008 ICD Code: K21.9 - GASTRO-ESOPHAGEAL REFLUX DISEASE WITHOUT ESOPHAGITIS Status: Chronic Priority: Medium Current Visit: Yes Problem Details: Stable by patient history and previous EGD as above. with previous history of Harris's esophagitis. High-dose IV Pepcid given as GI prophylaxis in the emergency room. (9) Osteoarthritis SNOMED Code(s): 858103292 ICD Code: M19.90 - UNSPECIFIED OSTEOARTHRITIS, UNSPECIFIED SITE Status: Chronic Priority: Medium Current Visit: Yes Problem Details: Stable by patient history Qualifiers: Osteoarthritis location: multiple joints Osteoarthritis type: primary Qualified Code(s): M15.0 - Primary generalized (osteo)arthritis (10) Hyperlipidemia SNOMED Code(s): 48412303 ICD Code: E78.5 - HYPERLIPIDEMIA, UNSPECIFIED Status: Chronic Priority: Medium Current Visit: Yes Problem Details: Under therapy with lipid panel and glycosylated hemoglobin had been planned in the a.m. prior to patient's transfer, however were not conducted during this hospitalization. Qualifiers: Hyperlipidemia type: unspecified Qualified Code(s): E78.5 - Hyperlipidemia , unspecified (11) COPD (chronic obstructive pulmonary disease) SNOMED Code(s): 30116015 ICD Code: J44.9 - CHRONIC OBSTRUCTIVE PULMONARY DISEASE, UNSPECIFIED Status : Chronic Priority: Medium Current Visit: Yes Problem Details: Stable by history with no recent fever or bronchitic type symptoms. Qualifiers: COPD type: emphysema Emphysema type: panlobular Qualified Code(s): J43.1 - Panlobular emphysema (12) PAC (premature atrial contraction) SNOMED Code(s): 282112414 ICD Code: I49.1 - ATRIAL PREMATURE DEPOLARIZATION Status: Acute Priority : Medium Current Visit: Yes Onset Date: 06/03/19 Problem Details: Medication adjustments planned during this hospitalization as above. (13) Sleep apnea SNOMED Code(s): 53516743 ICD Code: G47.30 - SLEEP APNEA, UNSPECIFIED Status: Chronic Priority: Medium Current Visit: Yes Problem Details: brought her CPAP machine for use during this hospitalization. She has been compliant with this therapy in the past. Qualifiers: Sleep apnea type: unspecified type Qualified Code(s): G47.30 - Sleep apnea , unspecified (14) Hypokalemia SNOMED Code(s): 99642049 ICD Code: E87.6 - HYPOKALEMIA Status: Chronic Priority: Medium Current Visit: No Onset Date: ~08/20/16 Problem Details: As above - Patient Summary/Data Complications: Severe bradycardia with short runs of ventricular tachycardia as above. Consults: Hospitalists as above. Labs Pending at D/C: 1. Prolactin level 2. Final report of CT scan of the head Recommended Follow-up Testing/Procedures: As per accepting providers Planned Operative Procedure(s) after DC: As per accepting providers. Hospital Course: The patient was admitted to inpatient/acute care for treatment of her recurrent CHF likely secondary to her atrial fibrillation with mild rapid ventricular response with additional atypical chest pain prior to admission. Note initial negative workup for acute DC. Patient had been noncompliant with her previous diltiazem therapy with overall excellent results with low-dose IV diltiazem in the emergency room. She quickly converted to normal sinus rhythm with borderline bradycardia during the early phases of this hospitalization. Note subsequent development of severe bradycardia with secondary syncope and/or seizure activity as above. No development of chest pain or anginal type symptoms during this hospitalization. No other complications during this hospitalization, however early patient transfer as above secondary to development of her bradycardia, recurrent ventricular tachycardia, etc. as above. Patient has remained nothing by mouth throughout this hospitalization. - Patient Instructions Diet: NPO Activity: Bedrest, May Use Bathroom (With accompaniment) Driving: Do Not Drive Showering/Bathing: No Showering Notify Provider of: Increased Pain, Nausea and/or Vomiting - Discharge Plan *PRESCRIPTION DRUG MONITORING PROGRAM REVIEWED*: Not Applicable *COPY OF PRESCRIPTION DRUG MONITORING REPORT IN PATIENT J LUIS: Not Applicable Home Medications: Home Meds Aspirin [Halfprin] 81 mg PO Q2D 06/05/13 [History] Calcium Carbonate/Vitamin D3 [Calcium 500 + Vit D 400] 2 tab PO DAILY@06/05 [History] Ranitidine [Zantac] 150 mg PO BID 06/05/13 [History] atorvaSTATin [Lipitor] 20 mg PO BEDTIME 06/05/13 [History] Losartan Potassium [Cozaar] 100 mg PO DAILY@0800 11/28/16 [History] cloNIDine [Catapres] 0.1 mg PO ASDIRECTED PRN #30 tablet 03/11/19 [Rx] Metoprolol Succinate [Toprol XL 50mg] 50 mg PO DAILY@03/31/19 [History] NIFEdipine [Nifedipine ER] 60 mg PO DAILY@03/31/19 [History] hydroCHLOROthiazide [Hydrochlorothiazide] 37.5 mg PO DAILY@03/31/19 [History] Oxygen Therapy Mode: Room Air Patient Handouts: Enoxaparin injection Forms: ED Department Discharge, Interfacility Transfer EMTALA - Discharge Summary/Plan Comment DC Time >30 min.: Yes (Coordination of care) Discharge Summary/Plan Comment: As above. Extensive precautions were given to the patient, who is in agreement with the treatment plan. Ambulance transfer with casino assistant manager accompaniment. - General Info Date of Service: 06/04/19 Admission Dx/Problem (Free Text: 1. CHF 2. Atrial fibrillation with rapid ventricular response 3. Atypical chest pain Functional Status: Reports: Pain Controlled, Ambulating (With assist), Urinating , New Symptoms (Syncopal episode as above). Denies: Tolerating Diet (Nothing by mouth), Incentive Spirometry - Review of Systems General: Reports: Fatigue, Other (Syncopal episode and/or seizure as above). Denies: Fever, Weakness, Malaise, Chills, Night Sweats, Appetite HEENT: Reports: Glasses. Denies: Ear Pain, Eye Pain, Headaches, Post Nasal Drip , Sinus Congestion, Sore Throat, Rhinitis, Visual Changes Pulmonary: Reports: No Symptoms. Denies: Shortness of Breath, Pleuritic Chest Pain, Cough, Sputum, Wheezing Cardiovascular: Reports: Lightheadedness, Other (Syncopal episode). Denies: Chest Pain, Palpitations, Dyspnea on Exertion, Orthopnea, PND, Edema Gastrointestinal: Reports: No Symptoms. Denies: Abdominal Pain, Constipation, Decreased Appetite, Diarrhea, Difficulty Swallowing, Flatus, Hematochezia, Melena, Nausea, Vomiting Genitourinary: Reports: No Symptoms. Denies: Dysuria, Frequency, Burning, Pain , Incontinence, Hematuria, Retention, Flank Pain Musculoskeletal: Reports: No Symptoms. Denies: Neck Pain, Shoulder Pain, Arm Pain, Back Pain, Leg Pain Skin: Reports: No Symptoms. Denies: Diaphoresis, Bruising, Pruritis Neurological: Reports: Dizziness, Seizure, Syncope. Denies: Confusion, Headache , Numbness, Paresthesia, Tingling Psychiatric: Reports: No Symptoms. Denies: Confusion, Depression, Anxiety, Agitation, Hallucinations, Homicidal Ideation - Patient Data Vitals - Most Recent: Last Vital Signs Temp 36.8 C 06/04/19 00:31 Pulse 62 06/04/19 00:31 Resp 16 06/04/19 00:31 BP 122/56 L 06/04/19 00:31 Pulse Ox 98 06/04/19 00:31 Vital Signs - 24 hr 06/03/19 06/03/19 06/03/19 16:41 17:03 18:08 Temperature [ 36.9 C 36.9 C Oral] Temperature [ Temporal] Pulse, Peripheral Pulse, 85 82 72 Peripheral [ Left Pulse Oximetry] Respiratory 16 20 16 Rate Blood Pressure Blood Pressure 135/82 131/83 145/65 H [Right Upper Arm] O2 Sat by Pulse 96 97 98 Oximetry 06/03/19 06/03/19 06/03/19 18:19 18:28 18:38 Temperature [ Oral] Temperature [ Temporal] Pulse, Peripheral Pulse, 59 L 68 61 Peripheral [ Left Pulse Oximetry] Respiratory 16 20 Rate Blood Pressure Blood Pressure 138/69 136/64 147/68 H [Right Upper Arm] O2 Sat by Pulse 99 100 Oximetry 06/03/19 06/03/19 06/03/19 19:41 20:50 21:41 Temperature [ 36.8 C 36.8 C Oral] Temperature [ Temporal] Pulse, 67 Peripheral Pulse, 65 100 Peripheral [ Left Pulse Oximetry] Respiratory 16 14 Rate Blood Pressure 0/0 L Blood Pressure 104/86 112/89 [Right Upper Arm] O2 Sat by Pulse 96 100 Oximetry 06/03/19 06/04/19 06/04/19 22:35 00:31 03:00 Temperature [ 36.8 C 36.8 C Oral] Temperature [ Temporal] Pulse, Peripheral Pulse, 61 62 54 L Peripheral [ Left Pulse Oximetry] Respiratory 12 16 12 Rate Blood Pressure Blood Pressure 119/44 L 122/56 L 90/46 L [Right Upper Arm] O2 Sat by Pulse 99 98 96 Oximetry 06/04/19 06/04/19 06/04/19 03:05 03:10 03:55 Temperature [ 36.4 C Oral] Temperature [ 36.6 C Temporal] Pulse, Peripheral Pulse, 57 L 52 L 55 L Peripheral [ Left Pulse Oximetry] Respiratory 14 16 16 Rate Blood Pressure Blood Pressure 97/73 125/57 L 110/47 L [Right Upper Arm] O2 Sat by Pulse 97 98 100 Oximetry Weight - Most Recent: 90.492 kg I&O - Last 24 hours: Intake & Output 06/03/19 06/03/19 06/04/19 14:59 22:59 06:59 Output Total 1200 600 Balance -1200 -600 Imaging Impressions - Last 24 hrs: nuclear monitoring technician initially in the emergency room showed atrial fibrillation with maximum heart rate in the 110s with subsequent medical cardioversion with heart rate in the high 50s to low 60s. Note subsequent development of severe bradycardia with heart rate in the 20s to 30s, multiple PVCs and recurrent 3 beat runs of ventricular tachycardia with subsequent spontaneous return to borderline sinus bradycardia as above. My initial read of the Chest x-ray, portable, on 06/03/19 shows moderate cardiomegaly with moderate centralized CHF, COPD, and pulmonary fibrotic changes with no pulmonary infiltrates, pneumothorax, etc. Moderate aortic valve calcification with elevated right hemidiaphragm. Mild to moderate scoliosis with additional osteoarthritic changes. Final chest x-ray report received from radiology prior to patient's transfer indicates no CHF, however. Telephone consultation at 04:37 AM with the radiology department at [facility]. Preliminary verbal report of noncontrast CT scan of the head was normal. Lab Results - Last 24 hrs: Laboratory Results - last 24 hr 06/03/19 06/03/19 06/03/19 Range/Units 17:00 17:00 17:00 WBC 6.1 (4.0-10.2) K/uL RBC 3.77 (3.77-5.09) M/uL Hgb 12.5 (11.7-15.5) g/dL Hct 36.0 (34.0-46.0) % MCV 95.5 (84.0-98.0) fL MCH 33.2 (28.2-33.3) pg MCHC 34.7 (31.7-36.0) g/dL RDW 12.7 (11.2-14.1) % Plt Count 207 (150-350) K/uL Neut % (Auto) 46.7 (45.0-80.0) % Lymph % (Auto) 38.8 (10.0-50.0) % [place] % (Auto) 10.7 (2.0-14.0) % Eos % (Auto) 2.6 (0.0-5.0) % Baso % (Auto) 1.2 (0.0-2.0) % Neut # (Auto) 2.84 (1.40-7.00) K/uL Lymph # (Auto) 2.36 (0.50-3.50) K/uL [place] # (Auto) 0.65 (0.00-1.00) K/uL Eos # (Auto) 0.16 (0.00-0.50) K/uL Baso # (Auto) 0.07 (0.00-0.20) K/uL PT 10.3 (9.5-12.0) SEC INR 1.0 APTT 29.4 (21.0-31.3) SEC D-Dimer, Quantitative 197 (0-400) ng/mL Sodium (136-145) mmol/L Potassium (3.5-5.1) mmol/L Chloride (98-107) mmol/L Carbon Dioxide (21.0-32.0) mmol/L BUN (7-18) mg/dL Creatinine (0.51-1.17) mg/dL Est Cr Clr Drug Dosing mL/min Estimated GFR (MDRD) mL/min Glucose (74-106) mg/dL POC Glucose (65-110) mg/dl Lactic Acid (0.4-2.0) mmol/L Uric Acid (2.6-7.2) mg/dL Calcium (8.5-10.1) mg/dL Magnesium (1.8-2.4) mg/dL Total Bilirubin (0.2-1.0) mg/dL AST (15-37) U/L ALT (12-78) U/L Alkaline Phosphatase (46-116) IU/L Creatine Kinase (26-308) U/L Creatine Kinase Index (0.0-2.5) % CK-MB (CK-2) (0.00-3.60) ng/mL Troponin I (0.000-0.056) ng/mL NT-Pro-B Natriuret Pep (0-125) pg/mL Total Protein (6.4-8.2) g/dL Albumin (3.4-5.0) g/dL TSH, Ultra Sensitive (0.358-3.740) mIU/mL 06/03/19 06/03/19 06/03/19 Range/Units 17:00 17:00 22:32 WBC (4.0-10.2) K/uL RBC (3.77-5.09) M/uL Hgb (11.7-15.5) g/dL Hct (34.0-46.0) % MCV (84.0-98.0) fL MCH (28.2-33.3) pg MCHC (31.7-36.0) g/dL RDW (11.2-14.1) % Plt Count (150-350) K/uL Neut % (Auto) (45.0-80.0) % Lymph % (Auto) (10.0-50.0) % [place] % (Auto) (2.0-14.0) % Eos % (Auto) (0.0-5.0) % Baso % (Auto) (0.0-2.0) % Neut # (Auto) (1.40-7.00) K/uL Lymph # (Auto) (0.50-3.50) K/uL [place] # (Auto) (0.00-1.00) K/uL Eos # (Auto) (0.00-0.50) K/uL Baso # (Auto) (0.00-0.20) K/uL PT (9.5-12.0) SEC INR APTT (21.0-31.3) SEC D-Dimer, Quantitative (0-400) ng/mL Sodium 136 (136-145) mmol/L Potassium 3.7 (3.5-5.1) mmol/L Chloride 99 (98-107) mmol/L Carbon Dioxide 26.6 (21.0-32.0) mmol/L BUN 32 H (7-18) mg/dL Creatinine 1.04 (0.51-1.17) mg/dL Est Cr Clr Drug Dosing 33.10 mL/min Estimated GFR (MDRD) 51 mL/min Glucose 105 (74-106) mg/dL POC Glucose (65-110) mg/dl Lactic Acid 0.6 (0.4-2.0) mmol/L Uric Acid 5.9 (2.6-7.2) mg/dL Calcium 9.6 (8.5-10.1) mg/dL Magnesium 1.9 (1.8-2.4) mg/dL Total Bilirubin 0.4 (0.2-1.0) mg/dL AST 19 (15-37) U/L ALT 24 (12-78) U/L Alkaline Phosphatase 64 (46-116) IU/L Creatine Kinase 51 46 (26-308) U/L Creatine Kinase Index 1.4 1.7 (0.0-2.5) % CK-MB (CK-2) 0.70 0.80 (0.00-3.60) ng/mL Troponin I 0.000 0.000 (0.000-0.056) ng/mL NT-Pro-B Natriuret Pep 852 H (0-125) pg/mL Total Protein 7.3 (6.4-8.2) g/dL Albumin 3.8 (3.4-5.0) g/dL TSH, Ultra Sensitive 0.992 (0.358-3.740) mIU/mL 06/04/19 Range/Units 03:01 WBC (4.0-10.2) K/uL RBC (3.77-5.09) M/uL Hgb (11.7-15.5) g/dL Hct (34.0-46.0) % MCV (84.0-98.0) fL MCH (28.2-33.3) pg MCHC (31.7-36.0) g/dL RDW (11.2-14.1) % Plt Count (150-350) K/uL Neut % (Auto) (45.0-80.0) % Lymph % (Auto) (10.0-50.0) % [place] % (Auto) (2.0-14.0) % Eos % (Auto) (0.0-5.0) % Baso % (Auto) (0.0-2.0) % Neut # (Auto) (1.40-7.00) K/uL Lymph # (Auto) (0.50-3.50) K/uL [place] # (Auto) (0.00-1.00) K/uL Eos # (Auto) (0.00-0.50) K/uL Baso # (Auto) (0.00-0.20) K/uL PT (9.5-12.0) SEC INR APTT (21.0-31.3) SEC D-Dimer, Quantitative (0-400) ng/mL Sodium (136-145) mmol/L Potassium (3.5-5.1) mmol/L Chloride (98-107) mmol/L Carbon Dioxide (21.0-32.0) mmol/L BUN (7-18) mg/dL Creatinine (0.51-1.17) mg/dL Est Cr Clr Drug Dosing mL/min Estimated GFR (MDRD) mL/min Glucose (74-106) mg/dL POC Glucose 139 H (65-110) mg/dl Lactic Acid (0.4-2.0) mmol/L Uric Acid (2.6-7.2) mg/dL Calcium (8.5-10.1) mg/dL Magnesium (1.8-2.4) mg/dL Total Bilirubin (0.2-1.0) mg/dL AST (15-37) U/L ALT (12-78) U/L Alkaline Phosphatase (46-116) IU/L Creatine Kinase (26-308) U/L Creatine Kinase Index (0.0-2.5) % CK-MB (CK-2) (0.00-3.60) ng/mL Troponin I (0.000-0.056) ng/mL NT-Pro-B Natriuret Pep (0-125) pg/mL Total Protein (6.4-8.2) g/dL Albumin (3.4-5.0) g/dL TSH, Ultra Sensitive (0.358-3.740) mIU/mL Laboratory Tests 06/03/19 06/03/19 06/03/19 Range/Units 17:00 17:00 17:00 WBC 6.1 (4.0-10.2) K/uL RBC 3.77 (3.77-5.09) M/uL Hgb 12.5 (11.7-15.5) g/dL Hct 36.0 (34.0-46.0) % MCV 95.5 (84.0-98.0) fL MCH 33.2 (28.2-33.3) pg MCHC 34.7 (31.7-36.0) g/dL RDW 12.7 (11.2-14.1) % Plt Count 207 (150-350) K/uL Neut % (Auto) 46.7 (45.0-80.0) % Lymph % (Auto) 38.8 (10.0-50.0) % [place] % (Auto) 10.7 (2.0-14.0) % Eos % (Auto) 2.6 (0.0-5.0) % Baso % (Auto) 1.2 (0.0-2.0) % Neut # (Auto) 2.84 (1.40-7.00) K/uL Lymph # (Auto) 2.36 (0.50-3.50) K/uL [place] # (Auto) 0.65 (0.00-1.00) K/uL Eos # (Auto) 0.16 (0.00-0.50) K/uL Baso # (Auto) 0.07 (0.00-0.20) K/uL PT 10.3 (9.5-12.0) SEC INR 1.0 APTT 29.4 (21.0-31.3) SEC D-Dimer, Quantitative 197 (0-400) ng/mL Sodium (136-145) mmol/L Potassium (3.5-5.1) mmol/L Chloride (98-107) mmol/L Carbon Dioxide (21.0-32.0) mmol/L BUN (7-18) mg/dL Creatinine (0.51-1.17) mg/dL Est Cr Clr Drug Dosing mL/min Estimated GFR (MDRD) mL/min Glucose (74-106) mg/dL POC Glucose (65-110) mg/dl Lactic Acid (0.4-2.0) mmol/L Uric Acid (2.6-7.2) mg/dL Calcium (8.5-10.1) mg/dL Magnesium (1.8-2.4) mg/dL Total Bilirubin (0.2-1.0) mg/dL AST (15-37) U/L ALT (12-78) U/L Alkaline Phosphatase (46-116) IU/L Creatine Kinase (26-308) U/L Creatine Kinase Index (0.0-2.5) % CK-MB (CK-2) (0.00-3.60) ng/mL Troponin I (0.000-0.056) ng/mL NT-Pro-B Natriuret Pep (0-125) pg/mL Total Protein (6.4-8.2) g/dL Albumin (3.4-5.0) g/dL TSH, Ultra Sensitive (0.358-3.740) mIU/mL 06/03/19 06/03/19 06/03/19 Range/Units 17:00 17:00 22:32 WBC (4.0-10.2) K/uL RBC (3.77-5.09) M/uL Hgb (11.7-15.5) g/dL Hct (34.0-46.0) % MCV (84.0-98.0) fL MCH (28.2-33.3) pg MCHC (31.7-36.0) g/dL RDW (11.2-14.1) % Plt Count (150-350) K/uL Neut % (Auto) (45.0-80.0) % Lymph % (Auto) (10.0-50.0) % [place] % (Auto) (2.0-14.0) % Eos % (Auto) (0.0-5.0) % Baso % (Auto) (0.0-2.0) % Neut # (Auto) (1.40-7.00) K/uL Lymph # (Auto) (0.50-3.50) K/uL [place] # (Auto) (0.00-1.00) K/uL Eos # (Auto) (0.00-0.50) K/uL Baso # (Auto) (0.00-0.20) K/uL PT (9.5-12.0) SEC INR APTT (21.0-31.3) SEC D-Dimer, Quantitative (0-400) ng/mL Sodium 136 (136-145) mmol/L Potassium 3.7 (3.5-5.1) mmol/L Chloride 99 (98-107) mmol/L Carbon Dioxide 26.6 (21.0-32.0) mmol/L BUN 32 H (7-18) mg/dL Creatinine 1.04 (0.51-1.17) mg/dL Est Cr Clr Drug Dosing 33.10 mL/min Estimated GFR (MDRD) 51 mL/min Glucose 105 (74-106) mg/dL POC Glucose (65-110) mg/dl Lactic Acid 0.6 (0.4-2.0) mmol/L Uric Acid 5.9 (2.6-7.2) mg/dL Calcium 9.6 (8.5-10.1) mg/dL Magnesium 1.9 (1.8-2.4) mg/dL Total Bilirubin 0.4 (0.2-1.0) mg/dL AST 19 (15-37) U/L ALT 24 (12-78) U/L Alkaline Phosphatase 64 (46-116) IU/L Creatine Kinase 51 46 (26-308) U/L Creatine Kinase Index 1.4 1.7 (0.0-2.5) % CK-MB (CK-2) 0.70 0.80 (0.00-3.60) ng/mL Troponin I 0.000 0.000 (0.000-0.056) ng/mL NT-Pro-B Natriuret Pep 852 H (0-125) pg/mL Total Protein 7.3 (6.4-8.2) g/dL Albumin 3.8 (3.4-5.0) g/dL TSH, Ultra Sensitive 0.992 (0.358-3.740) mIU/mL 06/04/19 06/04/19 06/04/19 Range/Units 03:01 03:47 03:47 WBC (4.0-10.2) K/uL RBC (3.77-5.09) M/uL Hgb (11.7-15.5) g/dL Hct (34.0-46.0) % MCV (84.0-98.0) fL MCH (28.2-33.3) pg MCHC (31.7-36.0) g/dL RDW (11.2-14.1) % Plt Count (150-350) K/uL Neut % (Auto) (45.0-80.0) % Lymph % (Auto) (10.0-50.0) % [place] % (Auto) (2.0-14.0) % Eos % (Auto) (0.0-5.0) % Baso % (Auto) (0.0-2.0) % Neut # (Auto) (1.40-7.00) K/uL Lymph # (Auto) (0.50-3.50) K/uL [place] # (Auto) (0.00-1.00) K/uL Eos # (Auto) (0.00-0.50) K/uL Baso # (Auto) (0.00-0.20) K/uL PT (9.5-12.0) SEC INR APTT (21.0-31.3) SEC D-Dimer, Quantitative (0-400) ng/mL Sodium 141 (136-145) mmol/L Potassium 2.9 L* (3.5-5.1) mmol/L Chloride 102 (98-107) mmol/L Carbon Dioxide 27.5 (21.0-32.0) mmol/L BUN 28 H (7-18) mg/dL Creatinine 1.10 (0.51-1.17) mg/dL Est Cr Clr Drug Dosing 31.59 mL/min Estimated GFR (MDRD) 48 mL/min Glucose 117 H (74-106) mg/dL POC Glucose 139 H (65-110) mg/dl Lactic Acid (0.4-2.0) mmol/L Uric Acid (2.6-7.2) mg/dL Calcium 9.6 (8.5-10.1) mg/dL Magnesium (1.8-2.4) mg/dL Total Bilirubin (0.2-1.0) mg/dL AST (15-37) U/L ALT (12-78) U/L Alkaline Phosphatase (46-116) IU/L Creatine Kinase 35 (26-308) U/L Creatine Kinase Index 1.4 (0.0-2.5) % CK-MB (CK-2) 0.50 (0.00-3.60) ng/mL Troponin I 0.000 (0.000-0.056) ng/mL NT-Pro-B Natriuret Pep (0-125) pg/mL Total Protein (6.4-8.2) g/dL Albumin (3.4-5.0) g/dL TSH, Ultra Sensitive (0.358-3.740) mIU/mL OPAL Results - Last 24 hrs: None Med Orders - Current: Current Medications Acetaminophen (Tylenol) 650 mg PO Q4H PRN PRN Reason: Pain Atorvastatin Calcium (Lipitor) 20 mg PO BEDTIME [facility] Last Admin: 06/03/19 21:30 Dose: 20 mg Diltiazem HCl (Cardizem Cd) 120 mg PO QPM [facility] Last Admin: 06/03/19 20:50 Dose: 120 mg Enoxaparin Sodium (Lovenox) 60 mg SUBCUT Q24H [facility] Last Admin: 06/03/19 20:51 Dose: 60 mg Furosemide (Lasix) 40 mg IVPUSH Q8H [facility] Last Admin: 06/03/19 20:50 Dose: 40 mg Losartan Potassium (Cozaar) 100 mg PO DAILY@0800 [facility] Metoprolol Succinate (Toprol Xl) 25 mg PO DAILY@08 [facility] Potassium Chloride (Klor-Con M20) 20 meq PO TID [facility] Sodium Chloride (Saline Flush) 10 ml FLUSH ASDIRECTED PRN PRN Reason: Keep Vein Open Last Admin: 06/03/19 20:52 Dose: 10 ml Sodium Chloride (Saline Flush) 10 ml FLUSH Q12HR PRN PRN Reason: Keep Vein Open Temazepam (Restoril) 15 mg PO BEDTIME PRN PRN Reason: Insomnia Discontinued Medications Aspirin (Aspirin) 324 mg CHEW ONETIME ONE Stop: 06/03/19 17:04 Last Admin: 06/03/19 17:09 Dose: 324 mg Atorvastatin Calcium (Lipitor) 20 mg PO BEDTIME [facility] Diltiazem HCl (Diltiazem) 20 mg IVPUSH ONETIME ONE Stop: 06/03/19 17:58 Last Admin: 06/03/19 18:05 Dose: 10 mg Famotidine (Pepcid) 40 mg IVPUSH ONETIME ONE Stop: 06/03/19 17:04 Last Admin: 06/03/19 17:08 Dose: 40 mg Metoprolol Succinate (Toprol Xl) 50 mg PO DAILY@08 [facility] Non-Formulary Medication (Atorvastatin [Lipitor]) 20 mg PO BEDTIME [facility] Last Admin: 06/03/19 21:39 Dose: Not Given Ticagrelor (Brilinta) 180 mg PO ONETIME ONE Stop: 06/03/19 17:04 Last Admin: 06/03/19 17:09 Dose: 180 mg - Exam Quality Assessment: Reports: Supplemental Oxygen (CPAP while sleeping), DVT Prophylaxis (Subcutaneous Lovenox). Denies: Central Line/PICC, Urine Catheter General: Reports: Alert, Oriented, Cooperative, No Acute Distress HEENT: Reports: Pupils Equal, Pupils Reactive, EOMI, Mucous Membr. Moist/[place] Neck: Reports: Supple, Trachea Midline, No JVD, No Thyromegaly, Carotid Bruit ( Mild bilateral carotid bruits). Denies: Lymphadenopathy Lungs: Reports: Normal Respiratory Effort, Rales (Bilateral basilar ralesmild) . Denies: Rhonchi, Rub, Wheezing Cardiovascular: Reports: No Murmurs, Bradycardia (Borderline), Other (No extrasystoles at time of exam). Denies: Gallops, Rubs GI/Abdominal Exam: Normal Bowel Sounds, Soft, Non-Tender, No Organomegaly, No Distention, No Abnormal Bruit, No Mass, Pelvis Stable, Other (Obese). No: Guarding (Female) Exam: Deferred Rectal (Female) Exam: Deferred Back Exam: Reports: Full Range of Motion, Other (Mild scoliosis). Denies: CVA Tenderness (L), CVA Tenderness (R), Muscle Spasm, Paraspinal Tenderness, Vertebral Tenderness Extremities: Normal Inspection, Normal Range of Motion, Non-Tender, Normal Capillary Refill, Pedal Edema (Improved borderline lymphedema of the lower extremities bilaterally). No: Keyur's Sign Skin: Reports: Warm, Dry, Intact. Denies: Ecchymosis Neurological: Reports: No New Focal Deficit, Other (Negative Babinski's, finger to nose, and pronator rotation tests. No evidence of facial paresis, tongue deviation, orthostasis, etc.. Excellent reverse thought processes. Nonspecific fatigue however no true postictal sedation.) Psy/Mental Status: Reports: Alert, Normal Affect, Normal Mood EKG INTERPRETATION EKG Date: 06/04/19 Time: 03:40 Rhythm: Other (Sinus bradycardia with conversion from previous atrial fibrillation on 06/03/19.) Rate (Beats/Min): 53 [place]: Normal (Left cardiac axis) P-Wave: Enlarged (Moderate diffuse biphasic P waves) QRS: Wide (0.11 seconds representing repolarization changes) ST-T: Normal (Returned T-wave inversion in lead 3 and V1 from previous EKGs prior to admission) QT: Normal LA/PQ Interval: 0.20 seconds works in a returned first-degree AV block with extreme poor R-wave progression in the anterior leads. Comparison: Change From Previous EKG (As above) EKG Interpretation Comments: 1. Sinus bradycardia with converted atrial fibrillation 2. First degree AV block 3. Left atrial enlargement
[2019-06-04] MEDS: Furosemide 40 MG/4 ML VIAL IVPUSH SCH (04:27)
[2019-06-04] MEDS ORDERED: Potassium Chloride 20 MEQ Tab.ER PO ONE (04:38)
[2019-06-04 05:25] VITALS: BP 129/53; PULSE 65
[2019-06-04] MEDS ORDERED: Potassium Chloride 20 MEQ Tab.ER PO SCH (08:00)
[2019-06-04] MEDS ORDERED: Metoprolol Succinate 50 MG Tab.ER PO SCH ×2 (08:00)
[2019-06-04] MEDS ORDERED: Losartan 50 MG Tab PO SCH (08:00)
== END 2019-06-04 05:45 | DRG 308 ==
LOC: LL.ED 16:39 → LL.MS 19:07 → UNDOADMIN 19:07 → LL.MS 19:37 → UNDODISIN 06-04 05:45
PROVIDERS: ADMIT Family Medicine; ATTEND Family Medicine
DX: I48.0 Paroxysmal atrial fibrillation (principal); I50.23 Acute on chronic systolic (congestive) heart failure; I50.9 Heart failure, unspecified; I11.0 Hypertensive heart disease with heart failure; R56.9 Unspecified convulsions; I44.0 Atrioventricular block, first degree; I45.10 Unspecified right bundle-branch block; J84.10 Pulmonary fibrosis, unspecified; R00.1 Bradycardia, unspecified; H91.90 Unspecified hearing loss, unspecified ear; H54.7 Unspecified visual loss; G89.29 Other chronic pain; M81.0 Age-related osteoporosis without current pathological fracture; M54.2 Cervicalgia; E66.9 Obesity, unspecified; I49.3 Ventricular premature depolarization; K21.9 Gastro-esophageal reflux disease without esophagitis; M15.0 Primary generalized (osteo)arthritis; E78.5 Hyperlipidemia, unspecified; J43.1 Panlobular emphysema; T46.1X6A Underdosing of calcium-channel blockers, initial encounter; Z91.128 Patient's intentional underdosing of medication regimen for other reason; Z91.14 Patient's other noncompliance with medication regimen; Z88.1 Allergy status to other antibiotic agents; I49.1 Atrial premature depolarization; G47.30 Sleep apnea, unspecified; E78.00 Pure hypercholesterolemia, unspecified; E87.6 Hypokalemia; Z79.82 Long term (current) use of aspirin; Z86.010 Personal history of colon polyps; Z90.49 Acquired absence of other specified parts of digestive tract; Z79.899 Other long term (current) drug therapy; Z88.0 Allergy status to penicillin; Z88.2 Allergy status to sulfonamides; Z88.8 Allergy status to other drugs, medicaments and biological substances
CPT/HCPCS: 36415; 70450; 71045; 80048; 80053; 82550; 82553; 82962; 83605; 83735; 83880; 84146; 84443; 84484; 84550; 85025; 85379; 85610; 85730; 93005; 96374; 99285-25; A9270-GY; J1650; J1940; J3490

== ENCOUNTER 2019-08-22 12:18 | Emergency (ER) | payer MEDICARE, OTHER ==
--- NOTE | 2019-08-22 14:15 | EDM.PDOC ---
ED HPI GENERAL MEDICAL PROBLEM - General Chief Complaint: Cardiovascular Problem Stated Complaint: chest pressure afib Time Seen by Provider: 08/22/19 12:35 Source of Information: Reports: Patient History Limitations: Reports: No Limitations - History of Present Illness INITIAL COMMENTS - FREE TEXT/NARRATIVE: Pt with hx/o intermittent Afib who presents with persistent Afib beginning last PM Hd chest pressure 8/10 last PM None currently Was recently taken off her metoprolol last week Has been seen by cardiology in past No fever No cough No trauma No travel hx Onset: Gradual Duration: Day(s):, Intermittent Location: Reports: Chest Heartburn Pain Score (Numeric/FACES): 2 - Related Data Allergies Allergy/AdvReac Type Severity Reaction Status Date / Time albuterol Allergy Vomiting Verified 08/22/19 12:57 [From Proventil HFA] nitrofurantoin Allergy Rash Verified 08/22/19 12:57 macrocrystalline [From Macrobid] Penicillins Allergy Rash Verified 08/22/19 12:57 sulfamethoxazole Allergy Itching Verified 08/22/19 12:57 [From Bactrim] Home Meds: Home Meds Calcium Carbonate/Vitamin D3 [Calcium 500 + Vit D 400] 2 tab PO DAILY 06/05/13 [ History] Ranitidine [Zantac] 150 mg PO BID 06/05/13 [History] atorvaSTATin [Lipitor] 20 mg PO BEDTIME 06/05/13 [History] Losartan Potassium [Cozaar] 100 mg PO DAILY 11/28/16 [History] NIFEdipine [Nifedipine ER] 60 mg PO DAILY@2100 03/31/19 [History] hydroCHLOROthiazide [Hydrochlorothiazide] 25 mg PO DAILY 03/31/19 [History] Apixaban [Eliquis] 5 mg PO BID 08/22/19 [History] Diltiazem HCl [Diltiazem 24Hr ER] 120 mg PO DAILY 08/22/19 [History] Furosemide 20 mg PO DAILY PRN 08/22/19 [History] Magnesium Oxide 250 mg PO DAILY 08/22/19 [History] Past Medical History HEENT History: Reports: Cataract, Hard of Hearing, Impaired Vision, Otitis Media , Sinusitis Other HEENT History: She wears glasses. Mild bilateral presbycusis with no current hearing therapy. Recurrent otitis media with no previous PE tubes therapy. Cardiovascular History: Reports: Afib, Arrhythmia, Heart Failure, Heart Murmur, High Cholesterol, Hypertension, Syncope Other Cardiovascular History: Recurrent atrial fibrillation since colonoscopy on 07/28/16 with no current anticoagulation therapy. First-degree AV block and complete right bundle branch block. Carotid occlusive disease by MRI of the head on 02/11/09. Syncopal episode related to vasovagal reaction. Mild mitral valve insufficiency and left atrial enlargement by echocardiogram with aortic valve calcification without stenosis. D-dimer elevation in November 2016 with negative workup as below. Respiratory History: Reports: Bronchitis, Recurrent, COPD, Intubation, Previous , Pulmonary Fibrosis, Sleep Apnea, Other (See Below) Other Respiratory History: She has been compliant with CPAP therapy since January 2019. Benign bilateral pulmonary nodules. 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 Serrated adenomatous polyps in the ascending colon 2 removed via colonoscopy in 2014. Rectal tubulovillous adenoma removed on 06/06/13. Sigmoid diverticulosis. Benign hepatic cysts. Benign hyperplastic polyp of the stomach and rectal tubulovillous adenoma from the rectum removed on 12/06/12. Genitourinary History: Reports: None SHIPBOARD INTELLIGENCE ANALYST History: Reports: Polycystic Ovaries, Other SHIPBOARD INTELLIGENCE ANALYST History: Ovarian cysts. Menopause in her late 40s. Full term without complications during pregnancies or deliveries. Musculoskeletal History: Reports: Arthritis, Back Pain, Chronic, Fracture, Neck Pain, Chronic, Osteoarthritis, Osteoporosis, Other (See Below) Other Musculoskeletal History: L1-L2 vertebral body compression fractures Distal fourth pharyngeal finger fracture of the right hand in her 40s. Right partial rotator cuff tear by MRI on 04/14/10. Neurological History: Reports: Headaches, Chronic, Seizure, Other (See Below) Other Neuro History: Questionable nonspecific seizure versus vasovagal reaction. Psychiatric History: Reports: None Endocrine/Metabolic History: Reports: Obesity/BMI 30+, Osteopenia, Osteoporosis , Vitamin D Deficiency, Other (See Below) Other Endocrine/Metabolic History: Hypokalemia, hyponatremia, hypomagnesemia. Hematologic History: Reports: Blood Transfusion(s), Other (See Below) Other Hematologic History: Auto transfusion with total knee arthroplasties as below. Immunologic History: Reports: None Oncologic (Cancer) History: Reports: None Dermatologic History: Reports: Psoriasis, Other (See Below) Other Dermatologic History: Seborrheic keratosis. - Infectious Disease History Infectious Disease History: Reports: Chicken Pox, Measles, Mumps, Pertussis ( Whooping Cough), Shingles - Past Surgical History Head Surgeries/Procedures: Reports: None HEENT Surgical History: Reports: Cataract Surgery, Oral Surgery, Other (See Below) Other HEENT Surgeries/Procedures: Bilateral cataract surgery in about 2014. [place] teeth extraction 4 in her 40s. Cardiovascular Surgical History: Reports: None Respiratory Surgical History: Reports: None GI Surgical History: Reports: Cholecystectomy, Colonoscopy, EGD, Polypectomy, Other (See Below) Other GI Surgeries/Procedures: Open Cholecystectomy concomitant with ovarian cyst removal in the . Colonoscopy with polypectomies on 07/28/16 and . EGD and colonoscopy on 04/19/18, 02/26/15, and 12/06/12. Appendectomy in 1962. Female Surgical History: Reports: Cystoscopy, D&C, Oophorectomy, Other (See Below) Other Female Surgeries/Procedures: Right ovarian cyst excision in the . Cystoscopy in the early 1999. D&C on 12/01/10 secondary to thickened endometrium by ultrasound. Endocrine Surgical History: Reports: None Musculoskeletal Surgical History: Reports: Carpal Tunnel, Joint Replacement, Knee Replacement, Other (See Below) Other Musculoskeletal Surgeries/Procedures:: Tendon repair of partial tear of the left posterior tibial tendon in 2015. Right carpal tunnel release in the . Bilateral hemiarthroplasty of her knees on 11/29/07. Oncologic Surgical History: Reports: None Dermatological Surgical History: Reports: Skin Biopsy, Other (See Below) - Past Imaging History Past Imaging History: Reports: Cardiac Echo (02/1719 with ejection fraction of 55 60 percent with otherwise findings as above. Previous echocardiogram on .), Carotid US (02/13/14.), CAT Scan (Negative CTA of the chest for PE on . CT of the brain on 11/28/16. CT of the facial bones and sinuses on 09/01/15. CT of the abdomen and pelvis on 01/20/15. CT of the head on 01/02/08.), DEXA Scan ( and 01/27/06..), HIDA Scan (Normal on 12/20/12.), Mammogram (Last on 08/07/18. ), MRA (Brain on 02/11/09 positive for carotid occlusive disease as above.), MRI (Left ankle on 03/07/16. Right shoulder on 04/14/10. MRI C-spine and right shoulder on 04/14/10.), Sleep Study (Including CPAP titration in January 2019.), Stress Testing (Negative Cardiolite stress test on 03/03/11 with ejection fraction of 75%.), Ultrasound (Gallbladder ultrasound with Kinevac on 01/28/15 with previous gallbladder ultrasound on 12/06/12. Pelvic ultrasound on 11/12/10. Abdominal ultrasound on 04/09/10. Soft tissue ultrasound on 10/13/06.), Venous Doppler (Legs bilaterally negative on 11/29/16) Social & Family History - Family History HEENT: Reports: None Cardiac: Reports: Arrhythmia, Blood Clots/VTE/DVT, CAD, Heart Failure, Heart Murmur, High Cholesterol, Hypertension, RI, Pacemaker, Stent, Other (See Below) Other Cardiac Family History: Mother with fatal heart disease at age 94. Sisters 2 with valve replacement one in her 60s see other in the 80s with another sister having valvular disease not requiring surgery with no history of rheumatic fever in any of these siblings. Sister with history of RI and PTCA/ stent her 70s and another sister having a PTCA/stent also in her 70s with subsequent Fatal RI in Her 80s.. Sister with fatal blood clots during pacemaker placement in her late 70s. Brother with RI and fatal CHF at age 80. All of the above family members also suffered from hyperlipidemia and hypertension. Respiratory: Reports: Asthma, COPD, PE, Sleep Apnea, Other (See Below) Other Respiratory Family Hisory: Brother with COPD likely secondary to tobacco use. Sisters 2 with sleep apnea. Possible intraoperative PE and pacemaker placement and sister as above. Asthma with paternal aunt and paternal uncle. : Reports: None OBGYN: Reports: None Musculoskeletal: Reports: None Neurological: Reports: CVA, Other (See Below) Other Neurological Family History: Father with recurrent CVAs fatal at age 89. Psychiatric: Reports: None Endocrine/Metabolic: Reports: Diabetes, type II, IDDM, Other (See Below) Other Endocrine/Metabolic Family History: Mother and sister with IDDM. Sisters 2 with AODM currently diet controlled. AODM and 3 maternal aunts and 2 maternal uncles. Hematologic: Reports: None Immunologic: Reports: None Dermatologic: Reports: None Oncologic: Reports: Breast, Colon, Esophageal, Metastatic, Pancreatic, Other ( See Below) Other Oncologic Family History: Sister with fatal breast, pancreatic, and colon cancer in her 80s. Sisters 2 with colon cancer in their 70s. Brother with fatal esophageal cancer with previous history of Harris's esophagitis in his 80s with history of tobacco use. Maternal grandparents with fatal pancreatic cancer in their 70s. - Tobacco Use Smoking Status *Q: Never Smoker Second Hand Smoke Exposure: No - Caffeine Use Caffeine Use: Reports: Coffee - Recreational Drug Use Recreational Drug Use: No - Living Situation & Occupation Living situation: Reports: (1957, 4 children), with Family () Occupation: Retired ([employer] ) ED ROS GENERAL - Review of Systems Review Of Systems: See Below Respiratory: Reports: No Symptoms Cardiovascular: Reports: Chest Pain, Palpitations GI/Abdominal: Reports: No Symptoms ED EXAM, GENERAL - Physical Exam Exam: See Below Exam Limited By: No Limitations General Appearance: Alert, WD/WN, No Apparent Distress Neck: Supple Respiratory/Chest: Lungs Clear Cardiovascular: Other (Irregular) GI/Abdominal: Soft, Non-Tender Extremities: Pedal Edema Course - Vital Signs Last Recorded V/S: Last Vital Signs Temp 96.6 F L 08/22/19 12:30 Pulse 79 08/22/19 12:30 Resp 20 08/22/19 12:30 BP 140/89 08/22/19 12:30 Pulse Ox 98 08/22/19 12:30 - Orders/Labs/Meds Orders: Active Orders 24 hr Category Date Time Status EKG Documentation Completion [RC] ASDIRECTED Care 08/22/19 12:36 Active Chest 1V Frontal [CR] Stat Exams 08/22/19 12:36 Taken Labs: Laboratory Tests 08/22/19 08/22/19 Range/Units 13:10 13:10 WBC 5.0 (4.0-10.2) K/uL RBC 4.14 (3.77-5.09) M/uL Hgb 14.0 (11.7-15.5) g/dL Hct 39.2 (34.0-46.0) % MCV 94.7 (84.0-98.0) fL MCH 33.8 H (28.2-33.3) pg MCHC 35.7 (31.7-36.0) g/dL RDW 11.7 (11.2-14.1) % Plt Count 220 (150-350) K/uL Neut % (Auto) 40.3 L (45.0-80.0) % Lymph % (Auto) 43.7 (10.0-50.0) % [place] % (Auto) 12.0 (2.0-14.0) % Eos % (Auto) 3.0 (0.0-5.0) % Baso % (Auto) 1.0 (0.0-2.0) % Neut # (Auto) 2.02 (1.40-7.00) K/uL Lymph # (Auto) 2.19 (0.50-3.50) K/uL [place] # (Auto) 0.60 (0.00-1.00) K/uL Eos # (Auto) 0.15 (0.00-0.50) K/uL Baso # (Auto) 0.05 (0.00-0.20) K/uL Sodium 137 (136-145) mmol/L Potassium 3.3 L (3.5-5.1) mmol/L Chloride 99 (98-107) mmol/L Carbon Dioxide 29.0 (21.0-32.0) mmol/L BUN 32 H (7-18) mg/dL Creatinine 1.06 (0.51-1.17) mg/dL Est Cr Clr Drug Dosing 32.47 mL/min Estimated GFR (MDRD) 50 mL/min Glucose 115 H (74-106) mg/dL Calcium 10.4 H (8.5-10.1) mg/dL Total Bilirubin 0.6 (0.2-1.0) mg/dL AST 19 (15-37) U/L ALT 25 (12-78) U/L Alkaline Phosphatase 74 (46-116) IU/L Troponin I 0.000 (0.000-0.056) ng/mL Total Protein 7.6 (6.4-8.2) g/dL Albumin 4.2 (3.4-5.0) g/dL - Re-Assessments/Exams Free Text/Narrative Re-Assessment/Exam: 08/22/19 14:12 Pt in Afib with rate in 80's See lab D/W Dr Carvalho On-call hospitalist [facility] Suggests follow up with instructional systems designer for further medical management Pt on Eliquis and is rate controlled To ER if worse Departure - Departure Time of Disposition: 14:15 Disposition: Home, Self-Care 01 Clinical Impression: Atrial fibrillation Qualifiers: Atrial fibrillation type: paroxysmal Qualified Code(s): I48.0 - Paroxysmal atrial fibrillation Referrals: Bety Erickson, [employer] [Primary Care Provider] - Additional Instructions: Continue usual medications Follow up in clinic and with cardiology Sepsis Event Note - Evaluation Sepsis Screening Result: No Definite Risk - Focused Exam Vital Signs: Vital Signs Temp Pulse Resp BP Pulse Ox Pulse Ox 08/22/19 12:30 96.6 F L 79 20 140/89 98 08/22/19 12:22 100 08/22/19 12:20 96.6 F L 87 20 139/64 100 Date Exam was Performed: 08/22/19 Time Exam was Performed: 14:10 - My Orders Last 24 Hours: My Active Orders 08/22/19 12:36 EKG Documentation Completion [RC] ASDIRECTED Chest 1V Frontal [CR] Stat - Assessment/Plan Last 24 Hours: My Active Orders 08/22/19 12:36 EKG Documentation Completion [RC] ASDIRECTED Chest 1V Frontal [CR] Stat
[2019-08-22 15:26] VITALS: BP 132/63; PULSE 73
== END 2019-08-22 14:35 | disposition home or self-care (01) ==
LOC: LL.ED 12:18
DX: I48.0 Paroxysmal atrial fibrillation (principal); I11.0 Hypertensive heart disease with heart failure; I50.9 Heart failure, unspecified; K21.9 Gastro-esophageal reflux disease without esophagitis; Z79.899 Other long term (current) drug therapy; Z88.8 Allergy status to other drugs, medicaments and biological substances; Z88.2 Allergy status to sulfonamides
CPT/HCPCS: 36415; 71045; 80053; 84484; 85025; 93005; 99285-25

== ENCOUNTER 2020-11-12 08:55 | Day surgery (SDC) | payer MEDICARE, OTHER ==
[~2020-11-12 08:55] MED LIST: Lactated Ringers 1,000 ML IV SCH; Propofol 200 MG/20 ML SDV ONE; Sodium Chloride 0.9% 10 ML Syringe FLUSH PRN
[2020-11-12] MEDS ORDERED: Propofol 200 MG/20 ML SDV ONE ×2 (10:00→10:01)
[2020-11-12] MEDS ORDERED: Lidocaine 2% 5 ML SDV ONE (10:01)
--- NOTE | 2020-11-12 10:06 | PCM.PN ---
- General Info Date of Service: 11/12/20 - Review of Systems Systems Review Comment:: 80-year-old female with history of Harris's esophagus as well as history of polyps here for EGD and colonoscopy. She has noticed recent symptoms of abdominal bloating as well as loose stools. The patient is medically stable to proceed today. Her recent history and physical is reviewed and no significant changes are noted. I have discussed the proposed EGD and colonoscopy with the patient. Her questions were answered. She agrees to proceed. She accepts risks. - Patient Data Vitals - Most Recent: Last Vital Signs Temp 96.5 F L 11/12/20 09:38 Pulse 60 11/12/20 09:38 Resp 18 11/12/20 09:38 BP 145/62 H 11/12/20 09:38 Pulse Ox 100 11/12/20 09:38 Weight - Most Recent: 88.451 kg Med Orders - Current: Current Medications Lactated Ringer's (Ringers, Lactated) 1,000 mls @ 125 mls/hr IV ASDIRECTED FERN Last Admin: 11/12/20 09:27 Dose: 125 mls/hr Documented by: Sodium Chloride (Sodium Chloride 0.9% 10 Ml Syringe) 10 ml FLUSH ASDIRECTED PRN PRN Reason: Keep Vein Open Discontinued Medications Propofol (Propofol 200 Mg/20 Ml Sdv) Confirm Administered Dose 400 mg .ROUTE .STK-MED ONE Stop: 11/12/20 08:25 Propofol (Propofol 200 Mg/20 Ml Sdv) Confirm Administered Dose 200 mg .ROUTE .STK-MED ONE Stop: 11/12/20 10:01 Sepsis Event Note - Focused Exam Vital Signs: Vital Signs Temp Pulse Resp BP Pulse Ox 11/12/20 09:38 96.5 F L 60 18 145/62 H 100 - Problem List Review Problem List Initiated/Reviewed/Updated: Yes - Assessment Assessment:: History of Harris's esophagus History of colon polyps Abdominal bloating Change in bowel habits - Plan Plan:: EGD and colonoscopy
--- NOTE | 2020-11-12 10:51 | PCM.OPNOTE ---
- General Post-Op/Procedure Note Date of Surgery/Procedure: 11/12/20 Operative Procedure(s): EGD with biopsy. Colonoscopy with Polypectomy and Biopsy Findings: Mild reflux esophagitis Stomach and Duodenum otherwise appear normal Small transverse colon polyp Moderate Sigmoid Diverticulosis Colon otherwise appears normal Pre Op Diagnosis: History of Harris's Esophagus and Colon Polyps Post-Op Diagnosis: Reflux Esophagitis. Colon Polyp. Sigmoid Diverticulosis Anesthesia Technique: [facility] Primary Surgeon: Sean Orellana Pathology: Biopsies of esophagus, stomach, duodenum and colon Colon Polyp EBL in mLs: 4 Complications: None Condition: Good
[2020-11-12 15:09] VITALS: BP 122/53; PULSE 59
--- NOTE | 2020-11-12 15:11 | OR ---
Date of Procedure: 11/12/2020 PREOPERATIVE DIAGNOSIS: History of Harris's esophagus and colon polyps. POSTOPERATIVE DIAGNOSIS: Reflux esophagitis, colon polyp, and sigmoid diverticulosis. OPERATION PERFORMED: Esophagogastroduodenoscopy with biopsy and colonoscopy with biopsy and polypectomy. INDICATIONS FOR SURGERY: This 80-year-old female has a known history of Harris's esophagus as well as colon polyps. She was having increasing symptoms of abdominal bloating as well as some loose stools. FINDINGS: On upper endoscopy, the patient does have irregularity of the GE junction approximately 34 cm from the incisors. The irregularity extends approximately 1 cm up from the area of the GE junction. The remainder of the esophagus appears normal. The patient's gastric and duodenal mucosa appeared normal. In the patient's transverse colon, she has a 6-mm sessile polyp. There is also a moderate degree of diverticulosis of the sigmoid colon, which does not appear to be acutely inflamed, or otherwise, complicated. The remainder of the colon appears normal. DESCRIPTION OF PROCEDURE: The patient was taken to the operating room. She was given intravenous sedation, and her throat was topically anesthetized. With her in the left lateral decubitus position, the Olympus gastroscope was advanced through a mouth guard into the oral cavity. Under direct visualization, the scope was advanced through the oropharynx and into the esophagus and then the scope was advanced through the esophagus and stomach down into the duodenum where examination to the third portion was performed. Because of the patient's symptoms, random biopsies in the duodenum were taken although the duodenal mucosa appeared normal. The scope was withdrawn back into the stomach where full examination including retroflexed examination of the fundus was performed. Biopsies of the antral mucosa were taken to rule out H. pylori. The GE junction was carefully examined, and because of the irregularity and her history of Harris's esophagus, biopsies in the area of the GE junction were taken. The scope was then withdrawn, and attention was turned to colonoscopy. Digital rectal exam was performed showing no rectal masses. The Olympus colonoscope was inserted into the rectum. Retroflexed examination of the rectal canal was performed. The scope was then carefully advanced to the transverse colon where the above-described polyp was identified. This was removed with a cautery snare and retrieved. The scope was then advanced to the cecum, which was viewed including the ileocecal valve and appendiceal orifice. The light was also noted to transilluminate the abdominal wall in the right lower quadrant. The patient's colon was somewhat tortuous and reaching the cecum was assisted by hand pressure and lying the patient in the supine position. After examining the cecum, the scope was slowly withdrawn sequentially re-examining the colonic segments. Because of her history of loose stools, random biopsies of the colon mucosa were taken in the right and left sides. After the colon had been thoroughly examined, the scope was removed and the patient was taken from the operating room in satisfactory condition. ESTIMATED BLOOD LOSS: 4 mL. COMPLICATIONS: None. PROGNOSIS: Good. RUTH ANN Orellana MD /[id number]
== END 2020-11-12 12:00 | disposition home or self-care (01) ==
LOC: LL.SDS 08:55
PROVIDERS: ATTEND Surgery
DX: D12.3 Benign neoplasm of transverse colon (principal); K57.30 Diverticulosis of large intestine without perforation or abscess without bleeding; K31.89 Other diseases of stomach and duodenum; I78.1 Nevus, non-neoplastic; K21.00 Gastro-esophageal reflux disease with esophagitis, without bleeding; I10 Essential (primary) hypertension; Z88.8 Allergy status to other drugs, medicaments and biological substances; Z88.0 Allergy status to penicillin; Z79.899 Other long term (current) drug therapy; Z87.19 Personal history of other diseases of the digestive system; Z20.822 Contact with and (suspected) exposure to COVID-19
CPT/HCPCS: 00813; 43239; 45380; 45385; 88305; J2704; J7120; U0002

== ENCOUNTER 2020-12-06 22:09 | Observation (INO) | payer MEDICARE, OTHER ==
--- NOTE | 2020-12-06 22:13 | EDM.PDOC ---
ED HPI GENERAL MEDICAL PROBLEM - General Chief Complaint: Chest Pain Stated Complaint: chest pain Time Seen by Provider: 12/06/20 22:09 Source of Information: Reports: Patient, Family (), Old Records ([facility] chart/EMR) History Limitations: Reports: No Limitations - History of Present Illness INITIAL COMMENTS - FREE TEXT/NARRATIVE: The patient was brought to the emergency room via private automobile by her for evaluation of 01/02 left-sided sharp chest pain with radiation to the neck, jaws, left shoulder, and left arm with paresthesias also present in her left arm. Symptoms started about 7 PM this evening and have lasted only for a few seconds, however have reoccurred frequently since that time. She is having some occasional episodes of dizziness with the above symptoms. The patient denies any chest pressure, heart flutter, orthostasis, orthopnea, diaphoresis, recent decreased exercise tolerance, or any other anginal-type symptoms. No recent history of abdominal pain, nausea, diarrhea, melena, gross hematochezia, or any food intolerance, including fatty foods, etc., although she has been having some problems with moderate heartburn during the last couple of weeks with recent EGD and colonoscopy in October as below. She did have a normal bowel movement earlier this morning and denies any gross hematuria, colic, or the UTI symptoms. The patient also denies any recent fever, cough, wheezing, dyspnea, etc.. No history of recent headaches, visual changes, diplopia, change in mental status, or other change in neurological status. Onset: Today, Sudden Onset Date: 12/06/20 Onset Time: 19:00 Duration: Intermittent Location: Reports: Neck, Chest, Upper Extremity, Left, Radiates to (As above). Denies: Head, Face, Abdomen, Back Quality: Reports: Same as Previous Episode, Sharp Severity: Moderate Improves with: Reports: None Worsens with: Reports: None Context: Reports: Other (As above). Denies: Sick Contact, Trauma Associated Symptoms: Reports: Chest Pain (As above). Denies: Confusion, Cough, Diaphoresis, Fever/Chills, Headaches, Loss of Appetite, Malaise, Nausea/Vomiting, Rash, Seizure, Shortness of Breath, Syncope, Weakness Treatments TRAIN STARTER: Reports: Other (see below) (None) Chest Pain Score (Numeric/FACES): 7 - Related Data Allergies Allergy/AdvReac Type Severity Reaction Status Date / Time albuterol Allergy Vomiting Verified 12/06/20 22:17 [From Proventil HFA] nitrofurantoin Allergy Rash Verified 12/06/20 22:17 macrocrystalline [From Macrobid] Penicillins Allergy Rash Verified 12/06/20 22:17 sulfamethoxazole Allergy Itching Verified 12/06/20 22:17 [From Bactrim] Home Meds: Home Meds Calcium Carbonate/Vitamin D3 [Calcium 500 + Vit D 400] 2 tab PO DAILY 06/05/13 [History] atorvaSTATin [Lipitor] 20 mg PO BEDTIME 06/05/13 [History] Apixaban [Eliquis] 2.5 mg PO BID 08/22/19 [History] Magnesium Oxide 250 mg PO DAILY 08/22/19 [History] Pantoprazole Sodium [Protonix] 20 mg PO DAILY 11/11/20 [History] Diltiazem HCl [Diltiazem 24Hr Cd] 180 mg PO DAILY 11/12/20 [History] Losartan [Cozaar] 50 mg PO DAILY 11/12/20 [History] Spironolactone [Aldactone] 25 mg PO DAILY 11/12/20 [History] Multivitamin 1 tab PO DAILY 12/06/20 [History] Past Medical History HEENT History: Reports: Cataract, Hard of Hearing, Impaired Vision, Otitis Media, Sinusitis. Denies: Allergic Rhinitis, Glaucoma, Macular Degeneration, Retinal Detachment Other HEENT History: She wears glasses. Mild bilateral presbycusis with no c urrent hearing therapy. Recurrent otitis media with no previous PE tubes therapy. Cardiovascular History: Reports: Afib, Arrhythmia, Cardiomyopathy, Heart Failure, High Cholesterol, Hypertension, Syncope. Denies: Aneurysm, Blood Clots/VTE/DVT, CAD, Heart Murmur, VA, PVD Other Cardiovascular History: Recurrent atrial fibrillation since colonoscopy on 07/28/16 with current Eliquis therapy. PVCs, PACs, first-degree AV block and complete right bundle branch block. Carotid occlusive disease by MRI of the head on 02/11/09. Syncopal episode related to vasovagal reaction with additional history of recurrent syncope including at time of atrial fibrillation and CHF on 06/03/2019. Mild mitral valve insufficiency and left atrial enlargement by echocardiogram with aortic valve calcification without stenosis. D-dimer elevation in November 2016 with negative workup as below. Respiratory History: Reports: COPD, Intubation, Previous, Sleep Apnea. Denies: Asthma, Bronchitis, Recurrent, Intubation, Difficult, PE, Pneumonia, Recurrent, Pneumothorax, Pulmonary Fibrosis, TB Other Respiratory History: She has been compliant with CPAP therapy since January 2019. Benign bilateral pulmonary nodules. Gastrointestinal History: Reports: Colon Polyp, Diverticulosis, GERD, Other (See Below). Denies: Bowel Obstruction, Celiac Disease, Cholelithiasis, Chronic Constipation, Chronic Diarrhea, Fecal Incontinence, GI Bleed, Hepatitis, Helicobacter Pylori, Hiatal Hernia, Inflammatory Bowel Disease, Irritable Bowel Syndrome, Jaundice, Pancreatitis, PUD Other Gastrointestinal History: Harris Esophagus. Tubular adenoma of the transverse colon removed via colonoscopy in October 2020 as below. Genitourinary History: Reports: None. Denies: Acute Renal Failure, Chronic Renal Insuffiency, Renal Calculus, STD, Urinary Incontinence, UTI, Recurrent SAFETY EQUIPMENT TESTING SPECIALIST History: Reports: Polycystic Ovaries, . Denies: Dysfunctional Uterine Bleeding, Endometriosis, Spontaneous : 4 Para: 4 LMP (Approximate): Other (See Below) Other SAFETY EQUIPMENT TESTING SPECIALIST History: Ovarian cysts. Menopause in her late 40s. Full term without complications during pregnancies or deliveries. Musculoskeletal History: Reports: Arthritis, Back Pain, Chronic, Fracture, Neck Pain, Chronic, Osteoarthritis, Osteoporosis, Other (See Below). Denies: Gout, RA, SLE Other Musculoskeletal History: L1-L2 vertebral body compression fractures Distal fourth pharyngeal finger fracture of the right hand in her 40s. Right partial rotator cuff tear by MRI on 04/14/10. Neurological History: Reports: Headaches, Chronic, Seizure, Other (See Below). Denies: Cerebral Aneurysms, Concussion, CVA, Head Trauma, Migraines, MS, Parkinson's, TIA, Vertigo Other Neuro History: Questionable nonspecific seizure versus vasovagal reaction. Psychiatric History: Reports: None. Denies: Abuse, Victim of, ADD, ADHD, Addiction, Anxiety, Depression, Psych Hospitalization(s), PTSD, Suicide Attempt, Suicidal Ideation Endocrine/Metabolic History: Reports: Hypokalemia, Hypomagnesemia, Obesity/BMI 30+, Vitamin D Deficiency. Denies: Diabetes, Gestational, Diabetes, Type I, Diabetes, Type II, Diabetes Mellitus, Type 3c, Hypothyroidism Other Endocrine/Metabolic History: Hyperglycemia without true diabetes. Hyponatremia. Hematologic History: Reports: Blood Transfusion(s), Other (See Below). Denies: Anemia, B12 Deficiency, Iron Deficiency Other Hematologic History: Auto transfusion with total knee arthroplasties as below. Immunologic History: Reports: None. Denies: AIDS, HIV, SLE Oncologic (Cancer) History: Reports: None. Denies: Basal Cell Carcinoma, Breast, Cervix, Colon, Esophageal, Hodgkin's Lymphoma, Leukemia, Lymphoma, Malignant Melanoma, Metastatic, Non-Hodgkin's Lymphoma, Ovarian, Squamous Cell Carcinoma, Uterine Dermatologic History: Reports: Psoriasis, Other (See Below). Denies: Eczema Other Dermatologic History: Seborrheic keratosis. - Infectious Disease History Infectious Disease History: Reports: Chicken Pox, Measles, Mumps, Pertussis (Whooping Cough), Shingles. Denies: C-Difficile, Helicobacter Pylori, Meningitis, Mononucleosis, Novel Coronavirus (Second Moderna immunization in July 2020.), Rheumatic Fever, Rubella, Scarlet Fever, TB, VRE - Past Surgical History Head Surgeries/Procedures: Reports: None HEENT Surgical History: Reports: Cataract Surgery, Oral Surgery, Other (See Below). Denies: Adenoidectomy, Eye Surgery, Laser Surgery, LASIK, Myringotomy w Tube(s), Naso-Sinus Surgery, Tonsillectomy Other HEENT Surgeries/Procedures: Bilateral cataract surgery in about 2014. [place] teeth extraction x4 in her 40s. Cardiovascular Surgical History: Reports: None. Denies: Varicose Respiratory Surgical History: Reports: None. Denies: Thoracentesis GI Surgical History: Reports: Appendectomy, Cholecystectomy, Colonoscopy, EGD, Polypectomy, Other (See Below). Denies: Hernia, Abdominal, Hernia, Inguinal, Hernia Repair/Other Other GI Surgeries/Procedures: Last EGD and colonoscopy with negative serial biopsies and negative H. pylori evaluation on 11/12/2020. Excision of tubular adenoma from the transverse colon at that time. Open cholecystectomy with concomitant ovarian cyst removal in the 1960s. Multiple previous colonoscopies with polypectomies on 07/28/2016 and 06/06/2013. EGD and colonoscopy on 04/19/2018, 02/26/2015, and 12/06/2012. Appendectomy in 1962. Female Surgical History: Reports: Cystoscopy, D&C, Oophorectomy, Other (See Below). Denies: Breast Biopsy, Section, Hysterectomy, Salpingo- Oophorectomy, Tubal Ligation Other Female Surgeries/Procedures: Right ovarian cyst excision in the 1960s. Cystoscopy in early 1999. D&C on 12/01/2010 secondary to thickened endometrium by ultrasound. Endocrine Surgical History: Reports: None. Denies: Thyroid Biopsy Neurological Surgical History: Reports: None. Denies: C-Spine, Discectomy, Laminectomy, Lumbar Spine, Sacral Spine, Spinal Fusion, Thoracic Spine, Vertebroplasty Musculoskeletal Surgical History: Reports: Carpal Tunnel, Joint Replacement, Knee Replacement, Other (See Below). Denies: Arthroscopic Procedure, ORIF, Shoulder Surgery Other Musculoskeletal Surgeries/Procedures:: Tendon repair of partial tear of the left posterior tibial tendon in 2016. Right carpal tunnel release in the . Bilateral hemiarthroplasty of her knees on 11/29/2007. Oncologic Surgical History: Reports: None Dermatological Surgical History: Reports: Skin Biopsy, Other (See Below) Other Dermatological Surgeries/Procedures: Excision of seborrheic keratosis from the right upper arm and left thigh on 08/13/2018. Excision of seborrheic keratosis from the right cheek region on 11/08/2017. Excision of borderline psoriasis from the right buttocks on 05/03/2018. - Past Imaging History Past Imaging History: Reports: Cardiac Echo (02/1719 with ejection fraction of 5560 percent with otherwise findings as above. Previous echocardiogram on 08/23/16.), Carotid US (02/13/14.), CAT Scan (Negative CTA of the chest for PE on 11/28/16. CT of the brain on 06/04/2019 and 11/28/16. CT of the facial bones and sinuses on 09/01/15. CT of the abdomen and pelvis on 11/18/[address] 01/20/[address]. CT of the head on 01/02/08.), DEXA Scan (12/10/13 and 01/27/06..), HIDA Scan (Normal on 12/20/12.), Mammogram (Last on 01/07/2020.), MRA (Brain on 02/11/09 positive for carotid occlusive disease as above.), MRI (Left ankle on 03/07/16. Right shoulder on 04/14/10. MRI C-spine and right shoulder on 04/14/10.), Sleep Study (Including CPAP titration in January 2019.), Stress Testing (Negative Cardiolite stress test on 03/03/11 with ejection fraction of 75%.), Ultrasound (Gallbladder ultrasound with Kinevac on 01/28/15 with previous gallbladder ultrasound on 12/06/12. Pelvic ultrasound on 11/12/10. Abdominal ultrasound on 04/09/10. Soft tissue ultrasound on 10/13/06.), Venous Doppler (Legs bilaterally negative on 11/29/16) Social & Family History - Family History HEENT: Reports: None. Denies: Glaucoma, Macular Degeneration, Retinal Detachment Cardiac: Reports: Arrhythmia, Blood Clots/VTE/DVT, CAD, Cardiomyopathy, Heart Failure, Heart Murmur, High Cholesterol, Hypertension, VA, Pacemaker, Stent, Other (See Below). Denies: Afib, Aneurysm, Bypass, PVD/COD, Syncope Other Cardiac Family History: Mother with fatal heart disease at age 94. Sisters 2 with valve replacement one in her 60s see other in the 80s with another sister having valvular disease not requiring surgery with no history of rheumatic fever in any of these siblings. Sister with history of VA and PTCA/stent her 70s and another sister having a PTCA/stent also in her 70s with subsequent Fatal VA in Her 80s.. Sister with fatal blood clots during pacemaker placement in her late 70s. Brother with VA and fatal CHF at age 80. All of the above family members also suffered from hyperlipidemia and hypertension. Respiratory: Reports: Asthma, COPD, PE, Sleep Apnea, Other (See Below). Denies: Pneumothorax Other Respiratory Family Hisory: Brother with COPD likely secondary to tobacco use. Sisters 2 with sleep apnea. Possible intraoperative PE and pacemaker placement and sister as above. Asthma with paternal aunt and paternal uncle. GI: Reports: Colon Polyps, Other (See Below). Denies: Celiac Disease, Cholelithiasis, GERD, GI bleed, Inflammatory Bowel Disease, Irritable Bowel Syndrome, PUD Other GI Family History: History of colon cancer as below. : Reports: None. Denies: Renal Calculus, Renal Disease/Insufficiency OBGYN: Reports: None. Denies: Endometriosis, Recurrent Spontaneous Musculoskeletal: Reports: None. Denies: Arthritis, Gout, RA, SLE Neurological: Reports: CVA, Other (See Below). Denies: Alzheimers Disease, Cerebral Aneurysms, Dementia, Migraines, MS, Parkinson's, Seizure, TIA, Vertigo Other Neurological Family History: Father with recurrent CVAs fatal at age 89. Psychiatric: Reports: None. Denies: Abuse, Victim of, ADD, ADHD, Anxiety, Depression, Psych Hospitalization(s), PTSD, Suicide Attempt Endocrine/Metabolic: Reports: Diabetes, type II, IDDM, Other (See Below). Denies: Diabetes, Gestational, Diabetes, Type I, Diabetes Mellitus, Type 3c, Hypothyroidism Other Endocrine/Metabolic Family History: Mother and sister with IDDM. Sisters 2 with AODM currently diet controlled. AODM and 3 maternal aunts and 2 maternal uncles. Hematologic: Reports: None. Denies: SLE Immunologic: Reports: None. Denies: AIDS, HIV, SLE Dermatologic: Reports: None. Denies: Eczema, Psoriasis Oncologic: Reports: Breast, Colon, Esophageal, Metastatic, Pancreatic, Other (See Below). Denies: Cervix, Hodgkin's Lymphoma, Leukemia, Lung, Lymphoma, Non- Hodgkin's Lymphoma, Ovarian, Skin, Uterine Other Oncologic Family History: Sister with fatal breast, pancreatic, and colon cancer in her 80s. Sisters 2 with colon cancer in their 70s. Brother with fatal esophageal cancer with previous history of Harris's esophagitis in his 80s with history of tobacco use. Maternal grandparents with fatal pancreatic cancer in their 70s. - Tobacco Use Tobacco Use Status *Q: Never Tobacco User Tobacco Use Within Last Twelve Months: No Used Tobacco, but Quit: No Smoking Cessation Information Provided To Patient: No Second Hand Smoke Exposure: No Second Hand Smoke Education Provided: No - Caffeine Use Caffeine Use: Reports: Coffee (1-2 cups/day). Denies: Energy Drinks, Soda, Tea - Alcohol Use Alcohol Use History: Yes Days Per Week of Alcohol Use: 0 Number of Drinks Per Day: 1 Number of Drinks Per Day Comment: Usually wine for holidays. No previous DWIs, problems with alcohol abuse, etc. Total Drinks Per Week: 0 Alcohol Use in Last Twelve Months: Yes Alcohol Use Frequency: Rarely - Recreational Drug Use Recreational Drug Use: No Drug Use in Last 12 Months: No Recreational Drug Type: Denies: Amphetamines (Speed), Cocaine, Heroin, Inhalants (Glues, Solvents, Aerosols), LSD (Acid), Marijuana/Hashish, Methamphetamine, Morphine, Oxycodone - Living Situation & Occupation Living situation: Reports: (1957, 4 children), with Family () Occupation: Retired ([employer] ) ED ROS GENERAL - Review of Systems Review Of Systems: Comprehensive ROS is negative, except as noted in HPI. ED EXAM, GENERAL - Physical Exam Exam: See Below Exam Limited By: No Limitations General Appearance: Alert, WD/WN, No Apparent Distress Eye Exam: Bilateral Eye: EOMI, Normal Inspection (No vertigo or nystagmus. The patient is wearing glasses.), PERRL Ears: Normal External Exam, Normal Canal, Normal TMs, Hearing Loss (Mild bilateral presbycusis) Nose: Normal Inspection, Normal Mucosa, No Blood Throat/Mouth: Normal Inspection, Normal Lips, Normal Teeth (Multiple missing teeth with no caries or abscesses), Normal Gums, Normal Oropharynx, Normal Voice, No Airway Compromise. No: Dysphagia, Perioral Cyanosis Head: Atraumatic, Normocephalic. No: Facial Swelling, Facial Tenderness, Sinus Tenderness Neck: Supple, Non-Tender, Full Range of Motion, Carotid Bruit (Mild bilateral carotid bruits). No: Lymphadenopathy (L), Lymphadenopathy (R), Thyromegaly Respiratory/Chest: No Respiratory Distress, No Accessory Muscle Use, Chest Non- Tender, Rales (Mild bilateral basal rales). No: Pleural Rub, Retractions Cardiovascular: Normal Peripheral Pulses, Regular Rate, Rhythm, No Gallop, No JVD, No Murmur, No Rub. No: No Edema (Dependent edema as below), Gallop/S3, Gallop/S4, Friction Rub Peripheral Pulses: 2+: Radial (L), Radial (R), Dorsalis Pedis (L), Dorsalis Pedis (R) GI/Abdominal: Normal Bowel Sounds, Soft, Non-Tender, No Organomegaly, No Distention, No Abnormal Bruit, No Mass, Pelvis Stable, Other (Obese). No: Guarding (Female) Exam: Deferred Rectal (Female) Exam: Deferred Back Exam: Full Range of Motion, Other (Mild scoliosis). No: CVA Tenderness (L), CVA Tenderness (R), Muscle Spasm, Paraspinal Tenderness, Vertebral Tenderness Extremities: Normal Range of Motion, Non-Tender, Normal Capillary Refill, Pedal Edema (Trace+1 bilateral pedal/pretibial edema). No: Keyur's Sign Neurological: Alert, Oriented, CN II-XII Intact, Normal Cognition, Normal Gait, Normal Reflexes (Negative Babinski's), No Motor/Sensory Deficits Psychiatric: Normal Affect, Normal Mood Skin Exam: Warm, Dry, Intact, Normal Color, No Rash, Wound/Incision (Occasional superficial scratches/abrasions with no evidence of infection). No: Ecchymosis, Petechiae Lymphatic: No Adenopathy #1 Interpretation EKG Date: 12/06/20 Time: 22:44 Rhythm: NSR Rate (Beats/Min): 62 Phil Campbell: Normal (Left) P-Wave: Enlarged (Moderate diffuse biphasic) QRS: Wide (0.10 seconds representing repolarization changes with new T wave inversion in lead III) ST-T: Normal (As above) QT: Normal NH/PQ Interval: 0.21 seconds representing a stable first-degree AV block with extreme poor R wave progression in the anterior leads. Comparison: Change From Previous EKG (As above since 08/16/2019) EKG Interpretation Comments: 1. No acute ischemic changes 2. First-degree AV block 3. Repolarization changes 4. Left atrial enlargement Course - Vital Signs Last Recorded V/S: Last Vital Signs Temp 36.4 C 12/06/20 22:10 Pulse 64 12/06/20 23:22 Resp 19 12/06/20 23:22 BP 152/61 H 12/06/20 23:22 Pulse Ox 98 12/06/20 23:22 Vital Signs - 24 hr 12/06/20 12/06/20 12/06/20 22:10 22:13 23:22 Temperature [ 36.4 C Temporal] Pulse, 72 63 64 Peripheral [ Pulse Oximetry] Respiratory 16 18 19 Rate Blood Pressure 159/66 H 160/66 H 152/61 H [Left Upper Arm ] O2 Sat by Pulse 100 100 98 Oximetry - Orders/Labs/Meds Orders: Active Orders 24 hr Category Date Time Status Cardiac Monitoring [RC] . DIRECTED Care 12/06/20 22:13 Active EKG Documentation Completion [RC] ASDIRECTED Care 12/06/20 22:13 Active Oxygen Therapy, ED [RC] PRN Care 12/06/20 22:13 Active Peripheral IV Care [RC] . DIRECTED Care 12/06/20 22:13 Active Pulse Oximetry [RC] CONTINUOUS Care 12/06/20 22:13 Active Up With Assistance [RC] PFP Care 12/06/20 22:13 Active Vital Signs [RC] PFP Care 12/06/20 22:13 Active Nothing per Oral Now Diet [DIET] Diet 12/06/20 Breakfast Active Chest 1V Frontal [CR] Stat Exams 12/06/20 22:13 Taken Sodium Chloride 0.9% [Saline Flush] Med 12/06/20 22:13 Active 10 ml FLUSH ASDIRECTED PRN Obtain Past Medical Record [OM.PC] Urgent Oth 12/06/20 22:13 Active Peripheral IV Insertion Adult [OM.PC] Stat Oth 12/06/20 22:13 Ordered Resuscitation Status Stat Resus Stat 12/06/20 22:13 Ordered Medication Orders Sodium Chloride (Sodium Chloride 0.9% 10 Ml Syringe) 10 ml FLUSH ASDIRECTED PRN PRN Reason: Keep Vein Open Last Admin: 12/06/20 22:37 Dose: 10 ml Documented by: [email or web address] Labs: Laboratory Tests 12/06/20 12/06/20 12/06/20 Range/Units 22:20 22:33 22:33 WBC 6.4 (4.0-10.2) K/uL RBC 3.65 L (3.77-5.09) M/uL Hgb 12.2 D (11.7-15.5) g/dL Hct 35.3 (34.0-46.0) % MCV 96.7 (84.0-98.0) fL MCH 33.4 H (28.2-33.3) pg MCHC 34.6 (31.7-36.0) g/dL RDW 12.0 (11.2-14.1) % Plt Count 210 (150-350) K/uL Neut % (Auto) 38.9 L (45.0-80.0) % Lymph % (Auto) 45.0 (10.0-50.0) % [place] % (Auto) 11.6 (2.0-14.0) % Eos % (Auto) 3.9 (0.0-5.0) % Baso % (Auto) 0.6 (0.0-2.0) % Neut # (Auto) 2.48 (1.40-7.00) K/uL Lymph # (Auto) 2.87 (0.50-3.50) K/uL [place] # (Auto) 0.74 (0.00-1.00) K/uL Eos # (Auto) 0.25 (0.00-0.50) K/uL Baso # (Auto) 0.04 (0.00-0.20) K/uL PT 9.9 (9.5-12.0) SEC INR 1.0 APTT 27.2 (24.5-32.8) SEC D-Dimer, Quantitative (0-400) ng/mL Sodium (136-145) mmol/L Potassium (3.5-5.1) mmol/L Chloride (98-107) mmol/L Carbon Dioxide (21.0-32.0) mmol/L BUN (7-18) mg/dL Creatinine (0.51-1.17) mg/dL Est Cr Clr Drug Dosing mL/min Estimated GFR (MDRD) mL/min Glucose (70-99) mg/dL Lactic Acid (0.4-2.0) mmol/L Uric Acid (2.6-7.2) mg/dL Calcium (8.5-10.1) mg/dL Magnesium (1.8-2.4) mg/dL Total Bilirubin (0.2-1.0) mg/dL AST (15-37) U/L ALT (12-78) U/L Alkaline Phosphatase (46-116) IU/L Troponin I (0.000-0.056) ng/mL NT-Pro-B Natriuret Pep (0-125) pg/mL Total Protein (6.4-8.2) g/dL Albumin (3.4-5.0) g/dL TSH, Ultra Sensitive (0.358-3.740) mIU/mL SARS-CoV-2 RNA (MELANY) Negative (NEGATIVE) 12/06/20 12/06/20 12/06/20 Range/Units 22:33 22:33 22:33 WBC (4.0-10.2) K/uL RBC (3.77-5.09) M/uL Hgb (11.7-15.5) g/dL Hct (34.0-46.0) % MCV (84.0-98.0) fL MCH (28.2-33.3) pg MCHC (31.7-36.0) g/dL RDW (11.2-14.1) % Plt Count (150-350) K/uL Neut % (Auto) (45.0-80.0) % Lymph % (Auto) (10.0-50.0) % [place] % (Auto) (2.0-14.0) % Eos % (Auto) (0.0-5.0) % Baso % (Auto) (0.0-2.0) % Neut # (Auto) (1.40-7.00) K/uL Lymph # (Auto) (0.50-3.50) K/uL [place] # (Auto) (0.00-1.00) K/uL Eos # (Auto) (0.00-0.50) K/uL Baso # (Auto) (0.00-0.20) K/uL PT (9.5-12.0) SEC INR APTT (24.5-32.8) SEC D-Dimer, Quantitative < 100 (0-400) ng/mL Sodium 138 (136-145) mmol/L Potassium 4.5 (3.5-5.1) mmol/L Chloride 103 (98-107) mmol/L Carbon Dioxide 25.5 (21.0-32.0) mmol/L BUN 29 H (7-18) mg/dL Creatinine 1.30 H (0.51-1.17) mg/dL Est Cr Clr Drug Dosing 26.04 mL/min Estimated GFR (MDRD) 39 mL/min Glucose 120 H (70-99) mg/dL Lactic Acid 0.8 (0.4-2.0) mmol/L Uric Acid 5.8 (2.6-7.2) mg/dL Calcium 9.5 (8.5-10.1) mg/dL Magnesium 1.9 (1.8-2.4) mg/dL Total Bilirubin 0.3 (0.2-1.0) mg/dL AST 15 (15-37) U/L ALT 28 (12-78) U/L Alkaline Phosphatase 72 (46-116) IU/L Troponin I 0.000 (0.000-0.056) ng/mL NT-Pro-B Natriuret Pep 108 (0-125) pg/mL Total Protein 6.8 (6.4-8.2) g/dL Albumin 3.6 (3.4-5.0) g/dL TSH, Ultra Sensitive 1.266 (0.358-3.740) mIU/mL SARS-CoV-2 RNA (MELANY) (NEGATIVE) Meds: Medications Generic Name Dose Route Start Last Admin Trade Name Freq PRN Reason Stop Dose Admin Sodium Chloride 10 ml 12/06/20 22:13 12/06/20 22:37 Sodium Chloride 0.9% 10 Ml Syringe FLUSH 10 ml ASDIRECTED PRN Administration Keep Vein Open Discontinued Medications Generic Name Dose Route Start Last Admin Trade Name Freq PRN Reason Stop Dose Admin Famotidine 40 mg 12/06/20 22:13 12/06/20 22:36 Famotidine 20 Mg/2 Ml Sdv IVPUSH 12/06/20 22:14 40 mg ONETIME ONE Administration - Radiology Interpretation Free Text/Narrative:: 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 Departure - Departure Time of Disposition: 23:45 Disposition: Refer to Observation Condition: Good Clinical Impression: Peptic reflux disease, First degree AV block, Chest pain in adult, Renal insufficiency COPD (chronic obstructive pulmonary disease) Qualifiers: COPD type: emphysema Emphysema type: panlobular Qualified Code(s): J43.1 - Panlobular emphysema Atrial fibrillation Qualifiers: Atrial fibrillation type: paroxysmal Qualified Code(s): I48.0 - Paroxysmal atrial fibrillation Hypertension Qualifiers: Hypertension type: essential hypertension Qualified Code(s): I10 - Essential (primary) hypertension Osteoarthritis Qualifiers: Osteoarthritis location: multiple joints Osteoarthritis type: primary Qualified Code(s): M15.0 - Primary generalized (osteo)arthritis Referrals: Purnima Mcdonald NP [Primary Care Provider] - Forms: ED Department Discharge Care Plan Goals: See plan Sepsis Event Note (ED) - Evaluation Sepsis Screening Result: No Definite Risk - Focused Exam Vital Signs: Vital Signs Temp Pulse Resp BP Pulse Ox 12/06/20 23:22 64 19 152/61 H 98 12/06/20 22:13 63 18 160/66 H 100 12/06/20 22:10 36.4 C 72 16 159/66 H 100 - Problem List & Annotations (1) Chest pain in adult SNOMED Code(s): 32869492 Code(s): R07.9 - CHEST PAIN, UNSPECIFIED Status: Acute Priority: High Current Visit: Yes Onset Date: 06/03/19 Annotation/Comment:: Chest pain protocol initiated in the emergency room, although no ASA or aspirin secondary to her current Eliquis therapy. The patient's chest pain did not recur in the emergency room. Initiate standard rule out [facility] orders with cardiology consultation depending on her clinical course. She is uncertain about her current medical therapy with to bring medications to this facility later this evening. Consider Cardiolite stress test in this facility after discharge. (2) Hypertension SNOMED Code(s): 01476974 Code(s): I10 - ESSENTIAL (PRIMARY) HYPERTENSION Status: Chronic Priority: Medium Current Visit: Yes Annotation/Comment:: Blood pressures were under good control in the emergency room although somewhat elevated. Continue to observe closely during this hospitalization and by her regular provider. Qualifiers: Hypertension type: essential hypertension Qualified Code(s): I10 - Essential (primary) hypertension (3) Peptic reflux disease SNOMED Code(s): 015937732 Code(s): K21.9 - GASTRO-ESOPHAGEAL REFLUX DISEASE WITHOUT ESOPHAGITIS Status: Chronic Priority: High Current Visit: Yes Annotation/Comment:: High-dose IV Pepcid given as GI prophylaxis. Her reflux has been under somewhat moderate control recently however note a recent EGD with negative biopsies on 11/12/2020. Continue to observe closely for now, including by her regular providers at discharge. (4) Osteoarthritis SNOMED Code(s): 909415294 Code(s): M19.90 - UNSPECIFIED OSTEOARTHRITIS, UNSPECIFIED SITE Status: Chronic Priority: Medium Current Visit: Yes Annotation/Comment:: Stable by patient history Qualifiers: Osteoarthritis location: multiple joints Osteoarthritis type: primary Qualified Code(s): M89.49 - Other hypertrophic osteoarthropathy, multiple sites (5) Hyperlipidemia SNOMED Code(s): 79596280 Code(s): E78.5 - HYPERLIPIDEMIA, UNSPECIFIED Status: Chronic Priority: Medium Current Visit: Yes Annotation/Comment:: Lipid panel glycosylated hemoglobin in the a.m. with history of borderline hyperglycemia. Qualifiers: Hyperlipidemia type: unspecified Qualified Code(s): E78.5 - Hyperlipidemia, unspecified (6) COPD (chronic obstructive pulmonary disease) SNOMED Code(s): 91993751 Code(s): J44.9 - CHRONIC OBSTRUCTIVE PULMONARY DISEASE, UNSPECIFIED Status: Chronic Priority: Medium Current Visit: Yes Annotation/Comment:: Stable by history with no recent fever or bronchitic type symptoms. Note history of CPAP with patient to use her own machine during this hospitalization. Qualifiers: COPD type: emphysema Emphysema type: panlobular Qualified Code(s): J43.1 - Panlobular emphysema (7) Atrial fibrillation SNOMED Code(s): 84734576 Code(s): I48.91 - UNSPECIFIED ATRIAL FIBRILLATION Status: Acute Priority: High Current Visit: Yes Onset Date: 06/03/19 Annotation/Comment:: Recurrent atrial fibrillation with current Eliquis therapy. Note first-degree AV block, PACs, PVCs by history with no significant arrhythmia at this time and patient now in normal sinus rhythm with exception of first-degree AV block. Qualifiers: Atrial fibrillation type: paroxysmal Qualified Code(s): I48.0 - Paroxysmal atrial fibrillation (8) Renal insufficiency SNOMED Code(s): 063285620, 093816399 Code(s): N28.9 - DISORDER OF KIDNEY AND URETER, UNSPECIFIED Status: Acute Priority: Medium Current Visit: Yes Onset Date: 12/06/20 Annotation/Comment:: Newly diagnosed. Observe for now. - Problem List Review Problem List Initiated/Reviewed/Updated: Yes - My Orders Last 24 Hours: My Active Orders 12/06/20 Breakfast Nothing per Oral Now Diet [DIET] 12/06/20 22:13 Cardiac Monitoring [RC] . DIRECTED EKG Documentation Completion [RC] ASDIRECTED Oxygen Therapy, ED [RC] PRN Peripheral IV Care [RC] . DIRECTED Pulse Oximetry [RC] CONTINUOUS Up With Assistance [RC] PFP Vital Signs [RC] PFP Chest 1V Frontal [CR] Stat Sodium Chloride 0.9% [Saline Flush] 10 ml FLUSH ASDIRECTED PRN Obtain Past Medical Record [OM.PC] Urgent Peripheral IV Insertion Adult [OM.PC] Stat Resuscitation Status Stat - Assessment/Plan Admission H&P: Please use this note as an admission H&P Last 24 Hours: My Active Orders 12/06/20 Breakfast Nothing per Oral Now Diet [DIET] 12/06/20 22:13 Cardiac Monitoring [RC] . DIRECTED EKG Documentation Completion [RC] ASDIRECTED Oxygen Therapy, ED [RC] PRN Peripheral IV Care [RC] . DIRECTED Pulse Oximetry [RC] CONTINUOUS Up With Assistance [RC] PFP Vital Signs [RC] PFP Chest 1V Frontal [CR] Stat Sodium Chloride 0.9% [Saline Flush] 10 ml FLUSH ASDIRECTED PRN Obtain Past Medical Record [OM.PC] Urgent Peripheral IV Insertion Adult [OM.PC] Stat Resuscitation Status Stat Assessment:: As above Plan: As above. Extensive precautions were given to the patient and her , who are in agreement with the treatment plan. The patient's condition is stable enough for observation status and general supervision. Tiffany aguilar provider assumes care in the a.m.
[2020-12-06] MEDS: Famotidine 20 MG/2 ML SDV IVPUSH ONE (22:36)
[2020-12-06] MEDS: Sodium Chloride 0.9% 10 ML Syringe FLUSH PRN (22:37)
[2020-12-06 22:49] LABS: PTT,PARTIAL THROMBOPLSTIN TIME 27.2 SEC (24.5-32.8)
[2020-12-06] MEDS ORDERED: Temazepam 15 MG Cap PO PRN (23:59)
[2020-12-06] MEDS ORDERED: Sodium Chloride 0.9% 10 ML Syringe FLUSH PRN (23:59)
[2020-12-06] MEDS ORDERED: Acetaminophen 325 MG Tab PO PRN (23:59)
[2020-12-07 07:54] LABS: HEMOGLOBIN A1C 6.1 % (4.3-5.7)
[2020-12-07] MEDS ORDERED: Diltiazem 180 MG Cap.CD PO SCH (08:00)
[2020-12-07] MEDS ORDERED: Apixaban 5 MG Tab PO SCH (08:00)
[2020-12-07] MEDS ORDERED: Pantoprazole 40 MG Tab.CR PO SCH (08:00)
[2020-12-07] MEDS: Losartan 50 MG Tab PO SCH (08:26)
--- NOTE | 2020-12-07 09:28 | PCM.PN ---
- General Info Date of Service: 12/07/20 Admission Dx/Problem (Free Text): 1)Chest Pain 2)HTN 3)Hyperlipidemia 4)GERD 5)Osteoarthritis Subjective Update: Anne is a 80 y/o female came in last night through the ER with c/o left sided chest pain. She was seen in the ER by Dr Johnson and was admitted to observation for serial troponin studies and cardiac monitoring. The patient denies that she has had any chest pain since arriving to the ER. No SOB or dizziness. She has been NPO for fasting labs this AM. She is anxious to get home. - Review of Systems General: Reports: No Symptoms HEENT: Reports: No Symptoms Pulmonary: Reports: No Symptoms Cardiovascular: Reports: No Symptoms Gastrointestinal: Reports: No Symptoms Genitourinary: Reports: No Symptoms Musculoskeletal: Reports: No Symptoms Skin: Reports: No Symptoms Neurological: Reports: No Symptoms Psychiatric: Reports: No Symptoms - Patient Data Vitals - Most Recent: Last Vital Signs Temp 36.1 C 12/07/20 07:15 Pulse 57 L 12/07/20 07:15 Resp 16 12/07/20 07:15 BP 146/67 H 12/07/20 07:15 Pulse Ox 97 12/07/20 07:15 Weight - Most Recent: 91.081 kg I&O - Last 24 Hours: Intake & Output 12/06/20 12/07/20 12/07/20 22:59 06:59 14:59 Intake Total 0 Output Total 1200 Balance -1200 Lab Results Last 24 Hours: Laboratory Results - last 24 hr 12/06/20 12/06/20 12/06/20 Range/Units 22:20 22:33 22:33 WBC 6.4 (4.0-10.2) K/uL RBC 3.65 L (3.77-5.09) M/uL Hgb 12.2 D (11.7-15.5) g/dL Hct 35.3 (34.0-46.0) % MCV 96.7 (84.0-98.0) fL MCH 33.4 H (28.2-33.3) pg MCHC 34.6 (31.7-36.0) g/dL RDW 12.0 (11.2-14.1) % Plt Count 210 (150-350) K/uL Neut % (Auto) 38.9 L (45.0-80.0) % Lymph % (Auto) 45.0 (10.0-50.0) % Sharp % (Auto) 11.6 (2.0-14.0) % Eos % (Auto) 3.9 (0.0-5.0) % Baso % (Auto) 0.6 (0.0-2.0) % Neut # (Auto) 2.48 (1.40-7.00) K/uL Lymph # (Auto) 2.87 (0.50-3.50) K/uL Sharp # (Auto) 0.74 (0.00-1.00) K/uL Eos # (Auto) 0.25 (0.00-0.50) K/uL Baso # (Auto) 0.04 (0.00-0.20) K/uL PT 9.9 (9.5-12.0) SEC INR 1.0 APTT 27.2 (24.5-32.8) SEC D-Dimer, Quantitative (0-400) ng/mL Sodium (136-145) mmol/L Potassium (3.5-5.1) mmol/L Chloride (98-107) mmol/L Carbon Dioxide (21.0-32.0) mmol/L BUN (7-18) mg/dL Creatinine (0.51-1.17) mg/dL Est Cr Clr Drug Dosing mL/min Estimated GFR (MDRD) mL/min Glucose (70-99) mg/dL Hemoglobin A1c (4.3-5.7) % Lactic Acid (0.4-2.0) mmol/L Uric Acid (2.6-7.2) mg/dL Calcium (8.5-10.1) mg/dL Magnesium (1.8-2.4) mg/dL Total Bilirubin (0.2-1.0) mg/dL AST (15-37) U/L ALT (12-78) U/L Alkaline Phosphatase (46-116) IU/L Troponin I (0.000-0.056) ng/mL NT-Pro-B Natriuret Pep (0-125) pg/mL Total Protein (6.4-8.2) g/dL Albumin (3.4-5.0) g/dL Triglycerides (30-150) mg/dL Cholesterol (100-200) mg/dL LDL Cholesterol, Calc (0-100) mg/dL HDL Cholesterol (40-60) mg/dL TSH, Ultra Sensitive (0.358-3.740) mIU/mL SARS-CoV-2 RNA (MELANY) Negative (NEGATIVE) 12/06/20 12/06/20 12/06/20 Range/Units 22:33 22:33 22:33 WBC (4.0-10.2) K/uL RBC (3.77-5.09) M/uL Hgb (11.7-15.5) g/dL Hct (34.0-46.0) % MCV (84.0-98.0) fL MCH (28.2-33.3) pg MCHC (31.7-36.0) g/dL RDW (11.2-14.1) % Plt Count (150-350) K/uL Neut % (Auto) (45.0-80.0) % Lymph % (Auto) (10.0-50.0) % Sharp % (Auto) (2.0-14.0) % Eos % (Auto) (0.0-5.0) % Baso % (Auto) (0.0-2.0) % Neut # (Auto) (1.40-7.00) K/uL Lymph # (Auto) (0.50-3.50) K/uL Sharp # (Auto) (0.00-1.00) K/uL Eos # (Auto) (0.00-0.50) K/uL Baso # (Auto) (0.00-0.20) K/uL PT (9.5-12.0) SEC INR APTT (24.5-32.8) SEC D-Dimer, Quantitative < 100 (0-400) ng/mL Sodium 138 (136-145) mmol/L Potassium 4.5 (3.5-5.1) mmol/L Chloride 103 (98-107) mmol/L Carbon Dioxide 25.5 (21.0-32.0) mmol/L BUN 29 H (7-18) mg/dL Creatinine 1.30 H (0.51-1.17) mg/dL Est Cr Clr Drug Dosing 26.04 mL/min Estimated GFR (MDRD) 39 mL/min Glucose 120 H (70-99) mg/dL Hemoglobin A1c (4.3-5.7) % Lactic Acid 0.8 (0.4-2.0) mmol/L Uric Acid 5.8 (2.6-7.2) mg/dL Calcium 9.5 (8.5-10.1) mg/dL Magnesium 1.9 (1.8-2.4) mg/dL Total Bilirubin 0.3 (0.2-1.0) mg/dL AST 15 (15-37) U/L ALT 28 (12-78) U/L Alkaline Phosphatase 72 (46-116) IU/L Troponin I 0.000 (0.000-0.056) ng/mL NT-Pro-B Natriuret Pep 108 (0-125) pg/mL Total Protein 6.8 (6.4-8.2) g/dL Albumin 3.6 (3.4-5.0) g/dL Triglycerides (30-150) mg/dL Cholesterol (100-200) mg/dL LDL Cholesterol, Calc (0-100) mg/dL HDL Cholesterol (40-60) mg/dL TSH, Ultra Sensitive 1.266 (0.358-3.740) mIU/mL SARS-CoV-2 RNA (MELANY) (NEGATIVE) 12/07/20 12/07/20 12/07/20 Range/Units 07:25 07:25 07:25 WBC 5.5 (4.0-10.2) K/uL RBC 3.70 L (3.77-5.09) M/uL Hgb 12.5 (11.7-15.5) g/dL Hct 35.9 (34.0-46.0) % MCV 97.0 (84.0-98.0) fL MCH 33.8 H (28.2-33.3) pg MCHC 34.8 (31.7-36.0) g/dL RDW 12.0 (11.2-14.1) % Plt Count 197 (150-350) K/uL Neut % (Auto) 50.0 (45.0-80.0) % Lymph % (Auto) 33.0 (10.0-50.0) % Sharp % (Auto) 11.7 (2.0-14.0) % Eos % (Auto) 4.6 (0.0-5.0) % Baso % (Auto) 0.7 (0.0-2.0) % Neut # (Auto) 2.74 (1.40-7.00) K/uL Lymph # (Auto) 1.81 (0.50-3.50) K/uL Sharp # (Auto) 0.64 (0.00-1.00) K/uL Eos # (Auto) 0.25 (0.00-0.50) K/uL Baso # (Auto) 0.04 (0.00-0.20) K/uL PT (9.5-12.0) SEC INR APTT (24.5-32.8) SEC D-Dimer, Quantitative (0-400) ng/mL Sodium 142 (136-145) mmol/L Potassium 4.5 (3.5-5.1) mmol/L Chloride 105 (98-107) mmol/L Carbon Dioxide 27.8 (21.0-32.0) mmol/L BUN 25 H (7-18) mg/dL Creatinine 1.25 H (0.51-1.17) mg/dL Est Cr Clr Drug Dosing 27.09 mL/min Estimated GFR (MDRD) 41 mL/min Glucose 105 H (70-99) mg/dL Hemoglobin A1c 6.1 H (4.3-5.7) % Lactic Acid (0.4-2.0) mmol/L Uric Acid (2.6-7.2) mg/dL Calcium 9.5 (8.5-10.1) mg/dL Magnesium (1.8-2.4) mg/dL Total Bilirubin 0.5 (0.2-1.0) mg/dL AST 18 (15-37) U/L ALT 27 (12-78) U/L Alkaline Phosphatase 70 (46-116) IU/L Troponin I 0.004 (0.000-0.056) ng/mL NT-Pro-B Natriuret Pep (0-125) pg/mL Total Protein 6.6 (6.4-8.2) g/dL Albumin 3.4 (3.4-5.0) g/dL Triglycerides 71 (30-150) mg/dL Cholesterol 133 (100-200) mg/dL LDL Cholesterol, Calc 63 (0-100) mg/dL HDL Cholesterol 56 (40-60) mg/dL TSH, Ultra Sensitive (0.358-3.740) mIU/mL SARS-CoV-2 RNA (MELANY) (NEGATIVE) Med Orders - Current: Current Medications Acetaminophen (Acetaminophen 325 Mg Tab) 650 mg PO Q4H PRN PRN Reason: Pain Apixaban (Apixaban 5 Mg Tab) 5 mg PO BID [facility] Atorvastatin Calcium (Atorvastatin 10 Mg Tab) 20 mg PO BEDTIME FERN Diltiazem HCl (Diltiazem 120 Mg Cap.Cd) 120 mg PO DAILY [facility] Losartan Potassium (Losartan 50 Mg Tab) 50 mg PO DAILY [facility] Last Admin: 12/07/20 08:26 Dose: Not Given Documented by: Magnesium Oxide (Magnesium Oxide 400 Mg Tab) 200 mg PO DAILY [facility] Pantoprazole Sodium (Pantoprazole 40 Mg Tab.Cr) 40 mg PO ACBREAKFAST [facility] Sodium Chloride (Sodium Chloride 0.9% 10 Ml Syringe) 10 ml FLUSH ASDIRECTED PRN PRN Reason: Keep Vein Open Last Admin: 12/06/20 22:37 Dose: 10 ml Documented by: Sodium Chloride (Sodium Chloride 0.9% 10 Ml Syringe) 10 ml FLUSH Q12HR PRN PRN Reason: Keep Vein Open Spironolactone (Spironolactone 25 Mg Tab) 25 mg PO DAILY [facility] Temazepam (Temazepam 15 Mg Cap) 15 mg PO BEDTIME PRN PRN Reason: Insomnia Discontinued Medications Apixaban (Apixaban 5 Mg Tab) 2.5 mg PO BID [facility] Diltiazem HCl (Diltiazem 180 Mg Cap.Cd) 180 mg PO DAILY [facility] Famotidine (Famotidine 20 Mg/2 Ml Sdv) 40 mg IVPUSH ONETIME ONE Stop: 12/06/20 22:14 Last Admin: 12/06/20 22:36 Dose: 40 mg Documented by: Pantoprazole Sodium (Pantoprazole 40 Mg Tab.Cr) 20 mg PO DAILY FERN - Exam General: Alert, Oriented (elderly female, NAD.) HEENT: Pupils Equal, Mucous Membr. Moist/[place] Neck: Supple Lungs: Clear to Auscultation, Normal Respiratory Effort Cardiovascular: Regular Rate, Regular Rhythm GI/Abdominal Exam: Normal Bowel Sounds, Soft, Non-Tender (Female) Exam: Deferred Back Exam: Normal Inspection Extremities: Normal Inspection, Normal Range of Motion, Non-Tender, Other (TEDs n) Skin: Warm, Dry, Intact Neurological: No New Focal Deficit Psy/Mental Status: Alert, Normal Affect, Normal Mood #1 Interpretation EKG Date: 12/07/20 Time: 07:44 Rhythm: Other (Sinus Bradycardia) Rate (Beats/Min): 57 [place]: Normal P-Wave: Present QRS: Normal ST-T: Normal QT: Normal Comparison: No Change - Patient Data Lab Results Last 24 hrs: Laboratory Results - last 24 hr 12/06/20 12/06/20 12/06/20 Range/Units 22:20 22:33 22:33 WBC 6.4 (4.0-10.2) K/uL RBC 3.65 L (3.77-5.09) M/uL Hgb 12.2 D (11.7-15.5) g/dL Hct 35.3 (34.0-46.0) % MCV 96.7 (84.0-98.0) fL MCH 33.4 H (28.2-33.3) pg MCHC 34.6 (31.7-36.0) g/dL RDW 12.0 (11.2-14.1) % Plt Count 210 (150-350) K/uL Neut % (Auto) 38.9 L (45.0-80.0) % Lymph % (Auto) 45.0 (10.0-50.0) % Sharp % (Auto) 11.6 (2.0-14.0) % Eos % (Auto) 3.9 (0.0-5.0) % Baso % (Auto) 0.6 (0.0-2.0) % Neut # (Auto) 2.48 (1.40-7.00) K/uL Lymph # (Auto) 2.87 (0.50-3.50) K/uL Sharp # (Auto) 0.74 (0.00-1.00) K/uL Eos # (Auto) 0.25 (0.00-0.50) K/uL Baso # (Auto) 0.04 (0.00-0.20) K/uL PT 9.9 (9.5-12.0) SEC INR 1.0 APTT 27.2 (24.5-32.8) SEC D-Dimer, Quantitative (0-400) ng/mL Sodium (136-145) mmol/L Potassium (3.5-5.1) mmol/L Chloride (98-107) mmol/L Carbon Dioxide (21.0-32.0) mmol/L BUN (7-18) mg/dL Creatinine (0.51-1.17) mg/dL Est Cr Clr Drug Dosing mL/min Estimated GFR (MDRD) mL/min Glucose (70-99) mg/dL Hemoglobin A1c (4.3-5.7) % Lactic Acid (0.4-2.0) mmol/L Uric Acid (2.6-7.2) mg/dL Calcium (8.5-10.1) mg/dL Magnesium (1.8-2.4) mg/dL Total Bilirubin (0.2-1.0) mg/dL AST (15-37) U/L ALT (12-78) U/L Alkaline Phosphatase (46-116) IU/L Troponin I (0.000-0.056) ng/mL NT-Pro-B Natriuret Pep (0-125) pg/mL Total Protein (6.4-8.2) g/dL Albumin (3.4-5.0) g/dL Triglycerides (30-150) mg/dL Cholesterol (100-200) mg/dL LDL Cholesterol, Calc (0-100) mg/dL HDL Cholesterol (40-60) mg/dL TSH, Ultra Sensitive (0.358-3.740) mIU/mL SARS-CoV-2 RNA (MELANY) Negative (NEGATIVE) 12/06/20 12/06/20 12/06/20 Range/Units 22:33 22:33 22:33 WBC (4.0-10.2) K/uL RBC (3.77-5.09) M/uL Hgb (11.7-15.5) g/dL Hct (34.0-46.0) % MCV (84.0-98.0) fL MCH (28.2-33.3) pg MCHC (31.7-36.0) g/dL RDW (11.2-14.1) % Plt Count (150-350) K/uL Neut % (Auto) (45.0-80.0) % Lymph % (Auto) (10.0-50.0) % Sharp % (Auto) (2.0-14.0) % Eos % (Auto) (0.0-5.0) % Baso % (Auto) (0.0-2.0) % Neut # (Auto) (1.40-7.00) K/uL Lymph # (Auto) (0.50-3.50) K/uL Sharp # (Auto) (0.00-1.00) K/uL Eos # (Auto) (0.00-0.50) K/uL Baso # (Auto) (0.00-0.20) K/uL PT (9.5-12.0) SEC INR APTT (24.5-32.8) SEC D-Dimer, Quantitative < 100 (0-400) ng/mL Sodium 138 (136-145) mmol/L Potassium 4.5 (3.5-5.1) mmol/L Chloride 103 (98-107) mmol/L Carbon Dioxide 25.5 (21.0-32.0) mmol/L BUN 29 H (7-18) mg/dL Creatinine 1.30 H (0.51-1.17) mg/dL Est Cr Clr Drug Dosing 26.04 mL/min Estimated GFR (MDRD) 39 mL/min Glucose 120 H (70-99) mg/dL Hemoglobin A1c (4.3-5.7) % Lactic Acid 0.8 (0.4-2.0) mmol/L Uric Acid 5.8 (2.6-7.2) mg/dL Calcium 9.5 (8.5-10.1) mg/dL Magnesium 1.9 (1.8-2.4) mg/dL Total Bilirubin 0.3 (0.2-1.0) mg/dL AST 15 (15-37) U/L ALT 28 (12-78) U/L Alkaline Phosphatase 72 (46-116) IU/L Troponin I 0.000 (0.000-0.056) ng/mL NT-Pro-B Natriuret Pep 108 (0-125) pg/mL Total Protein 6.8 (6.4-8.2) g/dL Albumin 3.6 (3.4-5.0) g/dL Triglycerides (30-150) mg/dL Cholesterol (100-200) mg/dL LDL Cholesterol, Calc (0-100) mg/dL HDL Cholesterol (40-60) mg/dL TSH, Ultra Sensitive 1.266 (0.358-3.740) mIU/mL SARS-CoV-2 RNA (MELANY) (NEGATIVE) 12/07/20 12/07/20 12/07/20 Range/Units 07:25 07:25 07:25 WBC 5.5 (4.0-10.2) K/uL RBC 3.70 L (3.77-5.09) M/uL Hgb 12.5 (11.7-15.5) g/dL Hct 35.9 (34.0-46.0) % MCV 97.0 (84.0-98.0) fL MCH 33.8 H (28.2-33.3) pg MCHC 34.8 (31.7-36.0) g/dL RDW 12.0 (11.2-14.1) % Plt Count 197 (150-350) K/uL Neut % (Auto) 50.0 (45.0-80.0) % Lymph % (Auto) 33.0 (10.0-50.0) % Sharp % (Auto) 11.7 (2.0-14.0) % Eos % (Auto) 4.6 (0.0-5.0) % Baso % (Auto) 0.7 (0.0-2.0) % Neut # (Auto) 2.74 (1.40-7.00) K/uL Lymph # (Auto) 1.81 (0.50-3.50) K/uL Sharp # (Auto) 0.64 (0.00-1.00) K/uL Eos # (Auto) 0.25 (0.00-0.50) K/uL Baso # (Auto) 0.04 (0.00-0.20) K/uL PT (9.5-12.0) SEC INR APTT (24.5-32.8) SEC D-Dimer, Quantitative (0-400) ng/mL Sodium 142 (136-145) mmol/L Potassium 4.5 (3.5-5.1) mmol/L Chloride 105 (98-107) mmol/L Carbon Dioxide 27.8 (21.0-32.0) mmol/L BUN 25 H (7-18) mg/dL Creatinine 1.25 H (0.51-1.17) mg/dL Est Cr Clr Drug Dosing 27.09 mL/min Estimated GFR (MDRD) 41 mL/min Glucose 105 H (70-99) mg/dL Hemoglobin A1c 6.1 H (4.3-5.7) % Lactic Acid (0.4-2.0) mmol/L Uric Acid (2.6-7.2) mg/dL Calcium 9.5 (8.5-10.1) mg/dL Magnesium (1.8-2.4) mg/dL Total Bilirubin 0.5 (0.2-1.0) mg/dL AST 18 (15-37) U/L ALT 27 (12-78) U/L Alkaline Phosphatase 70 (46-116) IU/L Troponin I 0.004 (0.000-0.056) ng/mL NT-Pro-B Natriuret Pep (0-125) pg/mL Total Protein 6.6 (6.4-8.2) g/dL Albumin 3.4 (3.4-5.0) g/dL Triglycerides 71 (30-150) mg/dL Cholesterol 133 (100-200) mg/dL LDL Cholesterol, Calc 63 (0-100) mg/dL HDL Cholesterol 56 (40-60) mg/dL TSH, Ultra Sensitive (0.358-3.740) mIU/mL SARS-CoV-2 RNA (MELANY) (NEGATIVE) Result Diagrams: 12/07/20 07:25 12/07/20 07:25 Sepsis Event Note - Evaluation Sepsis Screening Result: No Definite Risk - Focused Exam Vital Signs: Vital Signs Temp Pulse Resp BP BP Pulse Ox 12/07/20 07:15 36.1 C 57 L 16 146/67 H 97 12/07/20 06:00 36.6 C 56 L 16 126/51 L 100 12/07/20 04:00 37.0 C 62 16 119/40 L 99 12/07/20 02:00 36.8 C 62 16 159/72 H 99 12/06/20 23:59 36.5 C 60 16 148/68 H 100 12/06/20 23:22 64 19 152/61 H 98 12/06/20 22:13 63 18 160/66 H 100 12/06/20 22:10 36.4 C 72 16 159/66 H 100 - Problem List & Annotations (1) Chest pain in adult SNOMED Code(s): 70235015 Code(s): R07.9 - CHEST PAIN, UNSPECIFIED Status: Acute Priority: High Current Visit: Yes Onset Date: 06/03/19 Annotation/Comment:: -No chest painnoed since prior to ER admission. -Tropnin slightly higher than on admit, but still negative. Will repeat at 3pm today. -Consider Cardiolite stress test in this facility after discharge. (2) Renal insufficiency SNOMED Code(s): 800434885, 818241421 Code(s): N28.9 - DISORDER OF KIDNEY AND URETER, UNSPECIFIED Status: Acute Priority: Medium Current Visit: Yes Onset Date: 12/06/20 (3) Hyperlipidemia SNOMED Code(s): 69862960 Code(s): E78.5 - HYPERLIPIDEMIA, UNSPECIFIED Status: Chronic Priority: Medium Current Visit: Yes Qualifiers: Hyperlipidemia type: unspecified Qualified Code(s): E78.5 - Hyperlipidemia, unspecified Annotation/Comment:: -Lipid panel reviewed, remains on statin therapy (4) Hypertension SNOMED Code(s): 33491446 Code(s): I10 - ESSENTIAL (PRIMARY) HYPERTENSION Status: Chronic Priority: Medium Current Visit: Yes Qualifiers: Hypertension type: essential hypertension Qualified Code(s): I10 - Essential (primary) hypertension (5) Osteoarthritis SNOMED Code(s): 054705429 Code(s): M19.90 - UNSPECIFIED OSTEOARTHRITIS, UNSPECIFIED SITE Status: Chronic Priority: Medium Current Visit: Yes Qualifiers: Osteoarthritis location: multiple joints Osteoarthritis type: primary Qualified Code(s): M89.49 - Other hypertrophic osteoarthropathy, multiple sites Annotation/Comment:: Stable by patient history (6) Peptic reflux disease SNOMED Code(s): 032300151 Code(s): K21.9 - GASTRO-ESOPHAGEAL REFLUX DISEASE WITHOUT ESOPHAGITIS Status: Chronic Priority: High Current Visit: Yes - Problem List Review Problem List Initiated/Reviewed/Updated: Yes - Assessment Assessment:: As above - Plan Plan:: -Plan discharge to home if Troponin at 1500 is negative and no further chest pain
[2020-12-07] MEDS: Magnesium Oxide 400 MG Tab PO SCH (09:43)
[2020-12-07] MEDS: Diltiazem 120 MG Cap.CD PO SCH (09:43)
[2020-12-07] MEDS: Spironolactone 25 MG Tab PO SCH (09:43)
[2020-12-07] MEDS: Pantoprazole 40 MG Tab.CR PO SCH (09:43)
[2020-12-07] MEDS: Apixaban 5 MG Tab PO SCH (09:43)
[2020-12-07 14:21] VITALS: BP 149/61; PULSE 66
--- NOTE | 2020-12-07 15:57 | PCM.SN.2 ---
- Free Text/Narrative Note: S: No further episodes of chest pain. O:VSS, Sinus Jacobo noted on tele. Laboratory Last Values WBC 5.5 K/uL (4.0-10.2) 12/07/20 07:25 RBC 3.70 M/uL (3.77-5.09) L 12/07/20 07:25 Hgb 12.5 g/dL (11.7-15.5) 12/07/20 07:25 Hct 35.9 % (34.0-46.0) 12/07/20 07:25 MCV 97.0 fL (84.0-98.0) 12/07/20 07:25 MCH 33.8 pg (28.2-33.3) H 12/07/20 07:25 MCHC 34.8 g/dL (31.7-36.0) 12/07/20 07:25 RDW 12.0 % (11.2-14.1) 12/07/20 07:25 Plt Count 197 K/uL (150-350) 12/07/20 07:25 Neut % (Auto) 50.0 % (45.0-80.0) 12/07/20 07:25 Lymph % (Auto) 33.0 % (10.0-50.0) 12/07/20 07:25 [place] % (Auto) 11.7 % (2.0-14.0) 12/07/20 07:25 Eos % (Auto) 4.6 % (0.0-5.0) 12/07/20 07:25 Baso % (Auto) 0.7 % (0.0-2.0) 12/07/20 07:25 Neut # (Auto) 2.74 K/uL (1.40-7.00) 12/07/20 07:25 Lymph # (Auto) 1.81 K/uL (0.50-3.50) 12/07/20 07:25 [place] # (Auto) 0.64 K/uL (0.00-1.00) 12/07/20 07:25 Eos # (Auto) 0.25 K/uL (0.00-0.50) 12/07/20 07:25 Baso # (Auto) 0.04 K/uL (0.00-0.20) 12/07/20 07:25 PT 9.9 SEC (9.5-12.0) 12/06/20 22:33 INR 1.0 12/06/20 22:33 APTT 27.2 SEC (24.5-32.8) 12/06/20 22:33 D-Dimer, Quantitative < 100 ng/mL (0-400) 12/06/20 22:33 Sodium 142 mmol/L (136-145) 12/07/20 07:25 Potassium 4.5 mmol/L (3.5-5.1) 12/07/20 07:25 Chloride 105 mmol/L (98-107) 12/07/20 07:25 Carbon Dioxide 27.8 mmol/L (21.0-32.0) 12/07/20 07:25 BUN 25 mg/dL (7-18) H 12/07/20 07:25 Creatinine 1.25 mg/dL (0.51-1.17) H 12/07/20 07:25 Est Cr Clr Drug Dosing 27.09 mL/min 12/07/20 07:25 Estimated GFR (MDRD) 41 mL/min 12/07/20 07:25 Glucose 105 mg/dL (70-99) H 12/07/20 07:25 Hemoglobin A1c 6.1 % (4.3-5.7) H 12/07/20 07:25 Lactic Acid 0.8 mmol/L (0.4-2.0) 12/06/20 22:33 Uric Acid 5.8 mg/dL (2.6-7.2) 12/06/20 22:33 Calcium 9.5 mg/dL (8.5-10.1) 12/07/20 07:25 Magnesium 1.9 mg/dL (1.8-2.4) 12/06/20 22:33 Total Bilirubin 0.5 mg/dL (0.2-1.0) 12/07/20 07:25 AST 18 U/L (15-37) 12/07/20 07:25 ALT 27 U/L (12-78) 12/07/20 07:25 Alkaline Phosphatase 70 IU/L (46-116) 12/07/20 07:25 Troponin I 0.000 ng/mL (0.000-0.056) 12/07/20 14:45 NT-Pro-B Natriuret Pep 108 pg/mL (0-125) 12/06/20 22:33 Total Protein 6.6 g/dL (6.4-8.2) 12/07/20 07:25 Albumin 3.4 g/dL (3.4-5.0) 12/07/20 07:25 Triglycerides 71 mg/dL (30-150) 12/07/20 07:25 Cholesterol 133 mg/dL (100-200) 12/07/20 07:25 LDL Cholesterol, Calc 63 mg/dL (0-100) 12/07/20 07:25 HDL Cholesterol 56 mg/dL (40-60) 12/07/20 07:25 TSH, Ultra Sensitive 1.266 mIU/mL (0.358-3.740) 12/06/20 22:33 SARS-CoV-2 RNA (MELANY) Negative (NEGATIVE) 12/06/20 22:20 A/P: 1)Chest Pain -Will discharge to home and plan to have patient follow up note with her PCP. -Schedule for Cardiolite Stress Test per Dr Johnson
[2020-12-07] MEDS ORDERED: atorvaSTATin 10 MG Tab PO SCH (20:00)
[2020-12-08] MEDS ORDERED: Diltiazem 120 MG Cap.CD PO SCH (08:00)
[2020-12-08] MEDS ORDERED: Multivitamin Tab PO SCH (08:00)
[2020-12-08] MEDS ORDERED: Calcium Carbonate/Vitamin D3 1500 MG-400 Units Tab PO SCH (08:00)
== END 2020-12-07 16:14 | disposition home or self-care (01) ==
LOC: LL.ED 22:09 → LL.MS 23:52
PROVIDERS: ADMIT Family Medicine; ATTEND Family Medicine
DX: R07.9 Chest pain, unspecified (principal); I11.0 Hypertensive heart disease with heart failure; I50.9 Heart failure, unspecified; E78.00 Pure hypercholesterolemia, unspecified; J43.1 Panlobular emphysema; I48.0 Paroxysmal atrial fibrillation; Z20.822 Contact with and (suspected) exposure to COVID-19; Z88.8 Allergy status to other drugs, medicaments and biological substances; Z88.0 Allergy status to penicillin; Z88.2 Allergy status to sulfonamides; Z79.899 Other long term (current) drug therapy; Z90.49 Acquired absence of other specified parts of digestive tract; Z98.890 Other specified postprocedural states
CPT/HCPCS: 36415; 71045; 80053; 80061; 83036; 83605; 83735; 83880; 84443; 84484; 84550; 85025; 85379; 85610; 85730; 93005; 96374; 99285-25; A9270-GY; G0378; J3490; U0002

== ENCOUNTER 2021-05-25 12:54 | Emergency (ER) | payer MEDICARE, OTHER ==
[2021-05-25 13:45] LABS: ANION GAP 13.1 meq/L (7-15); CHLORIDE,CL 99 mmol/L (98-107); SODIUM,NA 133 mmol/L (136-145)
--- NOTE | 2021-05-25 14:20 | EDM.PDOC ---
ED HPI GENERAL MEDICAL PROBLEM - General Chief Complaint: Cardiovascular Problem Stated Complaint: A-Fib Time Seen by Provider: 05/25/21 13:08 Source of Information: Reports: Patient History Limitations: Reports: No Limitations - History of Present Illness INITIAL COMMENTS - FREE TEXT/NARRATIVE: Patient comes to ER with multiple complaints. Reports having episode of Afib that lasted approximately 36 hours and ended on Monday, 3 days ago. Is on Eliquis for Afib. [place] weak in general after episode resolved and that has persisted through today. No other acute changes over the weekend. No new meds/supplements/missed doses. No other signs of illness. Went to bed around 10-11pm last night. Woke this morning just before 8am. Noticed that her vision in BOTH eyes was mo re blurry than usual. No areas of blindness however. Around 11am she noticed some tingling/numbness of left hand and left cheek. She has had tingling in that left hand before so that is not new. She has not had it also involve her face or cheek in past. No problems with speech/swallowing. No obvious facial droop. In addition to this she has also developed intermittent sharp left sided pain and felt mild SOB. No cough/URI complaints. No fevers. Has history of CHF. Also notes that she has intermittently felt like she might pass out. No specific trigger for these complaints. Denies GI/ changes. No other focal neuro changes other than feeling like left leg slightly weaker. - Related Data Allergies Allergy/AdvReac Type Severity Reaction Status Date / Time albuterol Allergy Vomiting Verified 12/06/20 22:17 [From Proventil HFA] nitrofurantoin Allergy Rash Verified 12/06/20 22:17 macrocrystalline [From Macrobid] Penicillins Allergy Rash Verified 12/06/20 22:17 sulfamethoxazole Allergy Itching Verified 12/06/20 22:17 [From Bactrim] Home Meds: Home Meds Calcium Carbonate/Vitamin D3 [Calcium 500 + Vit D 400] 2 tab PO DAILY 06/05/13 [History] atorvaSTATin [Lipitor] 20 mg PO BEDTIME 06/05/13 [History] Apixaban [Eliquis] 5 mg PO BID 08/22/19 [History] Magnesium Oxide [Magnesium] 250 mg PO DAILY 08/22/19 [History] Pantoprazole Sodium [Protonix] 40 mg PO DAILY 11/11/20 [History] Losartan [Cozaar] 50 mg PO BEDTIME 11/12/20 [History] Spironolactone [Aldactone] 25 mg PO DAILY 11/12/20 [History] Multivitamin 1 tab PO DAILY 12/06/20 [History] Diltiazem [Cardizem CD] 120 mg PO DAILY 12/07/20 [History] Past Medical History HEENT History: Reports: Cataract, Hard of Hearing, Impaired Vision, Otitis Media, Sinusitis Other HEENT History: She wears glasses. Mild bilateral presbycusis with no current hearing therapy. Recurrent otitis media with no previous PE tubes therapy. Cardiovascular History: Reports: Afib, Arrhythmia, Cardiomyopathy, Heart Failure, High Cholesterol, Hypertension, Syncope Other Cardiovascular History: Recurrent atrial fibrillation since colonoscopy on 07/28/16 with current Eliquis therapy. PVCs, PACs, first-degree AV block and com plete right bundle branch block. Carotid occlusive disease by MRI of the head on 02/11/09. Syncopal episode related to vasovagal reaction with additional history of recurrent syncope including at time of atrial fibrillation and CHF on 06/03/2019. Mild mitral valve insufficiency and left atrial enlargement by echocardiogram with aortic valve calcification without stenosis. D-dimer elevation in November 2016 with negative workup as below. Respiratory History: Reports: COPD, Intubation, Previous, Sleep Apnea Other Respiratory History: She has been compliant with CPAP therapy since January 2019. Benign bilateral pulmonary nodules. Gastrointestinal History: Reports: Colon Polyp, Diverticulosis, GERD, Other (See Below) Other Gastrointestinal History: Harris Esophagus. Tubular adenoma of the transverse colon removed via colonoscopy in October 2020 as below. Genitourinary History: Reports: None MATERIAL HANDLER FLOORPERSON History: Reports: Polycystic Ovaries, Other MATERIAL HANDLER FLOORPERSON History: Ovarian cysts. Menopause in her late 40s. Full term without complications during pregnancies or deliveries. Musculoskeletal History: Reports: Arthritis, Back Pain, Chronic, Fracture, Neck Pain, Chronic, Osteoarthritis, Osteoporosis, Other (See Below) Other Musculoskeletal History: L1-L2 vertebral body compression fractures Distal fourth pharyngeal finger fracture of the right hand in her 40s. Right partial rotator cuff tear by MRI on 04/14/10. Neurological History: Reports: Headaches, Chronic, Seizure, Other (See Below) Other Neuro History: Questionable nonspecific seizure versus vasovagal reaction. Psychiatric History: Reports: None Endocrine/Metabolic History: Reports: Hypokalemia, Hypomagnesemia, Obesity/BMI 30+, Vitamin D Deficiency Other Endocrine/Metabolic History: Hyperglycemia without true diabetes. Hyponatremia. Hematologic History: Reports: Blood Transfusion(s), Other (See Below) Other Hematologic History: Auto transfusion with total knee arthroplasties as below. Immunologic History: Reports: None Oncologic (Cancer) History: Reports: None Dermatologic History: Reports: Psoriasis, Other (See Below) Other Dermatologic History: Seborrheic keratosis. - Infectious Disease History Infectious Disease History: Reports: Chicken Pox, Measles, Mumps, Pertussis (Whooping Cough), Shingles - Past Surgical History Head Surgeries/Procedures: Reports: None HEENT Surgical History: Reports: Cataract Surgery, Oral Surgery, Other (See Below) Other HEENT Surgeries/Procedures: Bilateral cataract surgery in about 2014. Powers teeth extraction x4 in her 40s. Cardiovascular Surgical History: Reports: None Respiratory Surgical History: Reports: None GI Surgical History: Reports: Appendectomy, Cholecystectomy, Colonoscopy, EGD, Polypectomy, Other (See Below) Other GI Surgeries/Procedures: Last EGD and colonoscopy with negative serial biopsies and negative H. pylori evaluation on 11/12/2020. Excision of tubular adenoma from the transverse colon at that time. Open cholecystectomy with concomitant ovarian cyst removal in the . Multiple previous colonoscopies with polypectomies on 07/28/2016 and 06/06/2013. EGD and colonoscopy on 04/19/2018, 02/26/2015, and 12/06/2012. Appendectomy in 1963. Female Surgical History: Reports: Cystoscopy, D&C, Oophorectomy, Other (See Below) Other Female Surgeries/Procedures: Right ovarian cyst excision in the . Cystoscopy in early 1999. D&C on 12/01/2010 secondary to thickened endometrium by ultrasound. Endocrine Surgical History: Reports: None Neurological Surgical History: Reports: None Musculoskeletal Surgical History: Reports: Carpal Tunnel, Joint Replacement, Knee Replacement, Other (See Below) Other Musculoskeletal Surgeries/Procedures:: Tendon repair of partial tear of the left posterior tibial tendon in 2015. Right carpal tunnel release in the . Bilateral hemiarthroplasty of her knees on 11/29/2007. Oncologic Surgical History: Reports: None Dermatological Surgical History: Reports: Skin Biopsy, Other (See Below) - Past Imaging History Past Imaging History: Reports: Cardiac Echo (02/1719 with ejection fraction of 5560 percent with otherwise findings as above. Previous echocardiogram on 08/23/16.), Carotid US (02/13/14.), CAT Scan (Negative CTA of the chest for PE on 11/28/16. CT of the brain on 06/04/2019 and 11/28/16. CT of the facial bones and sinuses on 09/01/15. CT of the abdomen and pelvis on 11/18/[address] 01/20/[address]. CT of the head on 01/02/08.), DEXA Scan (12/10/13 and 01/27/06..), HIDA Scan (Normal on 12/20/12.), Mammogram (Last on 01/07/2020.), MRA (Brain on 02/11/09 positive for carotid occlusive disease as above.), MRI (Left ankle on 03/07/16. Right shoulder on 04/14/10. MRI C-spine and right shoulder on 04/14/10.), Sleep Study (Including CPAP titration in January 2019.), Stress Testing (Negative Cardiolite stress test on 03/03/11 with ejection fraction of 75%.), Ultrasound (Gallbladder ultrasound with Kinevac on 01/28/15 with previous gallbladder ultrasound on 12/06/12. Pelvic ultrasound on 11/12/10. Abdominal ultrasound on 04/09/10. Soft tissue ultrasound on 10/13/06.), Venous Doppler (Legs bilaterally negative on 11/29/16) Social & Family History - Family History HEENT: Reports: None Cardiac: Reports: Arrhythmia, Blood Clots/VTE/DVT, CAD, Cardiomyopathy, Heart Failure, Heart Murmur, High Cholesterol, Hypertension, NC, Pacemaker, Stent, Other (See Below) Other Cardiac Family History: Mother with fatal heart disease at age 94. Sisters 2 with valve replacement one in her 60s see other in the 80s with another sister having valvular disease not requiring surgery with no history of rheumatic fever in any of these siblings. Sister with history of NC and PTCA/stent her 70s and another sister having a PTCA/stent also in her 70s with subsequent Fatal NC in Her 80s.. Sister with fatal blood clots during pacemaker placement in her late 70s. Brother with NC and fatal CHF at age 80. All of the above family members also suffered from hyperlipidemia and hypertension. Respiratory: Reports: Asthma, COPD, PE, Sleep Apnea, Other (See Below) Other Respiratory Family Hisory: Brother with COPD likely secondary to tobacco use. Sisters 2 with sleep apnea. Possible intraoperative PE and pacemaker placement and sister as above. Asthma with paternal aunt and paternal uncle. GI: Reports: Colon Polyps, Other (See Below) Other GI Family History: History of colon cancer as below. : Reports: None OBGYN: Reports: None Musculoskeletal: Reports: None Neurological: Reports: CVA, Other (See Below) Other Neurological Family History: Father with recurrent CVAs fatal at age 89. Psychiatric: Reports: None Endocrine/Metabolic: Reports: Diabetes, type II, IDDM, Other (See Below) Other Endocrine/Metabolic Family History: Mother and sister with IDDM. Sisters 2 with AODM currently diet controlled. AODM and 3 maternal aunts and 2 maternal uncles. Hematologic: Reports: None Immunologic: Reports: None Dermatologic: Reports: None Oncologic: Reports: Breast, Colon, Esophageal, Metastatic, Pancreatic, Other (See Below) Other Oncologic Family History: Sister with fatal breast, pancreatic, and colon cancer in her 80s. Sisters 2 with colon cancer in their 70s. Brother with fatal esophageal cancer with previous history of Harris's esophagitis in his 80s with history of tobacco use. Maternal grandparents with fatal pancreatic cancer in their 70s. - Caffeine Use Caffeine Use: Reports: Coffee - Living Situation & Occupation Living situation: Reports: (1957, 4 children), with Family () Occupation: Retired ([employer] ) ED ROS GENERAL - Review of Systems Review Of Systems: Comprehensive ROS is negative, except as noted in HPI. ED EXAM, GENERAL - Physical Exam Exam: See Below Exam Limited By: No Limitations General Appearance: Alert, WD/WN, No Apparent Distress Eye Exam: Bilateral Eye: EOMI, PERRL, Other (No visual field deficits noted when tested) Ears: Normal External Exam, Normal Canal, Hearing Grossly Normal Nose: No: Nasal Deformity, Nasal Swelling, Nasal Drainage Throat/Mouth: Normal Lips, Normal Voice, No Airway Compromise Head: Atraumatic, Normocephalic, Other (very minimal left corner mouth droop when compared to right when asked to smile) Neck: Normal Inspection, Supple, Non-Tender, Full Range of Motion Respiratory/Chest: No Respiratory Distress, Lungs Clear, Normal Breath Sounds, No Accessory Muscle Use, Chest Non-Tender Cardiovascular: Regular Rate, Rhythm, No Edema, No Murmur GI/Abdominal: Normal Bowel Sounds, Soft, Non-Tender, No Distention (Female) Exam: Deferred Rectal (Female) Exam: Deferred Back Exam: No: CVA Tenderness (L), CVA Tenderness (R), Muscle Spasm Extremities: Non-Tender, Normal Capillary Refill Neurological: Alert, Oriented, CN II-XII Intact (except for minimal left corner mouth droop when compared to right when asked to smile), Normal Cognition, Sensory/Motor Deficit (very mild diminished it assistant left hand and leg strength when tested) Psychiatric: Normal Affect, Normal Mood Skin Exam: Warm, Dry, Intact, Normal Color #1 Interpretation EKG Date: 05/25/21 Time: 13:23 Rhythm: Other (Sinus Bradycardia) Rate (Beats/Min): 54 [place]: LAD-Left Franklin Deviation P-Wave: Present QRS: RBBB ST-T: Other (minimal morphology change AVL/V2, similar appearance on EKG November 2020) QT: Normal Course - Vital Signs Last Recorded V/S: Last Vital Signs Temp 36.2 C 05/25/21 13:00 Pulse 60 05/25/21 14:45 Resp 18 05/25/21 14:45 BP 129/59 L 05/25/21 14:45 Pulse Ox 100 05/25/21 14:45 - Orders/Labs/Meds Orders: Active Orders 24 hr Category Date Time Status Chest 1V Frontal [CR] Stat Exams 05/25/21 13:41 Ordered Head wo Cont [CT] Stat Exams 05/25/21 13:07 Taken UA W/MICROSCOPIC [URIN] Stat Lab 05/25/21 13:49 Ordered Labs: Laboratory Tests 05/25/21 05/25/21 05/25/21 Range/Units 13:15 13:15 13:15 WBC 6.0 (4.0-10.2) K/uL RBC 3.54 L (3.77-5.09) M/uL Hgb 11.9 (11.7-15.5) g/dL Hct 34.4 (34.0-46.0) % MCV 97.2 (84.0-98.0) fL MCH 33.6 H (28.2-33.3) pg MCHC 34.6 (31.7-36.0) g/dL RDW 12.1 (11.2-14.1) % Plt Count 241 (150-350) K/uL Neut % (Auto) 49.3 (45.0-80.0) % Lymph % (Auto) 37.5 (10.0-50.0) % [place] % (Auto) 10.3 (2.0-14.0) % Eos % (Auto) 2.2 (0.0-5.0) % Baso % (Auto) 0.7 (0.0-2.0) % Neut # (Auto) 2.98 (1.40-7.00) K/uL Lymph # (Auto) 2.26 (0.50-3.50) K/uL [place] # (Auto) 0.62 (0.00-1.00) K/uL Eos # (Auto) 0.13 (0.00-0.50) K/uL Baso # (Auto) 0.04 (0.00-0.20) K/uL PT 10.3 (9.5-12.0) SEC INR 1.0 D-Dimer, Quantitative (0-400) ng/mL Sodium 133 L (136-145) mmol/L Potassium 5.0 (3.5-5.1) mmol/L Chloride 99 (98-107) mmol/L Carbon Dioxide 25.9 (21.0-32.0) mmol/L Anion Gap 13.1 (7-15) meq/L BUN 34 H (7-18) mg/dL Creatinine 1.52 H (0.51-1.17) mg/dL Est Cr Clr Drug Dosing TNP Estimated GFR (MDRD) 33 mL/min Glucose 126 H (70-99) mg/dL POC Glucose (70-99) mg/dL Lactic Acid (0.4-2.0) mmol/L Calcium 9.8 (8.5-10.1) mg/dL Magnesium 2.0 (1.8-2.4) mg/dL Total Bilirubin 0.5 (0.2-1.0) mg/dL AST 14 L (15-37) U/L ALT 25 (12-78) U/L Alkaline Phosphatase 76 (46-116) IU/L Troponin I High Sens 5 (<=51) ng/L NT-Pro-B Natriuret Pep (0-125) pg/mL Total Protein 6.9 (6.4-8.2) g/dL Albumin 3.7 (3.4-5.0) g/dL Influenza Type A RNA (NEGATIVE) RSV RNA (INAAT) (NEGATIVE) Influenza Type B RNA (NEGATIVE) SARS-CoV-2 RNA (MELANY) (NEGATIVE) 05/25/21 05/25/21 05/25/21 Range/Units 13:15 13:15 13:15 WBC (4.0-10.2) K/uL RBC (3.77-5.09) M/uL Hgb (11.7-15.5) g/dL Hct (34.0-46.0) % MCV (84.0-98.0) fL MCH (28.2-33.3) pg MCHC (31.7-36.0) g/dL RDW (11.2-14.1) % Plt Count (150-350) K/uL Neut % (Auto) (45.0-80.0) % Lymph % (Auto) (10.0-50.0) % [place] % (Auto) (2.0-14.0) % Eos % (Auto) (0.0-5.0) % Baso % (Auto) (0.0-2.0) % Neut # (Auto) (1.40-7.00) K/uL Lymph # (Auto) (0.50-3.50) K/uL [place] # (Auto) (0.00-1.00) K/uL Eos # (Auto) (0.00-0.50) K/uL Baso # (Auto) (0.00-0.20) K/uL PT (9.5-12.0) SEC INR D-Dimer, Quantitative < 100 (0-400) ng/mL Sodium (136-145) mmol/L Potassium (3.5-5.1) mmol/L Chloride (98-107) mmol/L Carbon Dioxide (21.0-32.0) mmol/L Anion Gap (7-15) meq/L BUN (7-18) mg/dL Creatinine (0.51-1.17) mg/dL Est Cr Clr Drug Dosing Estimated GFR (MDRD) mL/min Glucose (70-99) mg/dL POC Glucose (70-99) mg/dL Lactic Acid 0.7 (0.4-2.0) mmol/L Calcium (8.5-10.1) mg/dL Magnesium (1.8-2.4) mg/dL Total Bilirubin (0.2-1.0) mg/dL AST (15-37) U/L ALT (12-78) U/L Alkaline Phosphatase (46-116) IU/L Troponin I High Sens (<=51) ng/L NT-Pro-B Natriuret Pep 129 H (0-125) pg/mL Total Protein (6.4-8.2) g/dL Albumin (3.4-5.0) g/dL Influenza Type A RNA (NEGATIVE) RSV RNA (INAAT) (NEGATIVE) Influenza Type B RNA (NEGATIVE) SARS-CoV-2 RNA (MELANY) (NEGATIVE) 05/25/21 05/25/21 Range/Units 13:18 13:50 WBC (4.0-10.2) K/uL RBC (3.77-5.09) M/uL Hgb (11.7-15.5) g/dL Hct (34.0-46.0) % MCV (84.0-98.0) fL MCH (28.2-33.3) pg MCHC (31.7-36.0) g/dL RDW (11.2-14.1) % Plt Count (150-350) K/uL Neut % (Auto) (45.0-80.0) % Lymph % (Auto) (10.0-50.0) % [place] % (Auto) (2.0-14.0) % Eos % (Auto) (0.0-5.0) % Baso % (Auto) (0.0-2.0) % Neut # (Auto) (1.40-7.00) K/uL Lymph # (Auto) (0.50-3.50) K/uL [place] # (Auto) (0.00-1.00) K/uL Eos # (Auto) (0.00-0.50) K/uL Baso # (Auto) (0.00-0.20) K/uL PT (9.5-12.0) SEC INR D-Dimer, Quantitative (0-400) ng/mL Sodium (136-145) mmol/L Potassium (3.5-5.1) mmol/L Chloride (98-107) mmol/L Carbon Dioxide (21.0-32.0) mmol/L Anion Gap (7-15) meq/L BUN (7-18) mg/dL Creatinine (0.51-1.17) mg/dL Est Cr Clr Drug Dosing Estimated GFR (MDRD) mL/min Glucose (70-99) mg/dL POC Glucose 116 H (70-99) mg/dL Lactic Acid (0.4-2.0) mmol/L Calcium (8.5-10.1) mg/dL Magnesium (1.8-2.4) mg/dL Total Bilirubin (0.2-1.0) mg/dL AST (15-37) U/L ALT (12-78) U/L Alkaline Phosphatase (46-116) IU/L Troponin I High Sens (<=51) ng/L NT-Pro-B Natriuret Pep (0-125) pg/mL Total Protein (6.4-8.2) g/dL Albumin (3.4-5.0) g/dL Influenza Type A RNA Negative (NEGATIVE) RSV RNA (INAAT) Negative (NEGATIVE) Influenza Type B RNA Negative (NEGATIVE) SARS-CoV-2 RNA (MELANY) Negative (NEGATIVE) Meds: Medications Discontinued Medications Generic Name Dose Route Start Last Admin Trade Name Obiq PRN Reason Stop Dose Admin Sodium Chloride 500 mls @ 200 mls/hr 05/25/21 14:30 05/25/21 14:31 Normal Saline IV 200 mls/hr .BOLUS FERN Administration - Re-Assessments/Exams Free Text/Narrative Re-Assessment/Exam: 05/25/21 14:30 Nursing staff called stroke code given patient's complaint of numbness and left leg weakness. CT of head unremarkable per Radiology. Chest xray showed no focal acute changes. Stroke scale score of 2 (decreased left hand it assistant and left leg strength) [facility] contacted and patient reviewed with /Neuro. He recommended transfer to ER at [facility] in order to obtain CTA study that is unable to performed here. Patient not candidate for TPA given history/exam. Labs showed creatinine 1.52. Normal troponin. Minimally elevated proBNP. Minimally low Na. Covid/flu/RSV testing still pending at this time. Patient has not given UA specimen. Will start IV fluids to help improve creatinine given planed CTA study. Incidental nodular opacity noted by Radiology right upper lobe. PCP should look into follow up with chest CT for better evaluation as outpatient. Free Text/Narrative Re-Assessment/Exam: 05/25/21 16:19 Covid/influenza/RSV negative Departure - Departure Time of Disposition: 14:39 Disposition: DC/Tfer to Acute Hospital 02 Reason for Transfer *Q: Other Condition: Good Clinical Impression: Left-sided weakness, Near syncope, Visual changes, Not feeling great, Abnormal pulmonary finding, Renal insufficiency Referrals: Purnima Mcdnoald SITE SUPERVISOR [Primary Care Provider] - Forms: ED Department Discharge Additional Instructions: Transfer to [facility] ER for further evaluation of presenting complaints. Will need chest CT as outpatient to further assess right sided opacity on plain chest film today. Sepsis Event Note (ED) - Evaluation Sepsis Screening Result: No Definite Risk - Focused Exam Vital Signs: Vital Signs Temp Pulse Resp BP Pulse Ox 05/25/21 14:45 60 18 129/59 L 100 05/25/21 14:30 59 L 16 130/58 L 100 05/25/21 14:14 59 L 16 125/61 99 05/25/21 13:45 59 L 17 140/56 L 99 05/25/21 13:30 57 L 17 137/58 L 99 05/25/21 13:15 57 L 16 133/54 L 100 05/25/21 13:00 36.2 C 60 16 147/52 H 100 - My Orders Last 24 Hours: My Active Orders 05/25/21 13:07 Head wo Cont [CT] Stat 05/25/21 13:41 Chest 1V Frontal [CR] Stat 05/25/21 13:49 UA W/MICROSCOPIC [URIN] Stat - Assessment/Plan Last 24 Hours: My Active Orders 05/25/21 13:07 Head wo Cont [CT] Stat 05/25/21 13:41 Chest 1V Frontal [CR] Stat 05/25/21 13:49 UA W/MICROSCOPIC [URIN] Stat
[2021-05-25] MEDS ORDERED: Sodium Chloride 0.9% 500 ML IV SCH (14:30)
[2021-05-25 14:32] LABS: CORONAVIRUS COVID-19 NAA NEGATIVE (NEGATIVE); RESPIRATORY SYNCYTIAL VIR NAA NEGATIVE (NEGATIVE)
[2021-05-25 15:00] VITALS: BP 129/59; PULSE 60
== END 2021-05-25 14:50 ==
LOC: LL.ED 12:54
DX: R53.1 Weakness (principal); R55 Syncope and collapse; H53.8 Other visual disturbances; N28.9 Disorder of kidney and ureter, unspecified; R94.2 Abnormal results of pulmonary function studies; I45.10 Unspecified right bundle-branch block; I48.91 Unspecified atrial fibrillation; I11.0 Hypertensive heart disease with heart failure; I50.9 Heart failure, unspecified; E78.00 Pure hypercholesterolemia, unspecified; J44.9 Chronic obstructive pulmonary disease, unspecified; K21.9 Gastro-esophageal reflux disease without esophagitis; M19.90 Unspecified osteoarthritis, unspecified site; R00.1 Bradycardia, unspecified; E66.9 Obesity, unspecified; Z88.8 Allergy status to other drugs, medicaments and biological substances; Z88.1 Allergy status to other antibiotic agents; Z88.0 Allergy status to penicillin; Z88.2 Allergy status to sulfonamides; Z79.01 Long term (current) use of anticoagulants; Z79.899 Other long term (current) drug therapy; Z20.822 Contact with and (suspected) exposure to COVID-19
CPT/HCPCS: 0241U; 36415; 70450; 71045; 80053; 82947; 83605; 83735; 83880; 84484; 85025; 85379; 85610; 93005; 93010; 99284; 99285-25; J7040

== ENCOUNTER 2021-09-20 13:35 | Inpatient (IN) | payer MEDICARE, OTHER ==
[2021-09-20] MEDS ORDERED: Aspirin 81 MG Tab.Chew PO ONE (13:42)
[2021-09-20 14:16] LABS: PTT,PARTIAL THROMBOPLSTIN TIME 26.5 SEC (23.6-29.8)
[2021-09-20 14:25] LABS: ANION GAP 13.4 meq/L (7-15); CHLORIDE,CL 95 mmol/L (98-107); SODIUM,NA 126 mmol/L (136-145)
[2021-09-20] MEDS: Sodium Chloride 0.9% 1,000 ML IV SCH (16:08)
[2021-09-20] MEDS: Sodium Chloride 0.9% 10 ML Syringe FLUSH PRN (16:08)
[2021-09-20] MEDS ORDERED: Sodium Chloride 0.9% 1,000 ML IV SCH (17:00)
[2021-09-20] MEDS ORDERED: Apixaban 2.5 MG Tab PO SCH (18:00)
[2021-09-20] MEDS: atorvaSTATin 10 MG Tab PO SCH (19:42)
[2021-09-20] MEDS ORDERED: Losartan 50 MG Tab PO SCH ×2 (20:00)
[2021-09-20] MEDS ORDERED: Apixaban 2.5 MG Tab PO ONE (20:15)
[2021-09-21] MEDS: Sodium Chloride 0.9% 1,000 ML IV SCH ×2 (02:46→14:05)
[2021-09-21] MEDS: Magnesium Oxide 400 MG Tab PO SCH (07:23)
[2021-09-21] MEDS: Apixaban 2.5 MG Tab PO SCH ×2 (07:24→17:51)
[2021-09-21] MEDS: Multivitamin Tab PO SCH (07:25)
[2021-09-21] MEDS: Calcium Carbonate/Vitamin D3 625 MG-125 Unit Tab PO SCH (07:25)
[2021-09-21] MEDS: Diltiazem 120 MG Cap.CD PO SCH (07:27)
[2021-09-21] MEDS: Pantoprazole 40 MG Tab.CR PO SCH (07:27)
[2021-09-21 07:44] LABS: ANION GAP 12.5 meq/L (7-15)
[2021-09-21] MEDS ORDERED: Flecainide 100 MG Tab PO SCH (08:00)
[2021-09-21] MEDS ORDERED: Aspirin 81 MG Tab.EC PO SCH (08:00)
[2021-09-21] MEDS ORDERED: Spironolactone 25 MG Tab PO SCH ×2 (08:00)
[2021-09-21] MEDS ORDERED: Sodium Bicarbonate 8.4% 50 MEQ/50 ML Syringe IVPUSH ONE (08:51)
[2021-09-21] MEDS ORDERED: Insulin Regular, Human 100 Units/ML 3 ML Vial IV ONE (08:51)
[2021-09-21] MEDS ORDERED: Calcium Gluconate 1 GM in Sodium Chloride 0.9% 100 ML IV STA (08:51)
[2021-09-21] MEDS ORDERED: 50% Dextrose in Water 50 ML Syringe IVPUSH ONE (08:51)
[2021-09-21] MEDS ORDERED: 50% Dextrose in Water 50 ML Syringe IVPUSH PRN (08:51)
[2021-09-21] MEDS ORDERED: Sodium Polystyrene Sulfonate 15 GM/60 ML Susp 60 ML Bot PO ONE (08:51)
[2021-09-21] MEDS ORDERED: Glucagon,Human Recombinant 1 MG Vial IM PRN (08:51)
[2021-09-21] MEDS: Sodium Chloride 0.9% 10 ML Syringe FLUSH PRN (09:45)
[2021-09-21] MEDS ORDERED: Sodium Chloride 0.9% 1,000 ML IV SCH (13:45)
[2021-09-21] MEDS: atorvaSTATin 10 MG Tab PO SCH (19:32)
[2021-09-21] MEDS ORDERED: Losartan 50 MG Tab PO SCH (20:00)
[2021-09-22] MEDS: Sodium Chloride 0.9% 1,000 ML IV SCH (00:44)
[2021-09-22] MEDS: Multivitamin Tab PO SCH (07:33)
[2021-09-22] MEDS: Magnesium Oxide 400 MG Tab PO SCH (07:33)
[2021-09-22] MEDS: Apixaban 2.5 MG Tab PO SCH (07:33)
[2021-09-22] MEDS: Pantoprazole 40 MG Tab.CR PO SCH (07:34)
[2021-09-22] MEDS: Diltiazem 120 MG Cap.CD PO SCH (07:34)
[2021-09-22] MEDS: Calcium Carbonate/Vitamin D3 625 MG-125 Unit Tab PO SCH (07:34)
[2021-09-22] MEDS ORDERED: Aspirin 81 MG Tab.EC PO SCH (08:00)
[2021-09-22 08:01] LABS: ANION GAP 10.6 meq/L (7-15)
[2021-09-22 10:28] VITALS: BP 143/56; PULSE 69
== END 2021-09-22 12:23 | disposition home or self-care (01) | DRG 683 ==
LOC: LL.ED 13:35 → LL.MS 16:25
PROVIDERS: ADMIT Nurse Practitioner Family; ATTEND Nurse Practitioner Family
DX: N17.9 Acute kidney failure, unspecified (principal); E87.1 Hypo-osmolality and hyponatremia; R00.1 Bradycardia, unspecified; R53.83 Other fatigue; G47.33 Obstructive sleep apnea (adult) (pediatric); I10 Essential (primary) hypertension; E87.5 Hyperkalemia; E86.0 Dehydration; T46.2X5A Adverse effect of other antidysrhythmic drugs, initial encounter; I11.0 Hypertensive heart disease with heart failure; G40.909 Epilepsy, unspecified, not intractable, without status epilepticus; Z88.0 Allergy status to penicillin; Z88.2 Allergy status to sulfonamides; Z88.8 Allergy status to other drugs, medicaments and biological substances; E83.42 Hypomagnesemia; E66.9 Obesity, unspecified; I50.9 Heart failure, unspecified; K21.9 Gastro-esophageal reflux disease without esophagitis; E78.5 Hyperlipidemia, unspecified; E87.6 Hypokalemia; Z96.653 Presence of artificial knee joint, bilateral; I48.0 Paroxysmal atrial fibrillation; J44.9 Chronic obstructive pulmonary disease, unspecified; Z68.37 Body mass index [BMI] 37.0-37.9, adult; Z86.010 Personal history of colon polyps; Z87.19 Personal history of other diseases of the digestive system; Z98.42 Cataract extraction status, left eye; Z98.41 Cataract extraction status, right eye; Z90.49 Acquired absence of other specified parts of digestive tract; Y92.89 Other specified places as the place of occurrence of the external cause; Z79.82 Long term (current) use of aspirin; Z79.899 Other long term (current) drug therapy; Z87.09 Personal history of other diseases of the respiratory system; Z79.01 Long term (current) use of anticoagulants; Z86.73 Personal history of transient ischemic attack (TIA), and cerebral infarction without residual deficits; Z97.3 Presence of spectacles and contact lenses; Z90.721 Acquired absence of ovaries, unilateral
CPT/HCPCS: 36415; 71046; 80048; 80053; 82947; 83880; 84484; 85025; 85379; 85610; 85730; 86140; 93005; 93010; 99223; 99233; 99285-25; A9270-GY; J0610; J1815-GY; J3490; J7030

== ENCOUNTER 2021-09-30 09:56 | Inpatient (IN) | payer MEDICARE, OTHER ==
[2021-09-30 10:29] LABS: CHLORIDE,CL 90 mmol/L (98-107)
[2021-09-30 10:31] LABS: ANION GAP 11.8 meq/L (7-15); SODIUM,NA 122 mmol/L (136-145)
[2021-09-30] MEDS ORDERED: Simethicone 125 MG Tab.Chew PO PRN (12:00)
[2021-09-30] MEDS ORDERED: Acetaminophen 325 MG Tab PO PRN (12:00)
[2021-09-30] MEDS ORDERED: Ondansetron 4 MG Tab.DIS PO PRN (12:00)
[2021-09-30] MEDS ORDERED: Polyethylene Glycol 3350 Powder 17 GM Packet PO PRN (12:07)
[2021-09-30] MEDS: Furosemide 40 MG/4 ML VIAL IVPUSH SCH ×2 (13:05→17:34)
[2021-09-30 15:44] LABS: ANION GAP 11.5 meq/L (7-15)
[2021-09-30] MEDS: Apixaban 5 MG Tab PO SCH (17:33)
[2021-09-30] MEDS: Losartan 50 MG Tab PO SCH (17:33)
[2021-09-30] MEDS: Sodium Chloride 0.9% 10 ML Syringe FLUSH PRN (17:34)
[2021-09-30] MEDS: atorvaSTATin 10 MG Tab PO SCH (19:09)
[2021-09-30 19:18] LABS: ANION GAP 10.9 meq/L (7-15)
[2021-09-30 22:57] LABS: ANION GAP 10.4 meq/L (7-15)
[2021-10-01 03:32] LABS: ANION GAP 9.5 meq/L (7-15)
[2021-10-01] MEDS: Calcium Carbonate/Vitamin D3 625 MG-125 Unit Tab PO SCH (07:33)
[2021-10-01] MEDS: Magnesium Chloride 64 MG Tab.ER PO SCH (07:34)
[2021-10-01] MEDS: Multivitamin Tab PO SCH (07:34)
[2021-10-01] MEDS: Aspirin 81 MG Tab.EC PO SCH (07:35)
[2021-10-01] MEDS: Apixaban 5 MG Tab PO SCH ×2 (07:35→17:33)
[2021-10-01 07:36] LABS: ANION GAP 9.1 meq/L (7-15)
[2021-10-01] MEDS: Losartan 50 MG Tab PO SCH ×2 (07:36→17:33)
[2021-10-01] MEDS: Diltiazem 120 MG Cap.CD PO SCH (07:36)
[2021-10-01] MEDS: Furosemide 40 MG/4 ML VIAL IVPUSH SCH ×3 (07:37→17:31)
[2021-10-01] MEDS: Sodium Chloride 0.9% 10 ML Syringe FLUSH PRN ×2 (07:41→12:34)
[2021-10-01] MEDS ORDERED: Pantoprazole 40 MG Tab.CR PO SCH ×2 (08:00→21:00)
[2021-10-01] MEDS: atorvaSTATin 10 MG Tab PO SCH (19:52)
[2021-10-02] MEDS: Aspirin 81 MG Tab.EC PO SCH (07:57)
[2021-10-02] MEDS: Multivitamin Tab PO SCH (07:57)
[2021-10-02] MEDS: Magnesium Chloride 64 MG Tab.ER PO SCH (07:57)
[2021-10-02] MEDS: Apixaban 5 MG Tab PO SCH (07:57)
[2021-10-02] MEDS: Calcium Carbonate/Vitamin D3 625 MG-125 Unit Tab PO SCH (07:58)
[2021-10-02] MEDS: Furosemide 40 MG/4 ML VIAL IVPUSH SCH (07:59)
[2021-10-02] MEDS: Losartan 50 MG Tab PO SCH (08:01)
[2021-10-02] MEDS: Diltiazem 120 MG Cap.CD PO SCH (08:02)
[2021-10-02 14:33] LABS: ANION GAP 11.3 meq/L (7-15)
[2021-10-02 16:12] VITALS: BP 133/59; PULSE 65
== END 2021-10-02 16:05 | disposition home or self-care (01) | DRG 641 ==
LOC: LL.CLIN 09:56 → LL.MS 11:11
PROVIDERS: ADMIT Hospitalist; ATTEND Hospitalist
DX: E87.1 Hypo-osmolality and hyponatremia (principal); N17.9 Acute kidney failure, unspecified; E87.5 Hyperkalemia; J44.9 Chronic obstructive pulmonary disease, unspecified; E87.70 Fluid overload, unspecified; E83.42 Hypomagnesemia; I48.0 Paroxysmal atrial fibrillation; I12.9 Hypertensive chronic kidney disease with stage 1 through stage 4 chronic kidney disease, or unspecified chronic kidney disease; N18.30 Chronic kidney disease, stage 3 unspecified; K21.9 Gastro-esophageal reflux disease without esophagitis; Z96.653 Presence of artificial knee joint, bilateral; Z79.82 Long term (current) use of aspirin; Z79.899 Other long term (current) drug therapy; Z86.010 Personal history of colon polyps; Z97.3 Presence of spectacles and contact lenses; Z98.42 Cataract extraction status, left eye; Z98.41 Cataract extraction status, right eye; Z98.890 Other specified postprocedural states; Z90.89 Acquired absence of other organs; Z79.01 Long term (current) use of anticoagulants; Z86.73 Personal history of transient ischemic attack (TIA), and cerebral infarction without residual deficits; Z90.49 Acquired absence of other specified parts of digestive tract; Z90.722 Acquired absence of ovaries, bilateral
CPT/HCPCS: 36415; 80048; 83930; 83935; 84300; 84443; 85025; A9270-GY; J1940; J3490

== ENCOUNTER 2022-02-18 10:06 | Emergency (ER) | payer MEDICARE, OTHER ==
[2022-02-18] MEDS ORDERED: Sodium Chloride 0.9% 10 ML Syringe FLUSH PRN (10:11)
[2022-02-18 10:50] VITALS: BP 154/68; PULSE 67
[2022-02-18 11:04] LABS: ANION GAP 5.3 meq/L (7-15); CHLORIDE,CL 103 mmol/L (98-107); SODIUM,NA 138 mmol/L (136-145)
[2022-02-18 11:05] LABS: ESTIMATED GFR 41 mL/min (>=60)
== END 2022-02-18 11:45 | disposition home or self-care (01) ==
LOC: LL.ED 10:06
DX: I48.0 Paroxysmal atrial fibrillation (principal); E78.00 Pure hypercholesterolemia, unspecified; I11.0 Hypertensive heart disease with heart failure; I50.9 Heart failure, unspecified; J44.9 Chronic obstructive pulmonary disease, unspecified; E66.9 Obesity, unspecified; Z68.30 Body mass index [BMI] 30.0-30.9, adult; Z88.0 Allergy status to penicillin; Z88.1 Allergy status to other antibiotic agents; Z88.8 Allergy status to other drugs, medicaments and biological substances; Z79.01 Long term (current) use of anticoagulants; Z79.899 Other long term (current) drug therapy
CPT/HCPCS: 36415; 71045; 80053; 83735; 84100; 84484; 85025; 85610; 85730; 87804; 93010; 99284; 99285

== ENCOUNTER 2022-03-02 10:35 | Emergency (ER) | payer MEDICARE, OTHER ==
[2022-03-02] MEDS ORDERED: Sodium Chloride 0.9% 10 ML Syringe FLUSH PRN (10:46)
[2022-03-02 10:50] VITALS: BP 161/69; PULSE 110
[2022-03-02 11:54] LABS: ANION GAP 5.7 meq/L (7-15); CHLORIDE,CL 105 mmol/L (98-107); SODIUM,NA 140 mmol/L (136-145)
[2022-03-02 11:55] LABS: ESTIMATED GFR 46 mL/min (>=60)
[2022-03-02] MEDS: Aspirin 81 MG Tab.Chew PO ONE (13:53)
[2022-03-02] MEDS: Aspirin 81 MG Tab.Chew ONE (14:59)
== END 2022-03-02 16:05 | disposition home or self-care (01) ==
LOC: LL.ED 10:35
DX: R07.89 Other chest pain (principal); I48.0 Paroxysmal atrial fibrillation; I11.0 Hypertensive heart disease with heart failure; I50.9 Heart failure, unspecified; E78.00 Pure hypercholesterolemia, unspecified; K21.9 Gastro-esophageal reflux disease without esophagitis; E66.9 Obesity, unspecified; Z68.36 Body mass index [BMI] 36.0-36.9, adult; Z88.8 Allergy status to other drugs, medicaments and biological substances; Z88.1 Allergy status to other antibiotic agents; Z88.0 Allergy status to penicillin; Z79.01 Long term (current) use of anticoagulants; Z79.82 Long term (current) use of aspirin; Z79.899 Other long term (current) drug therapy
CPT/HCPCS: 36415; 80053; 83735; 84484; 85025; 93005; 93010; 99284; 99285; A9270-GY

== ENCOUNTER 2022-06-07 12:05 | Emergency (ER) | payer MEDICARE, OTHER ==
[2022-06-07] MEDS ORDERED: Sodium Chloride 0.9% 10 ML Syringe FLUSH PRN (12:10)
[2022-06-07 13:02] LABS: PTT,PARTIAL THROMBOPLSTIN TIME 29.8 SEC (23.6-29.8)
[2022-06-07] MEDS ORDERED: cefTRIAXone 1 GM in Sodium Chloride 0.9% 100 ML IV ONE (13:06)
[2022-06-07 13:07] LABS: ANION GAP 5.3 meq/L (7-15); CHLORIDE,CL 102 mmol/L (98-107); ESTIMATED GFR 41 mL/min (>=60); SODIUM,NA 137 mmol/L (136-145)
[2022-06-07] MEDS ORDERED: Sodium Chloride 0.9% 500 ML IV SCH (13:15)
[2022-06-07 13:55] LABS: CORONAVIRUS COVID-19 NAA NEGATIVE (NEGATIVE); RESPIRATORY SYNCYTIAL VIR NAA NEGATIVE (NEGATIVE)
[2022-06-07 17:10] VITALS: BP 173/64; PULSE 60
== END 2022-06-07 15:05 | disposition home or self-care (01) ==
LOC: LL.ED 12:05
DX: N39.0 Urinary tract infection, site not specified (principal); I11.0 Hypertensive heart disease with heart failure; I50.9 Heart failure, unspecified; Z20.822 Contact with and (suspected) exposure to COVID-19; Z88.2 Allergy status to sulfonamides; Z88.0 Allergy status to penicillin; Z79.899 Other long term (current) drug therapy
CPT/HCPCS: 0241U; 36415; 71045; 80053; 81001; 82550; 83605; 83735; 83880; 84443; 84484; 85025; 85379; 85610; 85730; 87086; 87088; 87186; 93005; 93010; 96361; 96365; 99284; 99285-25; J0696; J7040

== ENCOUNTER 2022-06-14 13:59 | Emergency (ER) | payer MEDICARE, OTHER ==
[2022-06-14] MEDS ORDERED: LORazepam 0.5 MG Tab PO ONE (14:16)
[2022-06-15 08:02] VITALS: BP 146/52; PULSE 64
== END 2022-06-14 17:15 | disposition home or self-care (01) ==
LOC: LL.ED 13:59
DX: F41.9 Anxiety disorder, unspecified (principal); I48.91 Unspecified atrial fibrillation; I11.0 Hypertensive heart disease with heart failure; I50.9 Heart failure, unspecified; E78.00 Pure hypercholesterolemia, unspecified; Z88.2 Allergy status to sulfonamides; Z88.8 Allergy status to other drugs, medicaments and biological substances; Z88.0 Allergy status to penicillin
CPT/HCPCS: 36415; 84443; 84484; 99284; A9270-GY

== ENCOUNTER 2023-07-26 12:42 | Emergency (ER) | payer MEDICARE, OTHER ==
[2023-07-26] MEDS ORDERED: Sodium Chloride 0.9% 10 ML Syringe FLUSH PRN (12:48)
[2023-07-26 13:33] LABS: BASOPHILS ABSOLUTE AUTO 0.01 K/uL (0.00-0.20); BASOPHILS PERCENT AUTO 0.1 % (0.0-2.0); EOSINOPHILS ABSOLUTE AUTO 0.01 K/uL (0.00-0.50); EOSINOPHILS PERCENT AUTO 0.1 % (0.0-5.0); HEMATOCRIT 40.8 % (34.0-46.0); HEMOGLOBIN 14.2 g/dL (11.7-15.5); LYMPHOCYTES ABSOLUTE AUTO 1.53 K/uL (0.50-3.50); LYMPHOCYTES PERCENT AUTO 20.4 % (10.0-50.0); MEAN CORPUSCULAR HEMOGLOBIN 32.6 pg (28.2-33.3); MEAN CORPUSCULAR HGB CONC 34.8 g/dL (31.7-36.0); MEAN CORPUSCULAR VOLUME 93.8 fL (84.0-98.0); MONOCYTES ABSOLUTE AUTO 0.67 K/uL (0.00-1.00); MONOCYTES PERCENT AUTO 8.9 % (2.0-14.0); NEUTROPHILS ABSOLUTE AUTO 5.28 K/uL (1.40-7.00); NEUTROPHILS PERCENT AUTO 70.5 % (45.0-80.0); PLATELET COUNT,PLT 241 K/uL (150-350); RED BLOOD CELL COUNT 4.35 M/uL (3.77-5.09); RED CELL DISTRIBUTION WIDTH 12.5 % (11.2-14.1); WHITE BLOOD CELL COUNT,WBC 7.5 K/uL (4.0-10.2)
[2023-07-26 13:49] LABS: PROTHROMBIN TIME 10.1 SEC (9.0-11.1)
[2023-07-26 13:56] LABS: ALBUMIN 3.8 g/dL (3.4-5.0); BILIRUBIN TOTAL 0.7 mg/dL (0.2-1.0); CALCIUM 10.5 mg/dL (8.5-10.1); CARBON DIOXIDE,CO2 23.7 mmol/L (21.0-32.0); CREATININE 1.26 mg/dL (0.51-1.17); EST CRCL DRUG DOSING (CG) 25.53 mL/min; PROTEIN TOTAL,TP 7.6 g/dL (6.4-8.2)
[2023-07-26 13:57] LABS: ANION GAP 14.3 meq/L (7-15)
[2023-07-26 14:15] LABS: CORONAVIRUS COVID-19 NAA NEGATIVE (NEGATIVE); INFLUENZA A NAA NEGATIVE (NEGATIVE); INFLUENZA B NAA NEGATIVE (NEGATIVE); RESPIRATORY SYNCYTIAL VIR NAA NEGATIVE (NEGATIVE)
== END 2023-07-26 16:30 | disposition home or self-care (01) ==
LOC: LL.ED 12:42
DX: I11.0 Hypertensive heart disease with heart failure (principal); I50.9 Heart failure, unspecified; R07.89 Other chest pain; G98.8 Other disorders of nervous system; I48.91 Unspecified atrial fibrillation; K21.9 Gastro-esophageal reflux disease without esophagitis; J44.9 Chronic obstructive pulmonary disease, unspecified; E66.9 Obesity, unspecified; Z79.01 Long term (current) use of anticoagulants; Z79.899 Other long term (current) drug therapy; Z88.0 Allergy status to penicillin; Z88.2 Allergy status to sulfonamides; Z88.8 Allergy status to other drugs, medicaments and biological substances
CPT/HCPCS: 0241U; 36415; 70450; 71045; 80053; 84484; 85025; 85610; 93005; 93010; 99284; 99285

== ENCOUNTER 2024-04-16 10:00 | Emergency (ER) | payer MEDICARE, OTHER ==
[2024-04-16] MEDS: Diltiazem 25 MG/5 ML SDV IVPUSH ONE ×2 (10:45→11:45)
[2024-04-16 10:52] LABS: BASOPHILS ABSOLUTE AUTO 0.04 K/uL (0.00-0.20); BASOPHILS PERCENT AUTO 0.7 % (0.0-2.0); EOSINOPHILS ABSOLUTE AUTO 0.09 K/uL (0.00-0.50); EOSINOPHILS PERCENT AUTO 1.5 % (0.0-5.0); HEMOGLOBIN 13.9 g/dL (11.7-15.5); MEAN CORPUSCULAR HEMOGLOBIN 32.9 pg (28.2-33.3); MEAN CORPUSCULAR HGB CONC 33.9 g/dL (31.7-36.0); MEAN CORPUSCULAR VOLUME 96.9 fL (84.0-98.0); MONOCYTES ABSOLUTE AUTO 0.77 K/uL (0.00-1.00); MONOCYTES PERCENT AUTO 12.7 % (2.0-14.0); NEUTROPHILS ABSOLUTE AUTO 3.47 K/uL (1.40-7.00); NEUTROPHILS PERCENT AUTO 57.1 % (45.0-80.0); PLATELET COUNT,PLT 230 K/uL (150-350); RED BLOOD CELL COUNT 4.23 M/uL (3.77-5.09); RED CELL DISTRIBUTION WIDTH 11.7 % (11.2-14.1); WHITE BLOOD CELL COUNT,WBC 6.1 K/uL (4.0-10.2)
[2024-04-16 11:03] LABS: ALANINE AMINOTRANSFERASE,ALT 28 U/L (12-78); ALBUMIN 3.7 g/dL (3.4-5.0); ALKALINE PHOSPHATASE 106 IU/L (46-116); ASPARTATE AMNIOTRANSFERASE,AST 22 U/L (15-37); BILIRUBIN TOTAL 0.5 mg/dL (0.2-1.0); BLOOD UREA NITROGEN,BUN 26 mg/dL (7-18); CALCIUM 10.4 mg/dL (8.5-10.1); CHLORIDE,CL 103 mmol/L (98-107); CREATININE 1.13 mg/dL (0.51-1.17); GLUCOSE RANDOM 133 mg/dL (70-99); MAGNESIUM 2.2 mg/dL (1.8-2.4); PROTEIN TOTAL,TP 7.3 g/dL (6.4-8.2); SODIUM,NA 140 mmol/L (136-145)
[2024-04-16 11:07] LABS: ANION GAP 15.9 meq/L (7-15); CARBON DIOXIDE,CO2 25.1 mmol/L (21.0-32.0); ESTIMATED GFR 48 mL/min (>=60)
[2024-04-16] MEDS: Sodium Chloride 0.9% 10 ML Syringe FLUSH PRN (11:49)
[2024-04-16] MEDS: Metoprolol Tartrate 5 MG/5 ML SDV IVPUSH ONE (13:03)
[2024-04-16 17:04] VITALS: BP 144/52; PULSE 65
== END 2024-04-16 15:30 | disposition home or self-care (01) ==
LOC: LL.ED 10:45
DX: I48.0 Paroxysmal atrial fibrillation (principal); I11.0 Hypertensive heart disease with heart failure; I50.9 Heart failure, unspecified; I48.91 Unspecified atrial fibrillation; J44.9 Chronic obstructive pulmonary disease, unspecified; K21.9 Gastro-esophageal reflux disease without esophagitis; E66.9 Obesity, unspecified; Z90.49 Acquired absence of other specified parts of digestive tract; Z79.01 Long term (current) use of anticoagulants; Z79.899 Other long term (current) drug therapy; Z79.51 Long term (current) use of inhaled steroids; Z88.8 Allergy status to other drugs, medicaments and biological substances; Z88.2 Allergy status to sulfonamides; Z88.0 Allergy status to penicillin; Z68.31 Body mass index [BMI] 31.0-31.9, adult
CPT/HCPCS: 36415; 71046; 80053; 83735; 84484; 85025; 93005; 93010; 96374; 96375; 96376; 99284; 99285-25; J3490

== ENCOUNTER 2024-11-21 09:23 | Day surgery (SDC) | payer MEDICARE, OTHER ==
[~2024-11-21 09:23] MED LIST changes: -Lactated Ringers 1,000 ML IV SCH; +Midazolam 1 MG/ML 2 ML SDV ONE
[2024-11-21] MEDS: Lactated Ringers 1,000 ML IV SCH (10:09)
[2024-11-21] MEDS: Metoprolol Tartrate 5 MG/5 ML SDV IVPUSH ONE (10:30)
[2024-11-21] MEDS ORDERED: Metoprolol Tartrate 5 MG/5 ML SDV IV ONE (11:18)
[2024-11-21] MEDS ORDERED: Glycopyrrolate 0.2 MG/ML SDV IVPUSH ONE (11:18)
[2024-11-21 12:33] VITALS: BP 173/65; PULSE 60
== END 2024-11-21 13:20 | disposition home or self-care (01) ==
LOC: LL.SDS 09:23
PROVIDERS: ATTEND Surgery
DX: Z12.11 Encounter for screening for malignant neoplasm of colon (principal); D12.2 Benign neoplasm of ascending colon; K21.00 Gastro-esophageal reflux disease with esophagitis, without bleeding; K57.30 Diverticulosis of large intestine without perforation or abscess without bleeding; Z80.0 Family history of malignant neoplasm of digestive organs; N18.31 Chronic kidney disease, stage 3a
CPT/HCPCS: 00813; 99100; J1596; J2250; J2704; J3490; J7120